=== PATIENT | male | born 1975 | race Caucasian/White ===

== ENCOUNTER 2017-11-18 15:38 | Emergency (ER) | payer MEDICAID ==
[2017-11-18 15:51] VITALS: BP 152/92
[2017-11-18] MEDS ORDERED: Tetan/Diph/Pertus SYR(Tdap)* 0.5 ML SYR(BOOSTRIX) use SYR IM ONE (16:11)
--- NOTE | 2017-11-18 16:39 | UC ---
Laceration HPI - HPI Summary HPI Summary: Pt c/o laceration to left thumb. 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 Pt is not UTD with tetanus. Bleeding controlled. - History Of Current Complaint Chief Complaint: UCTrauma Stated Complaint: LEFT THUMB LAC Time Seen by Provider: 11/18/17 16:07 Hx Obtained From: Patient Laceration Location: Finger Mechanism Of Injury: Sharp Trauma Onset/Duration: Sudden Onset Severity: Mild Pain Intensity: 4 Pain Scale Used: 0-10 Numeric Aggravating Factors: Position, Movement Related History: Dominant Hand Right - Allergies/Home Medications Allergies/Adverse Reactions: Allergies Allergy/AdvReac Type Severity Reaction Status Date / Time Penicillins AdvReac Intermediate THRUSH Verified 11/18/17 15:52 PMH/Surg Hx/FS Hx/Imm Hx Previously Healthy: Yes - Surgical History Surgical History: None - Family History Known Family History: Positive: Cardiac Disease - Social History Occupation: Employed Full-time Lives: With Family Alcohol Use: None Substance Use Type: None Smoking Status (MU): Former Smoker Type: Cigarettes Amount Used/How Often: 1 1/2 ppd Length of Time of Smoking/Using Tobacco: 24 yrs Have You Smoked in the Last Year: Yes When Did the Patient Quit Smoking/Using Tobacco: 03/23 - Immunization History Vaccination Up to Date: No Review of Systems Constitutional: Negative Skin: Other - laceration left thumb Eyes: Negative ENT: Negative Respiratory: Negative Cardiovascular: Negative Gastrointestinal: Negative Genitourinary: Negative Motor: Negative Neurovascular: Negative Musculoskeletal: Negative Neurological: Negative Psychological: Negative Is Patient Immunocompromised?: No All Other Systems Reviewed And Are Negative: Yes Physical Exam Triage Information Reviewed: Yes Appearance: Well-Appearing Vital Signs: Initial Vital Signs Temp 98.2 F 11/18/17 15:47 Pulse 91 11/18/17 15:47 Resp 18 11/18/17 15:47 BP 152/92 11/18/17 15:47 Pulse Ox 100 11/18/17 15:47 Vital Signs Reviewed: Yes Eye Exam: Normal ENT Exam: Normal Neck exam: Normal Respiratory: Positive: No respiratory distress Musculoskeletal: Positive: Strength Intact, ROM Intact Neurological Exam: Normal Psychological Exam: Normal Skin Exam: Other - laceration to left thumb anterior aspect Laceration Repair - Laceration Repair 1 Description: Linear Laceration Size After Repair: Length (cm) - 1, Width (mm) - 1, Depth (mm) - 2 Modified For Repair: No Irrigation With Pressure Irrigation Device: Yes Closure Material: Skin Adhesive Closure Method: Single Layer Suture Of: Skin Laceration Course/Dx - Differential Dx - Laceration/Wound Differental Diagnoses: Laceration Provider Diagnoses: left thumb laceration repair with skin adhesive Discharge - Discharge Plan Condition: Stable Disposition: HOME Patient Education Materials: Skin Adhesive Care (ED) Referrals: Cintia Copeland MD [Primary Care Provider] - If Needed
== END 2017-11-18 16:29 | disposition home or self-care (01) ==
LOC: UCCORT 15:38
DX: S61.012A Laceration without foreign body of left thumb without damage to nail, initial encounter (principal); W29.0XXA Contact with powered kitchen appliance, initial encounter; Y93.9 Activity, unspecified; Y92.9 Unspecified place or not applicable; Z23 Encounter for immunization; Z88.0 Allergy status to penicillin; Z87.891 Personal history of nicotine dependence
CPT/HCPCS: 12001; 90715; 96372; 99211; G0463

== ENCOUNTER 2019-02-04 13:40 | Emergency (ER) | payer MEDICARE, MEDICAID ==
--- OUTSIDE RECORDS SUMMARY | 2019-02-04 13:54 | XMS REPORT | Continuity of Care Document ---
:1975 External Reference #:[id number] Author Name Aleyda Cobb Care Team Providers Name Role Phone Cintia Copeland MD Care Team Information Computer Methods Analyst Unavailable Cintia Copeland MD Primary Care Physician Unavailable Payers Date Identification Numbers Payment Provider Subscriber Policy Number: [id number] Medicare Jonel Law PayID: [id number] [address] [place] [address] Policy Number: [id number] Medicaid Jonel Law PayID: [id number] [address] [place] [address] Social History Type Date Description Comments Sex Unknown Tobacco Use Start: Unknown End: Used To Smoke Cigarettes But Unknown Quit. ETOH Use Rare Use Of Alcohol Recreational Drug Use Treated For Substance Abuse In The Past Allergies, Adverse Reactions, Alerts Active Allergies Reaction Severity Comments Date Penicillin Hives Moderate 07/30/2018 Medications Active Medications SIG Qnty Indications Ordering Date Provider Percocet 1-2 by mouth four 20tabs Rafeal Paraad, 01/02/2019 5-325mg Tablets times a day as M.D. needed for pain Fluticasone Propionate 2 sprays both 32gm Rafael Parada, 07/30/2018 nostrils every M.D. 50mcg/Act Suspension day Gabapentin 1 by mouth bid Unknown 300mg Capsules Loratadine 1 by mouth every Unknown 10mg Capsules day Metoprolol Succinate 1 by mouth every Unknown ER day 50mg Tablets ER 24HR Soma prn Unknown 350mg Tablets Oxcarbazepine 2 po qd Unknown 300mg Tablets History Medications Azithromycin 1 by mouth every 5tabs Rafael Parada, 11/28/2018 - 500mg Tablets day M.D. 01/09/2019 Percocet 1-2 by mouth four 20tabs Tal Rafael, 09/17/2018 - 5-325mg Tablets times a day as M.D. 11/04/2018 needed for pain Azithromycin 1 by mouth every 5tabs Tal Rafael, 09/17/2018 - 500mg Tablets day M.D. 09/24/2018 Dexamethasone 1 by mouth daily 3tabs Rafael Parada, 09/17/2018 - 6mg Tablets in the morning M.D. 09/24/2018 Azithromycin 1 by mouth every 5tabs Rafael Parada, 07/30/2018 - 500mg Tablets day M.D. 09/24/2018 Hydrocodone prn Unknown - Bitartrate/Acetaminophe 09/17/2018 n 10-325mg Tablets Vital Signs Date Vital Result Comment 01/09/2019 10:16am Weight 303.00 lb Height 68 inches 5'8" BMI (Body Mass Index) 46.1 kg/m2 BP Systolic 146 mmHg BP Diastolic 85 mmHg Heart Rate 76 /min O2 % BldC Oximetry 97 % Body Temperature 96.9 F Pain Level 3 11/05/2018 11:16am Weight 312.00 lb Height 68 inches 5'8" BMI (Body Mass Index) 47.4 kg/m2 BP Systolic 123 mmHg BP Diastolic 85 mmHg Heart Rate 75 /min O2 % BldC Oximetry 98 % Body Temperature 97.8 F Pain Level 0 09/24/2018 11:27am Weight 305.00 lb Height 68 inches 5'8" BMI (Body Mass Index) 46.4 kg/m2 BP Systolic 157 mmHg BP Diastolic 102 mmHg Heart Rate 79 /min O2 % BldC Oximetry 97 % Body Temperature 97.4 F Pain Level 6 07/30/2018 10:44am Weight 306.00 lb Height 68 inches 5'8" BMI (Body Mass Index) 46.5 kg/m2 BP Systolic 132 mmHg BP Diastolic 84 mmHg Heart Rate 65 /min O2 % BldC Oximetry 97 % Body Temperature 96.9 F Pain Level 4 Results Test Date Facility Test Result H/L Range Note Laboratory test 09/17/2018 [facility] Surgical SEE RESULT [address] [place] [address] [phone] 1 SEE RESULT BELOW Name: JONEL LAW Urbano Leslie : [address]: Rafael Parada MD Acct: [id number] Unit: [id number] AGE: 43 Location: [facility] Re09/17/18 SEX: M Status: REG REF SPEC: [id number] ESE: 09/17/181320 [facility] DR: Rafael Parada MD REQ: [id number] RECD: 09/17/18 STATUS: SOUT _ ORDERED: LEVEL 4 COMMENTS: [id number] FINAL DIAGNOSIS Right nasal cavity, biopsy: -- Benign sinonasal polyp. CLINICAL HISTORY No history given GROSS DESCRIPTION The specimen is received in formalin labeled, Right Nasal Cavity Biopsy, and consists of a 0.4 x 0.3 x 0 1 cm neely-brown irregular soft tissue fragment admixed with scant probable bone. Entirely submitted, one cassette. Signed by and Reported on: Zaira Springer MD 09/19/18 1052 END OF REPORT DEPARTMENT OF PATHOLOGY, [address] [place] [address] Juan Skinner M.D. Director [facility] # [id number] Procedures Date Code Description Status 09/17/2018 95267 Stereotactic Computer-Assisted, Cranial, Extradural Completed 09/17/2018 87650 Nasal/Sinus Endosc.W.Max.Antrost. Completed 09/17/2018 99661 Nasal/Sinus Endosc,Surg.W.Eth/Par Completed 09/17/2018 26875 Septoplasty Completed 09/17/2018 52006 Submucous Resect.Turb.Par Or Comp Completed 09/17/2018 08136 Anesthesia, Nose & Accessory Sinus Surgery Not Otherwise Completed Spec 08/29/2018 77818 Cat Scan Maxillofacial W/O Contrast,computed tomography Completed 08/29/2018 40136 Cat Scan Maxillofacial W/O Contrast,computed tomography Completed 07/30/2018 28951 Nasal Endoscopy, Diag. Completed Encounters Type Date Location Provider Dx Diagnosis Office Visit 07/30/2018 Main Office Rafael Parada M.D. J32.9 Chronic sinusitis, 10:15a unspecified J33.0 Polyp of nasal cavity J34.2 Deviated nasal septum E66.9 Obesity, unspecified
[2019-02-04 14:31] VITALS: BP 174/99
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
== END 2019-02-04 14:57 | disposition home health service (06) ==
LOC: UCCORT 13:40
DX: R10.13 Epigastric pain (principal); I10 Essential (primary) hypertension; Z79.899 Other long term (current) drug therapy; Z87.891 Personal history of nicotine dependence
CPT/HCPCS: 99212; G0463

== ENCOUNTER 2019-04-17 11:01 | Emergency (ER) | payer MEDICAID, MEDICARE ==
--- OUTSIDE RECORDS SUMMARY | 2019-04-17 11:26 | XMS REPORT | Continuity of Care Document ---
:1975 External Reference #:[id number] Author Name Carlos Knapp MD Address [facility] [place] [address] Care Team Providers Name Role Phone Kai Gibbs MD Care Team Information Cuff Turner Unavailable Kai Gibbs MD Primary Care Physician Unavailable Payers Date Identification Numbers Payment Provider Subscriber Policy Number: [id number] Medicare [employer] PayID: [id number] [facility] [address] [place] [address] Policy Number: [id number] Medicaid/Medicare [employer] Name: 2 1 [facility] Federal [employer]-Civil GP PayID: [id number] [address] [place] [address] Problems Active Problems Provider Date Nausea and vomiting Argentina Castillo PA-C Onset: 02/27/2019 Abdominal pain Argentina Castillo PA-C Onset: 02/27/2019 Gastroesophageal reflux disease Argentina Castillo PA-C Onset: 02/27/2019 Essential hypertension Argentina Castillo PA-C Onset: 03/09/2019 Social History Type Date Description Comments Sex Unknown Tobacco Use Start: Unknown End: Patient is a former smoker Unknown Recreational Drug Use Current Drug User marijuana Smoking Status Reviewed: 02/27/19 Patient is a former smoker Allergies, Adverse Reactions, Alerts Active Allergies Reaction Severity Comments Date Penicillin 02/27/2019 Medications Active Medications SIG Qnty Indications Ordering Date Provider Omeprazole 1 cap by mouth 60caps K21.9 Mychal Carsonrdan, DO 02/27/[address] bid 30 minutes before meals Vimpat Take 1 Tablet By Unknown 50mg Tablets Mouth Twice Daily . DO Not Exceed 2 Per 24 Hours Oxcarbazepine Take 1 & 1 2 Unknown 600mg Tablets (One & One Half) Tablets By Mouth Twice Daily Sucralfate Austin Duncan PA 1gm Tablets Ranitidine HCL Take 2 Tablets Unknown 150mg By Mouth as Tablets Needed For Reflux Ondansetron Austin Duncan PA 4mg Tablets Dispers Metoclopramide HCL Take 1 Tablet By Unknown 10mg Mouth Three Tablets Times Daily as Needed For Nausea Metoprolol Tartrate Take 1/2 Unknown 100mg (One-Half) Tablets Tablet By Mouth Once Daily Allopurinol Unknown 100mg Tablets Loratadine Unknown 10mg Tablets Fluticasone Propionate Rafael Parada MD 50mcg/Act Suspension History Medications Omeprazole 40mg bid Austin Duncan PA - 02/[address] Vital Signs Date Vital Result Comment 02/27/2019 1:43pm Height 73 inches 6'1" Weight 295.00 lb BP Systolic 154 mmHg BP Diastolic 95 mmHg Heart Rate 80 /min BMI (Body Mass Index) 38.9 kg/m2 Results Test Date Facility Test Result H/L Range Note Laboratory test 03/17/2019 [facility] [place] Surgical SEE RESULT 1 finding Pathology BELOW Laboratory test 03/17/2019 [facility] [place] [facility] Clotest SEE RESULT 2 finding BELOW 1 SEE RESULT BELOW Name: JONEL LAW : [address]: Carlos Knapp MD Acct: [id number] Unit: [id number] AGE: 43 Location: [facility] Re03/17/19 SEX: M Status: DEP REF SPEC: [id number] ESE: 03/17/[address] [facility] [address]: Carlos Knapp MD REQ: [id number] RECD: 03/17/19 STATUS: ZEINAB HENRIQUEZ DR: Kai Gibbs MD _ ORDERED: LEVEL 4/2 FINAL DIAGNOSIS 1. Gastric body, biopsy: -- Partially denuded gastric oxyntic gland mucosa with diffuse chronic inflammation. -- No active gastritis nor Helicobacter pylori-like organisms identified. See comment. 2. Small bowel, duodenum, biopsy: -- Small bowel mucosa with focal submucosal nonpolarizable foreign material deposition. See comment. -- Normal villous architecture and no significant pathologic abnormality. Comment: An immunohistochemical stain for Helicobacter pylori-like organisms is pending in part 1 and will be reported in an addendum. The small bowel biopsy demonstrates a single foreign material deposit measuring up to 0.35 mm containing enumerable small irregular shaped fragments of refractile, non-polarizable foreign material. No foreign body giant cell reaction is noted. While not specifically identifiable, subcutaneous mucosal foreign material deposits have been associated with ingestion of non-absorbable materials, frequently as components of medications or supplements. Correlation with clinical and endoscopic findings is suggested. CLINICAL HISTORY Nausea; vomiting CONTINUED ON NEXT PAGE DEPARTMENT OF PATHOLOGY, [address] [place] [address] Juan Skinner M.D. Director [facility] # [id number] RUN DATE: 03/18/19 [facility] LAB LIVE PAGE 2 Patient: JONEL LAW Mariama [id number] (Continued) POST-OPERATIVE DIAGNOSIS (Continued) POST-OPERATIVE DIAGNOSIS EGD: esophagus - normal; gastric - mild gastritis; biopsy; duodenum - biopsy GROSS DESCRIPTION 1. The specimen is received in formalin labeled, Gastric Body Biopsies, and consists of two neely-pink irregular soft tissue fragments measuring 0.2 x 0.2 x 0.1 cm and 0.4 x 0.3 x 0.1 cm which are submitted entirely in one cassette. 2. The specimen is received in formalin labeled, Duodenal Biopsies, and consists of three neely-pink irregular soft tissue fragments aggregating 0.4 x 0.3 by up to 0.2 cm which are submitted entirely in one cassette. Signed by and Reported on: Juan Skinner MD 05/29 1121 END OF REPORT DEPARTMENT OF PATHOLOGY, [address] [place] [address] Juan Skinner M.D. Director [facility] # [id number] SEE RESULT BELOW Name: DREWShabanaJONEL : [address]: Carlos Knapp MD Acct: [id number] Unit: [id number] AGE: 43 Location: ENDO Re03/17/19 SEX: M Status: DEP REF SPEC: [id number] ESE: 03/17/[address]: Carlos Knapp MD REQ: [id number] RECD: 03/17/19 STATUS: ZEINAB HENRIQUEZ DR: Kai Gibbs MD _ ORDERED: LEVEL 4/2 FINAL DIAGNOSIS 1. Gastric body, biopsy: -- Partially denuded gastric oxyntic gland mucosa with diffuse chronic inflammation. -- No active gastritis nor Helicobacter pylori-like organisms identified. See comment. 2. Small bowel, duodenum, biopsy: -- Small bowel mucosa with focal submucosal nonpolarizable foreign material deposition. See comment. -- Normal villous architecture and no significant pathologic abnormality. Comment: An immunohistochemical stain for Helicobacter pylori-like organisms is pending in part 1 and will be reported in an addendum. The small bowel biopsy demonstrates a single foreign material deposit measuring up to 0.35 mm containing enumerable small irregular shaped fragments of refractile, non-polarizable foreign material. No foreign body giant cell reaction is noted. While not specifically identifiable, subcutaneous mucosal foreign material deposits have been associated with ingestion of non-absorbable materials, frequently as components of medications or supplements. Correlation with clinical and endoscopic findings is suggested. CLINICAL HISTORY Nausea; vomiting CONTINUED ON NEXT PAGE DEPARTMENT OF PATHOLOGY, [address] [place] [address] Juan Skinner M.D. Director [facility] # [id number] RUN DATE: 03/18/19 [facility] LAB LIVE PAGE 2 Patient: DREWShabanaJONEL [id number] (Continued) POST-OPERATIVE DIAGNOSIS (Continued) POST-OPERATIVE DIAGNOSIS EGD: esophagus - normal; gastric - mild gastritis; biopsy; duodenum - biopsy GROSS DESCRIPTION 1. The specimen is received in formalin labeled, Gastric Body Biopsies, and consists of two neely-pink irregular soft tissue fragments measuring 0.2 x 0.2 x 0.1 cm and 0.4 x 0.3 x 0.1 cm which are submitted entirely in one cassette. 2. The specimen is received in formalin labeled, Duodenal Biopsies, and consists of three neely-pink irregular soft tissue fragments aggregating 0.4 x 0.3 by up to 0.2 cm which are submitted entirely in one cassette. Signed by and Reported on: Juan Skinner MD 05/29 1121 END OF REPORT DEPARTMENT OF PATHOLOGY, [address] [place] [address] Juan Skinner M.D. Director [facility] # [id number] SEE RESULT BELOW Name: JONEL LAW : [address]: Carlos Knapp MD Acct: [id number] Unit: [id number] AGE: 43 Location: ENDO Re03/17/19 SEX: M Status: DEP REF SPEC: [id number] ESE: 07/ SUBM DR: Carlos Knapp MD REQ: [id number] RECD: 03/17/190629 STATUS: ZEINAB HENRIQUEZ DR: Kai Gibbs MD _ ORDERED: LEVEL 4/2, IMMUNO-FIRST ADDENDUM Addendum: An immunohistochemical stain for Helicobacter pylori-like organisms was performed with appropriate controls demonstrating nonspecific polymorphous bacterial contamination. Helicobacter pylori-like organisms are not identified. Addendum Signed (signature on file) Juan Skinner MD 1010 FINAL DIAGNOSIS 1. Gastric body, biopsy: -- Partially denuded gastric oxyntic gland mucosa with diffuse chronic inflammation. -- No active gastritis nor Helicobacter pylori-like organisms identified. See comment. 2. Small bowel, duodenum, biopsy: -- Small bowel mucosa with focal submucosal nonpolarizable foreign material deposition. See comment. -- Normal villous architecture and no significant pathologic abnormality. Comment: An immunohistochemical stain for Helicobacter pylori-like organisms is pending in part 1 and will be reported in an addendum. The small bowel biopsy demonstrates a single foreign material deposit measuring up to 0.35 mm containing enumerable small irregular shaped fragments of refractile, non-polarizable foreign material. No foreign body giant cell reaction is noted. While not specifically identifiable, subcutaneous mucosal foreign material deposits have been associated with ingestion of non-absorbable materials, frequently as CONTINUED ON NEXT PAGE DEPARTMENT OF PATHOLOGY, [address] [place] [address] Juan Skinner M.D. Director [facility] # [id number] RUN DATE: 03/19/19 [facility] LAB LIVE PAGE 2 Patient: JONEL LAW [id number] (Continued) SPECIMEN COMMENTS (Continued) components of medications or supplements. Correlation with clinical and endoscopic findings is suggested. CLINICAL HISTORY Nausea; vomiting POST-OPERATIVE DIAGNOSIS EGD: esophagus - normal; gastric - mild gastritis; biopsy; duodenum - biopsy GROSS DESCRIPTION 1. The specimen is received in formalin labeled, Gastric Body Biopsies, and consists of two neely-pink irregular soft tissue fragments measuring 0.2 x 0.2 x 0.1 cm and 0.4 x 0.3 x 0.1 cm which are submitted entirely in one cassette. 2. The specimen is received in formalin labeled, Duodenal Biopsies, and consists of three neely-pink irregular soft tissue fragments aggregating 0.4 x 0.3 by up to 0.2 cm which are submitted entirely in one cassette. Signed by and Reported on: Juan Skinner MD 05/29 1121 END OF REPORT DEPARTMENT OF PATHOLOGY, [address] [place] [address] Juan Skinner M.D. Director [facility] # [id number] SEE RESULT BELOW Name: JONEL LAW : [address]: Carlos Knapp MD Acct: [id number] Unit: [id number] AGE: 43 Location: ENDO Re03/17/19 SEX: M Status: DEP REF SPEC: [id number] ESE: 03/17/[address] [facility] [address]: Carlos Knapp MD REQ: [id number] RECD: 03/17/193909 STATUS: ZEINAB HENRIQUEZ DR: Kai Gibbs MD _ ORDERED: LEVEL 4/2, IMMUNO-FIRST ADDENDUM Addendum: An immunohistochemical stain for Helicobacter pylori-like organisms was performed with appropriate controls demonstrating nonspecific polymorphous bacterial contamination. Helicobacter pylori-like organisms are not identified. Addendum Signed (signature on file) Juan Skinner MD 1010 FINAL DIAGNOSIS 1. Gastric body, biopsy: -- Partially denuded gastric oxyntic gland mucosa with diffuse chronic inflammation. -- No active gastritis nor Helicobacter pylori-like organisms identified. See comment. 2. Small bowel, duodenum, biopsy: -- Small bowel mucosa with focal submucosal nonpolarizable foreign material deposition. See comment. -- Normal villous architecture and no significant pathologic abnormality. Comment: An immunohistochemical stain for Helicobacter pylori-like organisms is pending in part 1 and will be reported in an addendum. The small bowel biopsy demonstrates a single foreign material deposit measuring up to 0.35 mm containing enumerable small irregular shaped fragments of refractile, non-polarizable foreign material. No foreign body giant cell reaction is noted. While not specifically identifiable, subcutaneous mucosal foreign material deposits have been associated with ingestion of non-absorbable materials, frequently as CONTINUED ON NEXT PAGE DEPARTMENT OF PATHOLOGY, [address] [place] [address] Juan Skinner M.D. Director [facility] # [id number] RUN DATE: 03/19/19 [facility] LAB LIVE PAGE 2 Patient: JONEL LAW [id number] (Continued) SPECIMEN COMMENTS (Continued) components of medications or supplements. Correlation with clinical and endoscopic findings is suggested. CLINICAL HISTORY Nausea; vomiting POST-OPERATIVE DIAGNOSIS EGD: esophagus - normal; gastric - mild gastritis; biopsy; duodenum - biopsy GROSS DESCRIPTION 1. The specimen is received in formalin labeled, Gastric Body Biopsies, and consists of two neely-pink irregular soft tissue fragments measuring 0.2 x 0.2 x 0.1 cm and 0.4 x 0.3 x 0.1 cm which are submitted entirely in one cassette. 2. The specimen is received in formalin labeled, Duodenal Biopsies, and consists of three neely-pink irregular soft tissue fragments aggregating 0.4 x 0.3 by up to 0.2 cm which are submitted entirely in one cassette. Signed by and Reported on: Juan Skinner MD 05/29 1121 END OF REPORT DEPARTMENT OF PATHOLOGY, [address] [place] [address] Juan Skinner M.D. Director [facility] # [id number] SEE RESULT BELOW Name: DREWShabanaJONEL : [address]: Carlos Knapp MD Acct: [id number] Unit: [id number] AGE: 43 Location: ENDO Re03/17/19 SEX: M Status: REG REF SPEC: [id number] ESE: 03/17/[address]: Carlos Knapp MD REQ: [id number] RECD: 03/17/19 STATUS: JOSÉ MIGUEL HENRIQUEZ DR: Kai Gibbs MD _ SOURCE: GAS ANTRUM SPDESC: ORDERED: Clotest Procedure Result Reported Site Clotest Final 03/18/19726 ML Clotest Negative * ML - Main Lab . END OF REPORT DEPARTMENT OF PATHOLOGY, [address] [place] [address] Juan Skinner M.D. Director [facility] # [id number] SEE RESULT BELOW Name: JONEL LAW : [address]: Carlos Knapp MD Acct: [id number] Unit: [id number] AGE: 43 Location: ENDO Re03/17/19 SEX: M Status: REG REF SPEC: [id number] ESE: 03/17/[address] [facility] [address]: Carlos Knapp MD REQ: [id number] RECD: 03/17/19867 STATUS: COMP OTHR DR: Kai Gibbs MD _ SOURCE: GAS ANTRUM SPDESC: ORDERED: Clotest Procedure Result Reported Site Clotest Final 03/18/19- 726 ML Clotest Negative * ML - Main Lab . END OF REPORT DEPARTMENT OF PATHOLOGY, [address] [place] [address] Juan Skinner M.D. Director [facility] # [id number] Plan of Treatment 02/27/2019 - KANDICE Bryant-CK21.9 Gastro-esophageal reflux disease without esophagitisNew Medication:Omeprazole 40 mg - 1 cap by mouth bid 30 minutes before tfnigO65.10 Upper abdominal pain, kcxguqbbqcrU92.2 Nausea with vomiting, unspecified
--- OUTSIDE RECORDS SUMMARY | 2019-04-17 11:26 | XMS REPORT | Continuity of Care Document ---
:1975 External Reference #:[id number] Author Name Kai Gibbs M.D. Address [address] [facility] [address] [place] [address] Care Team Providers Name Role Phone Kai Gibbs MD Care Team Information Pill Coater Unavailable Payers Date Identification Numbers Payment Provider Subscriber Effective: 2015 Policy Number: [id number] Medicare Jonel Law PayID: [id number] [address] [place] [address] Policy Number: [id number] Medicaid/[employer] Jonel Law PayID: [id number] [address] [place] [address] Effective: 2018 Policy Number: [id number] [facility] Jonel Law Expires: 2018 PayID: [id number] [address] [place] [address] Effective: 2001 Policy Number: [id number] BURTON Wu Susi Law Expires: 2003 Group Number: [id number] [address] [address] Group Name: [place] [address] PayID: [id number] Problems Active Problems Provider Date Abdominal pain Onset: 02/27/2019 Essential hypertension Onset: 03/09/2019 Gastroesophageal reflux disease Onset: 02/27/2019 Nausea and vomiting Onset: 02/27/2019 Family History Date Family Member(s) Observation Comments General Hypertension General Peripheral Vascular Disease (PVD) Father 71 Father Hypertension Father Coronary Artery Disease Mother 69 Mother Arthritis Children 2 First Son 10 First Daughter 14 Siblings 2 Social History Type Date Description Comments Sex Unknown Lives With Children Lives With Spouse Work Status Disabled ETOH Use Denies alcohol use Tobacco Use Start: Unknown End: Patient is a former smoker Unknown Recreational Drug Use Formerly used Marijuana sporadically Smoking Status Reviewed: 09/10/17 Patient is a former smoker Allergies, Adverse Reactions, Alerts Active Allergies Reaction Severity Comments Date Penicillins 02/10/2019 Penicillin 03/10/2019 Medications Active Medications SIG Qnty Indications Ordering Provider Date PT Tiw X 6-8 WKS pain r hip and M25.551 Kai Gibbs, 03/20/2019 lower back M.D. M51.37 M54.17 Ondansetron 1 tab by mouth 30tabs R11.2 Kai Gibbs, 02/10/2019 4mg Tablets every 4 hours as M.D. Dispers needed Carafate 1 tab by mouth 90tabs K21.0 Kai Gibbs, 02/10/2019 1gm Tablets three times a day M.D. before meals K30 Omeprazole 1 by mouth bid 60caps K21.0 Kai Gibbs, 02/10/[address] every day M.D. K30 Zantac 150 Maximum 1 tabs by mouth 60tabs K21.0 Kai Gibbs, 2018 Strength twice a day M.D. 150mg Tablets K30 Tizanidine HCL Take 1 To 3 Tablets By M51.37 Unknown 2mg Tablets Mouth Every Day AT Bedtime as Needed For Spasm Max Daily Dose Of 3 Tablets M54.17 Vimpat Take 1 Tablet By Mouth G40.909 Unknown 50mg Tablets Twice Daily . DO Not Exceed 2 Per 24 Hours Aptiom Take 2 Tablets By G40.909 Unknown 800mg Tablets Mouth Once Daily AT Night AT Bedtime Pantoprazole Sodium 1 tab by mouth twice a 180tabs K21.[address] day K30 Fluticasone Propionate J30.9 Unknown 50mcg/Act Suspension Allopurinol 1 by mouth every day 90tabs M10.9 Unknown 100mg Tablets Loratadine J30.9 Unknown 10mg Tablets Oxcarbazepine 1 by mouth three 60tabs G40.909 Unknown 600mg Tablets times a day Metoclopramide HCL Take 1 Tablet By K21.0 Unknown 10mg Tablets Mouth Three Times Daily as Needed For Nausea K30 R11.2 Metoprolol Tartrate Take 1/2 (One-Half) Tablet By I10 Unknown 100mg Tablets Mouth Once Daily History Medications Azithromycin z debra uad 6tabs Kai Gibbs, 02/17/2019 - 250mg M.D. 03/10/2019 Tablets Ondansetron HCL Take 1 Tablet By Unknown - 4mg Mouth Every 8 03/10/2019 Tablets Hours as Needed For Nausea Sucralfate Take 1 Tablet By Unknown - 1gm Tablets Mouth Three Times 03/10/2019 Daily Zonisamide Take 1 Capsule By Unknown - 100mg Capsules Mouth AT Night For 03/10/2019 2 Weeks Then 2 Capsules AT Night Vital Signs Date Vital Result Comment 03/20/2019 2:12pm BP Systolic 134 mmHg BP Diastolic 82 mmHg Height 73 inches 6'1" Weight 290.00 lb BMI (Body Mass Index) 38.3 kg/m2 Heart Rate 75 /min Respiratory Rate 16 /min 02/17/2019 10:33am BP Systolic 136 mmHg BP Diastolic 74 mmHg Height 73 inches 6'1" Weight 295.00 lb BMI (Body Mass Index) 38.9 kg/m2 Heart Rate 75 /min Respiratory Rate 18 /min 02/10/2019 1:25pm BP Systolic 132 mmHg BP Diastolic 84 mmHg Height 73 inches 6'1" Weight 303.00 lb BMI (Body Mass Index) 40.0 kg/m2 Heart Rate 76 /min Respiratory Rate 16 /min Results Test Date Facility Test Result H/L Range Note Laboratory test 03/17/2019 [facility] Surgical SEE RESULT 1 finding Pathology BELOW Laboratory test 03/17/2019 [facility] Clotest SEE RESULT 2 finding BELOW CBC With Diff 02/10/2019 [facility] [place] WBC 9.8 10*3/uL (4.1-11.0) [address] [facility] (607)- - RBC 5.36 10*6/uL (4.60-6.10) HGB 15.5 g/dL (13.5-18.0) HCT 45.2 % (41.0-53.0) MCV 84.3 fL (80.0-95.0) MCH 29.0 pg (27.0-32.0) MCHC 34.4 g/dL (32.0-36.0) RDW 13.3 % (10.5-14.5) PLT 214 10*3/uL (150-450) MPV 9.5 fL (7.1-10.7) Neut % 78.8 % High (35.0-75.0) Lymph % 14.0 % Low (16.0-52.0) [place] % 5.1 % (0.0-8.0) Eos % 1.6 % (0.0-5.0) Baso % 0.5 % (0.0-4.0) Neut # 7.7 10*3/uL (1.8-7.7) Lymph # 1.4 10*3/uL (1.2-4.8) [place] # 0.5 10*3/uL (0.0-0.8) Eos # 0.2 10*3/uL (0.0-0.5) Baso # 0.0 10*3/uL (0.0-0.2) CMP 02/10/2019 [facility] [place] Sodium 132 mmol/L Low (136-145) [address] (607)- - Potassium 3.8 mmol/L (3.6-5.2) Chloride 101 mmol/L (100-108) Co2 22 mmol/L (22-31) Anion Gap 9 mmol/L (7-16) Urea Nitrogen 8 mg/dL (7-24) Creatinine 0.76 mg/dL Low (0.80-1.30) BUN/Creat Ratio 10.5 RATIO (10.0-20.0) Glucose 99 mg/dL (70-99) Calcium 8.6 mg/dL (8.4-10.2) Total Protein 6.7 g/dL (6.4-8.2) Albumin 4.0 g/dL (3.5-4.6) Globulin 2.7 g/dL (2.7-4.3) Alb/Glob Ratio 1.5 RATIO Alkaline Phosphatase 133 U/L High (45-117) Bilirubin,Total 0.4 mg/dL (0.0-1.0) Ast (Sgot) 16 U/L (11-39) Alt (SGPT) 16 U/L (12-78) GFR >60 ml/min/1.73m2 (>59) GFR ( Amer) >60 ml/min/1.73m2 (>59) GFR Interpretation <SEE NOTE> 3 Laboratory test finding 02/10/2019 [facility] Amylase 50 U/L (25-115) [facility] OLIVARES (607)- - Lipase 162 U/L (65-230) Lipid 02/10/2019 Lab [place] Cholesterol @ 142 mg/dL (0-200) [address] [facility] (607)- - Triglyceride @ 107 mg/dL (30-200) HDL Cholesterol @ 36 mg/dL Low (>40) 4 Chol/HDL Ratio 3.9 RATIO 5 LDL Chol (Calc) 85 mg/dL (<130) 6 Carbamazepine Epox & 02/10/2019 [facility] [place] 10,11 Carbamaze <0.5 ug/mL 7 Total [address] [facility] Epox (607)- - Carbamazepine Total <2.0 ug/mL Low 8 Laboratory test 02/10/2019 [facility] [place] Magnesium 1.9 mg/dL (1.7-2.4) finding [address] [facility] (607)- - 25 Hydroxy Vit D @ 23 ng/mL Low (31-100) 9 Esr 5 mm/h (0-15) C Reactive Protein @ 1.5 mg/dL High (0.0-0.5) Rheumatoid Factor @ <15 IU/mL (0-15) Uric Acid 3.4 mg/dL Low (3.5-7.2) Hemoglobin A1c 02/10/2019 Lab [place] Hemoglobin A1c @ 5.4 % (4.0-6.0) 10 [address] [facility] (602)- - Est Average Glucose 108 mg/dL Laboratory 02/10/2019 [facility] TSH,Ultrasensitive @ 1.920 (0.360- 4.170) test finding Dennise OLIVARES mIU/L (603)- - 1 SEE RESULT BELOW Name: JONEL LAW : [address]: Carlos Knapp MD Acct: [id number] Unit: [id number] AGE: 43 Location: ENDO Re03/17/19 SEX: M Status: DEP REF SPEC: [id number] ESE: 03/17/19 [facility] DR: Carlos Knapp MD REQ: [id number] RECD: 03/17/19 STATUS: ZEINAB HENRIQUEZ DR: Kai [...] CONTINUED ON NEXT PAGE DEPARTMENT OF PATHOLOGY, [address] [place] [address] Juan Skinner M.D. Director [facility] # [id number] RUN DATE: 03/19/19 [facility] LAB LIVE PAGE 2 Patient: JONEL LAW [id number] (Continued) SPECIMEN COMMENTS (Continued) components of medications [...] 1121 END OF REPORT DEPARTMENT OF PATHOLOGY, [address] [place] [address] Juan Skinner M.D. Director [place] # [id number] 2 SEE RESULT BELOW Name: JONEL LAW : [address]: Carlos Knapp MD Acct: [id number] Unit: [id number] AGE: 43 Location: [facility] Re03/17/19 SEX: M Status: REG REF SPEC: [id number] ESE: 03/17/19 [facility] DR: Carlos Knapp MD REQ: [id number] RECD: 03/17/19 STATUS: JOSÉ MIGUEL HENRIQUEZ DR: Kai Gibbs MD _ SOURCE: [facility]: ORDERED: Clotest Procedure Result Reported Site Clotest Final 03/18/19726 ML Clotest Negative * ML - Main Lab . END OF REPORT DEPARTMENT OF PATHOLOGY, [address] [place] [address] Juan Skinner M.D. Director [facility] # [id number] 3 NORMAL KIDNEY FUNCTION OR MILD DISEASE - GFR >OR=60 CHRONIC KIDNEY DISEASE - GFR 15 - 59 RENAL FAILURE - GFR <15 Est. GFR calculation based on the MDRD study equation, which assumes a steady state for creatinine. Est. GFR should not be used for medication dosing. 4 PER NCEP ATP III GUIDELINES: RESULTS LOWER THAN 40 MG/DL ARE SUGGESTIVE OF INCREASED RISK FOR CORONARY ARTERY DISEASE. RESULTS > OR=TO 60 MG/DL ARE CONSIDERED A NEGATIVE RISK FACTOR. 5 INTERPRETATION OF CHOL-HDL RATIO CHD RISK FEMALE MALE VERY HIGH >8.3 >14.3 HIGH 5.6- 8.3 6.7- 14.3 AVERAGE 3.7- 5.6 4.0- 6.7 BELOW AVERAGE 2.5- 3.7 2.7- 4.0 PROTECTED <2.5 <2.7 6 PER NCEP ATP III GUIDELINES: OPTIMAL < 100 NEAR OPTIMAL 100 - 129 BORDERLINE HIGH 130 - 159 HIGH 160 - 189 VERY HIGH > 189 7 INTERPRETIVE INFORMATION: Carbamazepine-10, 11-Epoxide Carbamazepine-10, 11 Epoxide Therapeutic Range: Not well established Toxic: Greater than 15.0 ug/mL Total Carbamazepine Therapeutic Range: 4.0-12.0 ug/mL Toxic: Greater than 15.0 ug/mL The therapeutic range is based on serum pre-dose (trough) draw at steady-state concentration. The carbamazepine metabolite, Carbamazepine-10, 11-Epoxide, has anticonvulsant activity and a proposed therapeutic range of 0.4-4 ug/mL. A rare, adverse drug reaction to carbamazepine therapy includes Carson-Prince syndrome or toxic epidermal necrolysis. Patients of ancestry with the presence of the HLA-B*15:02 have an increased risk for this carbamazepine-induced, life-threatening reaction. Pharmacogenetic testing for HLA-B*15:02 is recommended prior to treatment for patients at risk of carbamazepine hypersensitivity. This information has been included in the FDA-approved label for carbamazepine (https://www.accessdata.fda.gov/scripts/cder/daf/index.cfm?event=ov erview.process&dtiJbaoQm=449738) and in the guideline from the Clinical Pharmacogenetics Implementation Consortium (https://www.pharmgkb.org/guidelines). [HLA-B*15:02 Genotyping, Carbamazepine Hypersensitivity, uControl test code 2519387.] A combination of therapeutic drug monitoring with HLA-B*15:02 pharmacogenetics genotyping may benefit patients at increased risk of developing carbamazepine-induced adverse events due to rare genotypes other than the HLA-B*15:02 variant allele. See Compliance Statement B: www.[email or web address]/CS 8 Reference range: 4.0 to 12.0 Performed by [facility], [address] [place] [id number] [email or web address], Etienne Ram MD, Lab. Director 9 A REVIEW OF THE LITERATURE SUGGESTS THE FOLLOWING RANGES FOR THE CLASSIFICATION OF 25-OH VITAMIN D STATUS: VITAMIN D STATUS 25-OH VITAMIN D DEFICIENCY <20 NG/ML INSUFFICIENCY 20-30 NG/ML SUFFICIENCY 31 - 100 NG/ML TOXICITY > 100 NG/ML A PEDIATRIC REFERENCE RANGE HAS NOT BEEN ESTABLISHED USING THIS METHOD. 10 Performed using Siemens Fleischmanns immunoassay. Care must be taken when interpreting HbA1c results in patients with a hemoglobin variant or decreased erythrocyte lifespan. Values 5.7 - 6.4% suggest prediabetes. Values >=6.5% are diagnostic for diabetes. REFERENCE: DIABETES CARE 2018: 41(S13-S27). Procedures Date Code Description Status 02/10/2019 23943 Visual Screening Test Completed 02/10/2019 86001 EKG Completed 02/10/2019 39349 Audiometry, Bekesy, Screening Completed Encounters Type Date Location Provider Dx Diagnosis Office Visit 03/20/2019 [facility] Kai Gibbs, I10 Essential ( primary) 2:15p M.D. hypertension E78.2 Mixed hyperlipidemia K21.0 Gastro-esophageal reflux disease with esophagitis K30 Functional dyspepsia L20.9 Atopic dermatitis, unspecified J30.9 Allergic rhinitis, unspecified M10.9 Gout, unspecified G40.909 Epilepsy, unsp, not intractable, without status epilepticus F41.9 Anxiety disorder, unspecified F33.9 Major depressive disorder, recurrent, unspecified E66.01 Morbid (severe) obesity due to excess calories M51.37 Other intervertebral disc degeneration, lumbosacral region M54.17 Radiculopathy, lumbosacral region M25.551 Pain in right hip R11.2 Nausea with vomiting, unspecified R10.13 Epigastric pain 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 M54.5 Low back pain R56.9 Unspecified convulsions K21.9 Gastro-esophageal reflux disease without esophagitis Z68.41 Body mass index (BMI) 40.0-44.9, adult L20.9 Atopic dermatitis, unspecified J30.9 Allergic rhinitis, unspecified E55.9 Vitamin D deficiency, unspecified M10.9 Gout, unspecified I45.10 Unspecified right bundle-branch block E66.01 Morbid (severe) obesity due to excess calories Z00.01 Encounter for general adult medical exam w abnormal findings Plan of Treatment 03/20/2019 - Kai Gibbs M.D.I10 Essential (primary) hypertensionComments: CHECK BP TIW ( PRN)DIET AND FLUID COUNSELING LOW SODIUM DIETWT LOSSF/U LABE78.2 Mixed hyperlipidemiaComments:DIET REVIEWED CONTINUE DIETWT LOSSF/U LAB FBWK21.0 Gastro-esophageal reflux disease with esophagitisComments:AVOID CAFFEINE, ETOH AND SPICY FOODSTUMS OR MYLANTA PRN CALL WITH PROBLEMS OR [id number] Functional dyspepsiaComments:AVOID CAFFEINE, ETOH AND SPICY FOODSTUMS OR MYLANTA PRN CALL WITH PROBLEMS OR QLDTDDVGS94.9 Atopic dermatitis, unspecifiedComments:SKIN CARE INSTRUCTIONS LOTION OR BABY OIL 2-3 APPLICATION PER DAYUSE MOISTURIZING SOAPAVOID PROLONGED WATER EXPOSUREAVOID USING HOT WATER IN QDQZZPI62.9 Allergic rhinitis, unspecifiedComments:INCREASE PO FLUID USE ANTIHISTAMINE PRN SECOND HAND SMOKING WKMAQCEVSM72.9 Gout, unspecifiedComments:EXERCISE/HEAT/MESSAGE TAKE MEDICATIONS DIRECTEDF/U DIRECTEDCALL WITH QUESTIONS OR CONCERNSWEIGHT BEARING FJJEDYTWQO22.909 Epilepsy, unspecified, not intractable, without status epilepticusComments:F/U WITH NEUROLOGY PRNOBSERVE SAFETY QHWSNPI15.9 Anxiety disorder, unspecifiedComments:COUNCELLING AND REASSURANCE RELAXATION TECHNIQUESSTRESSORS IN LIFE AVOID ALL ENERGY/HIGH CAFFEINE JNCUWAT62.9 Major depressive disorder, recurrent, unspecifiedComments: COUNCELLING AND REASSURANCE RELAXATION TECHNIQUESSTRESSORS IN LIFE AVOID ALL ENERGY/HIGH CAFFEINE LXXGDDS41.01 Morbid (severe) obesity due to excess caloriesComments:WT LOSS COUNCELLINGEXERCISEDIET AILXTGHNQQRL08.37 Other intervertebral disc degeneration, lumbosacral regionNew Medication:PT Tiw X 6-8 WKS - pain r hip and lower backComments:EXERCISE/HEAT /MESSAGEAVOID HEAVY LIFTING WT LOSSTYLENOL OR MOTRIN PRNM54.17 Radiculopathy, lumbosacral regionNew Medication:PT Tiw X 6-8 WKS - pain r hip and lower backM25.551 Pain in right hipNew Medication:PT Tiw X 6-8 WKS - pain r hip and lower backReferral: [facility], Orthopedic/Phys TherR11.2 Nausea with vomiting , unspecifiedComments:INCREASE PO FLUID NICKY DIETR10.13 Epigastric painK80.34 Calculus of bile duct with chronic cholangitis without obstrComments: ATTBMSKJ92.9 Vitamin D deficiency, unspecifiedComments:INCREASE EXPOSURE TO SUNREVIEW OF DIETI45.10 Unspecified right bundle-branch blockComments:STABLE AND ASYMPTOMATICF/U WITH CARDIOLOGY PRNN20.0 Calculus of kidneyComments:STABLE F /U WITH UROLOGY PRNG47.00 Insomnia, unspecifiedComments:COUNCELLING AND REASSURANCE RELAXATION TECHNIQUESSTRESSORS IN LIFE AVOID ALL ENERGY/HIGH CAFFEINE IHKKOYX03.2 Chronic pharyngitisComments:INCREASE PO FLUIDTYLENOL OR MOTRIN PRNREST WARM FLUIDS/COLD WHICH EVER MAKES THROAT FEEL BETTERSUCRETS DIRECTED CALL IF SYMPTOMS WORSEN F/U DIRECTED
--- OUTSIDE RECORDS SUMMARY | 2019-04-17 11:26 | XMS REPORT | Continuity of Care Document ---
:1975 External Reference #:[id number] Author Name Carlos Knapp MD Address [facility] [place] [address] Care Team Providers Name Role Phone Kai Gibbs MD Care Team Information Auto Service Representative Unavailable Kai Gibbs MD Primary Care Physician Unavailable Payers Date Identification Numbers Payment Provider Subscriber Policy Number: [id number] Medicare Jonel Law PayID: [id number] [facility] [address] [place] [address] Policy Number: [id number] Medicaid/Medicare Jonel Law Group Name: 2 1 [facility] [employer] PayID: [id number] [address] [place] [address] Problems Active Problems Provider Date Nausea and [...] Result H/L Range Note Laboratory test 03/17/2019 [facility] Surgical SEE RESULT 1 finding Pathology BELOW Laboratory test 03/17/2019 [facility] Clotest SEE RESULT 2 finding BELOW 1 SEE RESULT BELOW Name: JONEL LAW : [address]: Carlos Knapp MD Acct: [id number] Unit: [id number] AGE: 43 Location: [facility] Re03/17/19 SEX: M Status: DEP REF SPEC: [id number] ESE: 03/17/1932 [facility] DR: Carlos Knapp MD REQ: [id number] RECD: 03/17/19 STATUS: ZEINAB HENRIQUEZ DR: Kai [...] CONTINUED ON NEXT PAGE DEPARTMENT OF PATHOLOGY, [address] [place] [address] Juan Skinner M.D. Director [facility] # [id number] RUN DATE: 03/18/19 [facility] LAB LIVE PAGE 2 Patient: JONEL LAW Mariama [id number] (Continued) POST-OPERATIVE DIAGNOSIS (Continued) POST-OPERATIVE DIAGNOSIS EGD: [...] 1121 END OF REPORT DEPARTMENT OF PATHOLOGY, [address] [place] [address] Juan Skinner M.D. Director [facility] # [id number] SEE RESULT BELOW Name: DREWShabanaJONEL : [address]: Carlos Knapp MD Acct: [id number] Unit: [id number] AGE: 43 Location: ENDO Re03/17/19 SEX: M Status: DEP REF SPEC: [id number] ESE: 03/17/[address]: Carlos Knapp MD REQ: [id number] RECD: 03/17/19 STATUS: ZEINAB HENRIQUEZ DR: Kai [...] CONTINUED ON NEXT PAGE DEPARTMENT OF PATHOLOGY, [address] [place] [address] Juan Skinner M.D. Director [facility] # [id number] RUN DATE: 03/18/19 [facility] LAB LIVE PAGE 2 Patient: DREWShabanaJONEL [id number] (Continued) POST-OPERATIVE DIAGNOSIS (Continued) POST-OPERATIVE DIAGNOSIS EGD: [...] 1121 END OF REPORT DEPARTMENT OF PATHOLOGY, [address] [place] [address] Juan Skinner M.D. Director [facility] # [id number] SEE RESULT BELOW Name: JONEL LAW : [address]: Carlos Knapp MD Acct: [id number] Unit: [id number] AGE: 43 Location: ENDO Re03/17/19 SEX: M Status: DEP REF SPEC: [id number] ESE: 07/ SUBM DR: Carlos Knapp MD REQ: [id number] RECD: 03/17/197780 STATUS: ZEINAB HENRIQUEZ DR: Kai Gibbs MD [...] CONTINUED ON NEXT PAGE DEPARTMENT OF PATHOLOGY, [address] [place] [address] Juan Skinner M.D. Director [facility] # [id number] RUN DATE: 03/19/19 [facility] LAB LIVE PAGE 2 Patient: JONEL LAW [id number] (Continued) SPECIMEN COMMENTS (Continued) components of medications [...] 1121 END OF REPORT DEPARTMENT OF PATHOLOGY, [address] [place] [address] Juan Skinner M.D. Director [facility] # [id number] SEE RESULT BELOW Name: JONEL LAW : [address]: Carlos Knapp MD Acct: [id number] Unit: [id number] AGE: 43 Location: ENDO Re03/17/19 SEX: M Status: DEP REF SPEC: [id number] ESE: 03/17/19 [facility] [address]: Carlos Knapp MD REQ: [id number] RECD: 03/17/199426 STATUS: ZEINAB HENRIQUEZ DR: Kai Gibbs MD [...] CONTINUED ON NEXT PAGE DEPARTMENT OF PATHOLOGY, [address] [place] [address] Juan Skinner M.D. Director [facility] # [id number] RUN DATE: 03/19/19 [facility] LAB LIVE PAGE 2 Patient: JONEL LAW [id number] (Continued) SPECIMEN COMMENTS (Continued) components of medications [...] 1121 END OF REPORT DEPARTMENT OF PATHOLOGY, [address] [place] [address] Juan Skinner M.D. Director [facility] # [id number] 2 SEE RESULT BELOW Name: DREWShabanaJONEL : [address]: Carlos Knapp MD Acct: [id number] Unit: [id number] AGE: 43 Location: ENDO Re03/17/19 SEX: M Status: REG REF SPEC: [id number] ESE: 03/17/[address]: Carlos Knapp MD REQ: [id number] RECD: 03/17/19 STATUS: JOSÉ MIGUEL HENRIQUEZ DR: Kai Gibbs MD _ SOURCE: GAS ANTRUM SPDESC: ORDERED: Clotest Procedure Result Reported Site Clotest Final 03/18/19726 ML Clotest Negative * ML - Main Lab . END OF REPORT DEPARTMENT OF PATHOLOGY, [address] [place] [address] Juan Skinner M.D. Director [facility] # [id number] SEE RESULT BELOW Name: JONEL LAW : [address]: Carlos Knapp MD Acct: [id number] Unit: [id number] AGE: 43 Location: ENDO Re03/17/19 SEX: M Status: REG REF SPEC: [id number] ESE: 03/17/19 [facility] [address]: Carlos Knapp MD REQ: [id number] RECD: 03/17/19340 STATUS: COMP OTHR DR: Kai Gibbs MD _ SOURCE: GAS ANTRUM SPDESC: ORDERED: Clotest Procedure Result Reported Site Clotest Final 03/18/19- 726 ML Clotest Negative * ML - Main Lab . END OF REPORT DEPARTMENT OF PATHOLOGY, [address] [place] [address] Juan Skinner M.D. Director [facility] # [id number] Plan of Treatment 02/27/2019 - KANDICE Bryant-CK21.9 Gastro-esophageal reflux disease without esophagitisNew Medication:Omeprazole 40 mg - 1 cap by mouth bid 30 minutes before lanrkB88.10 Upper abdominal pain, livpyafueecG10.2 Nausea with vomiting, unspecified
--- OUTSIDE RECORDS SUMMARY | 2019-04-17 11:26 | XMS REPORT | Continuity of Care Document ---
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 Cintia Copeland MD Primary Care Physician Unavailable Payers Date Identification Numbers Payment Provider Subscriber Effective: 2018 Policy Number: [id number] Medicare [employer] PayID: [id number] [address] [place] [address] Effective: 2019 Policy Number: [id number] Medicaid [employer] Name: 1 1 [address] PayID: [id number] [place] [address] Effective: 2013 Policy Number: [employer] Medicaid [employer] [id number] Expires: 2018 PayID: [id number] [address] [address] [place] [address] Problems Active Problems Provider Date Obesity Lauri Kern MD Onset: 02/11/2015 Sprain of ankle Lauri Kern MD Onset: 02/11/2015 Lumbosacral spondylosis without myelopathy González Pérez M.D. Onset: Family History Date Family Member(s) Observation Comments General None Father Coronary Artery Disease (CAD) Mother Arthritis Siblings 2 Social History Type Date Description Comments Sex Unknown Marital Status Lives With Family Occupation Disabled Tobacco Use Start: Unknown Patient is a current cigarette smoker, smokes every day Tobacco Use Start: Unknown currently smokes 1/2 Pack Daily Smoking Status Reviewed: 04/08/19 currently smokes 1/2 Pack Daily ETOH Use Denies alcohol use Recreational Drug Use Denies Drug Use Tobacco Use Start: Unknown End: Patient is a former smoker Unknown Exercise Type/Frequency Does not exercise Allergies, Adverse Reactions, Alerts Active Allergies Reaction Severity Comments Date Penicillins 07/18/2013 Medications Active Medications SIG Qnty Indications Ordering Date Provider Metoprolol Tartrate 1/2 tablet po 60tabs Unknown daily 100mg Tablets Ondansetron HCL one by mouth every Unknown 4mg 4 hours as needed Tablets for nausea Sucralfate 1 tablet po three Unknown 1gm Tablets times daily Loratadine 1 by mouth every Unknown 10mg Tablets day Allopurinol 1 by mouth every Unknown 100mg day Tablets Fluticasone 2 sprays each Unknown Propionate nostril daily as 50mcg/Act needed Suspension Pantoprazole Sodium 1 tablet po twice Unknown daily 20mg Tablets Zantac 150 Maximum 2 tablet po prn Unknown Strength reflux 150mg Tablets Aptiom take 2 tabs po Unknown qd@hs Vitpat take 1 tab po bid Unknown Medical Marijuana as directed via Unknown physician History Medications Medrol (Shalom) take as QS 845.09 Lauri Kern, 04/05/2015 - 4mg Tablets directed. 04/07/2019 Naproxen take 1 tab by 60tabs 845.09 Lauri Kern, 04/05/2015 - 500mg Tablets mouth twice a 04/07/2019 day as needed for pain with food Naproxen take 1 tab by 30tabs 845.09 Lauri Kern 02/25/2015 - 500mg Tablets mouth twice a 04/07/2019 day as needed for pain with food Tramadol HCL 1-2 po qid prn 45tabs 721.3 González French 07/23/2013 - 50mg Tablets Oniel Pérez 02/10/2015 Lisinopril 1 po qd Unknown - 20mg Tablets 02/10/2015 Claritin 1 tablet daily 30caps Unknown - 10mg Capsules prn 02/10/2015 Hydrochlorothiazide 1 po qd 30caps Unknown - 12.5mg 04/07/2019 Capsules Hydrocodone/Acetaminophen 1 po qid prn 28tabs Unknown - 07/21/2013 10-325mg Tablets Soma tid prn 90tabs Unknown - 350mg Tablets 07/21/2013 Wellbutrin SR 2 po daily 60tabs Unknown - 100mg Tablets ER 07/21/2013 12HR Ibuprofen po tid prn 90tabs Unknown - 800mg Tablets 02/10/2015 Prozac 1 by mouth Unknown - 40mg Capsules every day 04/07/2019 Topiramate 1 by mouth qd Unknown - 100mg Tablets 04/07/2019 Zonisamide 1 tab by mouth Unknown - 100mg Capsules at night 04/07/2019 Metoclopramide HCL 1 by mouth Unknown - 10mg Tablets every 8 hours 04/07/2019 as needed migraine Oxcarbazepine Unknown - 600mg Tablets 04/07/2019 Omeprazole 1 by mouth bid Unknown - 40mg Capsules DR every day 04/07/2019 Vital Signs Date Vital Result Comment 04/08/2019 10:39am Weight 292.00 lb with shoes Heart Rate 70 /min BP Systolic Sitting 120 mmHg Lue BP Diastolic Sitting 80 mmHg Lue BP Systolic Standing 122 mmHg Lue BP Diastolic Standing 84 mmHg Lue 04/05/2015 3:01pm Heart Rate 78 /min BP Systolic Sitting 120 mmHg BP Diastolic Sitting 84 mmHg 02/25/2015 2:33pm Heart Rate 68 /min BP Systolic Sitting 116 mmHg BP Diastolic Sitting 84 mmHg 02/11/2015 2:53pm Height 73 inches 6'1" Weight 381.00 lb Heart Rate 76 /min BP Systolic Sitting 120 mmHg BP Diastolic Sitting 82 mmHg BMI (Body Mass Index) 50.3 kg/m2 07/23/2013 3:09pm Height 73 inches 6'1" Weight 413.00 lb BMI (Body Mass Index) 54.5 kg/m2 Procedures Date Code Description Status 04/08/2019 23790 EKG Tracing & Interpretation Completed Encounters Type Date Location Provider Dx Diagnosis Office Visit 04/05/2015 Sports Medicine Lauri Kern MD 845.09 Sprains & Strains 2:40p Of [facility] Other [place] 278.00 Obesity Unspec 721.3 Spondylosis Lumbar W/O Myelopathy 724.4 Neuritis Or Radiculitis Thoracic Or Lumbosacral Unspec Office Visit 02/25/2015 2:20p Sports Medicine Lauri Kern MD 845.09 Sprains & Of [employer] AT Strains Ankle [place] Other 278.00 Obesity Unspec Office Visit 02/11/2015 2:40p Sports Medicine Lauri Kern MD 845.09 Sprains & Of [employer] AT Strains Ankle [place] Other 278.00 Obesity Unspec Office Visit 07/23/2013 1:00p Neurosurgery González French 721.3 Spondylosis [facility] AT Oniel Pérez Lumbar W/O [place] Myelopathy Plan of Treatment Future Appointment(s):04/10/2019 2:30 pm - Traveling ECHO 1 at [place]04/08/2019 - Jamey Pride DO [id number] Abnormal electrocardiogram [ECG] [EKG]New Orders:Echocardiogram, Scheduled: Follow up:PRNI10 Essential (primary) hypertension
[2019-04-17 11:37] LABS: ABS Lymphocytes 0.8 10^3/ul (1.0-4.8); ABS Monocytes 0.6 10^3/ul (0-0.8); ABS Neutrophils 9.9 10^3/ul (1.5-7.7); Eosinophil % 0.1 %; Hematocrit 46 % (42-52); Hemoglobin 16.4 g/dL (14.0-18.0); Lymphocyte % 6.7 %; Mean Corpuscular HGB Conc 35 g/dL (31-36); Mean Corpuscular Hemoglobin 29 pg (27-31); Mean Corpuscular Volume 83 fL (80-94); Mean Platelet Volume 8.1 fL (7.4-10.4); Platelet Count 201 10^3/uL (150-450); Red Blood Count 5.61 10^6 /uL (4.18-5.48); Red Cell Distribution Width 13 % (10-15); White Blood Count 11.3 10^3/uL (3.5-10.8)
[2019-04-17] MEDS ORDERED: Acetaminophen TAB* 325 MG PO ONE (11:44)
[2019-04-17] MEDS ORDERED: Ondansetron ODT TAB* 4 MG SL ONE (11:45)
[2019-04-17] MEDS ORDERED: Sucralfate TAB* 1 GM PO ONE (11:45)
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
[2019-04-17 11:54] LABS: ALT 12 U/L (7-52); AST 19 U/L (13-39); Albumin 4.4 g/dL (3.2-5.2); Albumin/Globulin Ratio 1.6 (1-3); Alkaline Phosphatase 134 U/L (34-104); Anion Gap 7 mmol/L (2-11); BUN/Creatinine Ratio 8.2 (8-20); Blood Urea Nitrogen 6 mg/dL (6-24); CO2 Carbon Dioxide 24 mmol/L (22-32); Calcium 9.2 mg/dL (8.6-10.3); Chloride 97 mmol/L (101-111); EGFR African American 143.3 (>60); EGFR Non-African American 118.4 (>60); Globulin 2.7 g/dL (2-4); Glucose 129 mg/dL (70-100); Potassium 3.9 mmol/L (3.5-5.0); Sodium 128 mmol/L (135-145); Total Protein 7.1 g/dL (6.4-8.9)
[2019-04-17 12:28] LABS: Alcohol < 10 mg/dL (<10)
[2019-04-17] MEDS ORDERED: NS 0.9% 1000 ML** 1,000 ML IV ONE (13:08)
[2019-04-17] MEDS ORDERED: LaCOSAMide TAB* 150 MG TAB PO ONE (13:32)
[2019-04-17 14:44] VITALS: BP 138/88
[2019-04-17] MEDS ORDERED: Lacosamide TAB* 50 MG TAB PO ONE (15:00)
== END 2019-04-17 14:45 | disposition home or self-care (01) ==
LOC: ED 11:01
DX: R56.9 Unspecified convulsions (principal); I10 Essential (primary) hypertension; Z79.899 Other long term (current) drug therapy; Z88.0 Allergy status to penicillin; Z87.891 Personal history of nicotine dependence
CPT/HCPCS: 36415; 70450; 80053; 80320; 83880; 85025; 96360; 96361; 99283; A9270-GY; G0480

== ENCOUNTER 2019-07-01 11:04 | Emergency (ER) | payer MEDICARE, MEDICAID ==
--- OUTSIDE RECORDS SUMMARY | 2019-07-01 11:18 | XMS REPORT | Continuity of Care Document ---
:1975 External Reference #:[id number] Author Name Fawn Meraz NP Address [address] [place] [address] Care Team Providers Name Role Phone Cintia Copeland MD - Tool Analyst Care Team Information Claims Adjudicator [phone] Problems Active Problems Provider Date Chronic sinusitis Fawn Meraz NP Onset: 05/13/2019 Seizure Fawn Meraz NP Onset: 05/13/2019 Social History Type Date Description Comments Sex Unknown Tobacco Use Start: Unknown End: Used To Smoke Cigarettes But Unknown Quit. ETOH Use Rare Use Of Alcohol Recreational Drug Use Treated For Substance Abuse In The Past Allergies, Adverse Reactions, Alerts Active Allergies Reaction Severity Comments Date Penicillin Hives Moderate 07/30/2018 Medications Active Medications SIG Qnty Indications Ordering Provider Date Hydrocodone one to two tab Unknown Bitartrate/Acetaminoph every 6 hours by en mouth as needed 5-325mg Tablets Zonisamide Unknown 100mg Capsules Vimpat Unknown 200mg Tablets History Medications Prednisone 1 by mouth every 3tabs Rafael Parada, 01/09/2019 - 5mg Tablets day M.D. 05/13/2019 Percocet 1-2 by mouth four 20tabs Rafael Parada, 01/02/2019 - 5-325mg Tablets times a day as M.D. 05/13/2019 needed for pain Azithromycin 1 by mouth every 5tabs Rafael Parada, 11/28/2018 - 500mg Tablets day M.D. 01/09/2019 Immunizations Description No Information Available Vital Signs Date Vital Result Comment 05/13/2019 1:05pm Weight 283.00 lb Height 68 inches 5'8" BMI (Body Mass Index) 43.0 kg/m2 BP Systolic 132 mmHg BP Diastolic 85 mmHg Heart Rate 74 /min O2 % BldC Oximetry 100 % Body Temperature 97.0 F Pain Level 0 01/09/2019 10:16am Weight 303.00 lb Height 68 inches 5'8" BMI (Body Mass Index) 46.1 kg/m2 BP Systolic 146 mmHg BP Diastolic 85 mmHg Heart Rate 76 /min O2 % BldC Oximetry 97 % Body Temperature 96.9 F Pain Level 3 Results Description No Information Available Procedures Date Code Description Status 01/02/2019 67913 Stereotactic Computer-Assisted, Cranial, Extradural Completed 01/02/2019 83217 Nasal/Sinus Endosc.W.Explor. Completed 01/02/2019 68835 Nasal/Sinus Endo Inc Sphenoido Completed 01/02/2019 19037 Nasal/Sinus Endosc.W.Max.Antrost. 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 01/02/2019 J34.3 Hypertrophy of nasal turbinates Jorge A Elias MD 01/02/2019 J34.3 Hypertrophy of nasal turbinates Rafael Parada M.D. Plan of Treatment Future Appointment(s):08/12/2019 11:15 am - Fawn Meraz NP at Main Office Functional Status Description No Information Available Mental Status Description No Information Available Referrals Description No Information Available
--- OUTSIDE RECORDS SUMMARY | 2019-07-01 11:18 | XMS REPORT | Continuity of Care Document ---
:1975 External Reference #:[id number] Author Name Kai Gibbs M.D. Address [address] [place] [address] [address] [facility] [place] [address] Problems Active Problems Provider Date Abdominal pain Onset: 02/27/2019 Essential hypertension Onset: 03/09/2019 Gastroesophageal reflux disease Onset: 02/27/2019 Nausea and vomiting Onset: 02/27/2019 Anxiety Onset: 05/06/2019 Partial epilepsy with impairment of consciousness Onset: 05/08/2019 Secondary hypertension Onset: 05/06/2019 Seizure Onset: 05/05/2019 Social History Type Date Description Comments Sex Unknown ETOH Use Denies alcohol use Tobacco Use Start: Unknown End: Patient is a former smoker Unknown Recreational Drug Use Formerly used Marijuana sporadically Smoking Status Reviewed: 09/10/17 Patient is a former smoker Allergies, Adverse Reactions, Alerts Active Allergies Reaction Severity Comments Date Penicillins 02/10/2019 Penicillin 03/10/2019 Medications Active Medications SIG Qnty Indications Ordering Provider Date Dicyclomine HCL by mouth twice 120caps K21.0 Kai Gibbs, 05/13/2019 10mg a day-GI BekahDJacinda Capsules K30 K58.1 Vimpat 1 tab by mouth twice a G40.909 Kai Gibbs 04/22/2019 100mg Tablets day-Neurology Oniel Godfrey Zonisamide 2 by mouth at bedtime G40.909 Kai Gibbs 04/22/2019 100mg Oniel Godfrey Capsules Pantoprazole Sodium 1 by mouth twice a day 180tabs K21.0 Kai Gibbs Oniel Godfrey 40mg Tablets DR K30 Ondansetron 1 tab by mouth 90tabs R11.2 Sai conniebc ., 02/10/2019 4mg Tablets every 4 hours as M.D. Dispers needed Carafate 1 tab by mouth 270tabs K21.0 [facility] 02/10/2019 1gm Tablets three times a day M.D. before meals K30 Zantac 150 Maximum 1 tabs by mouth 180tabs K21.0 [facility], 2018 Strength twice a day M.D. 150mg Tablets K30 Hydrocodone-Acetaminophen 1 tab by mouth four 60tabs Unknown 5-325mg Tablets times a day as needed-[facility] Tizanidine HCL Take 1 To 3 Tablets M51.37 Unknown 2mg Tablets By Mouth Every Day AT Bedtime as Needed For Spasm Max Daily Dose Of 3 Tablets M54.17 Aptiom Take 2 Tablets By G40.909 Unknown 800mg Tablets Mouth Once Daily AT Night AT Bedtime Fluticasone Propionate 1 sprays in each 48gm J30.9 Sai, Karenhardeep Godfrey, nostril intranasal M.D. 50mcg/Act Suspension puff twice a day Allopurinol 1 by mouth every day 90tabs M10.9 Sai, Karenhardeep Clement., 100mg Tablets M.D. Loratadine 1 tab by mouth every 90tabs J30.9 [facility], 10mg Tablets day as needed M.D. Metoprolol Tartrate 1 by mouth every day 30tabs I10 [facility] Clement., 100mg M.D. Tablets History Medications PT Tiw X 6-8 WKS pain r hip and M25.551 SaiKai nelson, 03/20/2019 - lower back M.D. 05/11/2019 M51.37 M54.17 Azithromycin z debra uad 6tabs SaiKai nelson, 02/17/2019 - 250mg M.D. 03/10/2019 Tablets Omeprazole 1 by mouth bid 60caps K21.0 Kai GibbsJacinda, 02/10/2019 - 40mg Capsules every day M.D. 04/07/2019 [facility] Immunizations Description No Information Available Vital Signs Date Vital Result Comment 05/13/2019 11:07am BP Systolic 138 mmHg BP Diastolic 84 mmHg Height 73 inches 6'1" Weight 283.00 lb BMI (Body Mass Index) 37.3 kg/m2 Heart Rate 82 /min Respiratory Rate 18 /min 04/22/2019 10:53am BP Systolic 128 mmHg BP Diastolic 86 mmHg Height 73 inches 6'1" Weight 290.00 lb BMI (Body Mass Index) 38.3 kg/m2 Heart Rate 68 /min Respiratory Rate 16 /min Results Test Date Facility Test Result H/L Range Note CBC Auto Diff 04/17/2019 [facility] White Blood 11.3 10^3/uL High 3.5 -10.8 Count Red Blood Count 5.61 10^6/uL High 4.18-5.48 Hemoglobin 16.4 g/dL Normal 14.0-18.0 Hematocrit 46 % Normal 42-52 Mean Corpuscular Volume 83 fL Normal 80-94 Mean Corpuscular Hemoglobin 29 pg Normal 27-31 Mean Corpuscular HGB Conc 35 g/dL Normal 31-36 Red Cell Distribution Width 13 % Normal 10-15 Platelet Count 201 10^3/uL Normal 150-450 Mean Platelet Volume 8.1 fL Normal 7.4-10.4 Abs Neutrophils 9.9 10^3/uL High 1.5-7.7 Abs Lymphocytes 0.8 10^3/uL Low 1.0-4.8 Abs Monocytes 0.6 10^3/uL Normal 0-0.8 Abs Eosinophils 0.0 10^3/uL Normal 0-0.6 Abs Basophils 0.0 10^3/uL Normal 0-0.2 Abs Nucleated RBC 0.0 10^3/uL Granulocyte % 87.8 % Lymphocyte % 6.7 % Monocyte % 5.2 % Eosinophil % 0.1 % Basophil % 0.2 % Nucleated Red Blood Cells % 0.0 Laboratory test 04/17/2019 [facility] B-Type Natriuretic 90 pg/mL <= 100 finding Peptide BNP Comp Metabolic 04/17/2019 [facility] Sodium 128 mmol/L Low 135-145 Panel Potassium 3.9 mmol/L Normal 3.5-5.0 Chloride 97 mmol/L Low 101-111 Co2 Carbon Dioxide 24 mmol/L Normal 22-32 Anion Gap 7 mmol/L Normal 2-11 Glucose 129 mg/dL High 70-100 Blood Urea Nitrogen 6 mg/dL Normal 6-24 Creatinine 0.73 mg/dL Normal 0.67-1.17 BUN/Creatinine Ratio 8.2 Normal 8-20 Calcium 9.2 mg/dL Normal 8.6-10.3 Total Protein 7.1 g/dL Normal 6.4-8.9 Albumin 4.4 g/dL Normal 3.2-5.2 Globulin 2.7 g/dL Normal 2-4 Albumin/Globulin Ratio 1.6 Normal 1-3 Total Bilirubin 0.70 mg/dL Normal 0.2-1.0 Alkaline Phosphatase 134 U/L High 34-104 Alt 12 U/L Normal 7-52 Ast 19 U/L Normal 13-39 Egfr Non- 118.4 >60 Egfr 143.3 >60 1 Laboratory test 04/17/2019 [facility] Alcohol < 10 mg/dL Normal <10 finding Laboratory test 03/17/2019 [facility] Surgical SEE RESULT 2 finding Pathology BELOW Laboratory test 03/17/2019 [facility] Clotest SEE RESULT 3 finding BELOW CBC With Diff 02/10/2019 [facility] [place] WBC 9.8 10*3/uL (4.1-11. 113 [facility] [place] 0) (607)- - RBC 5.36 10*6/uL (4.60-6.10) HGB 15.5 g/dL (13.5-18.0) HCT 45.2 % (41.0-53.0) MCV 84.3 fL (80.0-95.0) MCH 29.0 pg (27.0-32.0) MCHC 34.4 g/dL (32.0-36.0) RDW 13.3 % (10.5-14.5) PLT 214 10*3/uL (150-450) MPV 9.5 fL (7.1-10.7) Neut % 78.8 % High (35.0-75.0) Lymph % 14.0 % Low (16.0-52.0) [place] % 5.1 % (0.0-8.0) Eos % 1.6 % (0.0-5.0) Baso % 0.5 % (0.0-4.0) Neut # 7.7 10*3/uL (1.8-7.7) Lymph # 1.4 10*3/uL (1.2-4.8) [place] # 0.5 10*3/uL (0.0-0.8) Eos # 0.2 10*3/uL (0.0-0.5) Baso # 0.0 10*3/uL (0.0-0.2) CMP 02/10/2019 [facility] [place] Sodium 132 mmol/L Low (136-145) 113 [facility] [...] >60 ml/min/1.73m2 (>59) GFR Interpretation <SEE NOTE> 4 Laboratory test finding 02/10/2019 [facility] [place] Amylase 50 U/L (25-115) 113 [place] [place] (607)- - Lipase 162 U/L (65-230) Lipid 02/10/2019 [facility] [place] Cholesterol @ 142 mg/dL (0-200) 113 [place] (607)- - Triglyceride @ 107 mg/dL (30-200) HDL Cholesterol @ 36 mg/dL Low (>40) 5 Chol/HDL Ratio 3.9 RATIO 6 LDL Chol (Calc) 85 mg/dL (<130) 7 Carbamazepine Epox & 02/10/2019 [facility] [place] 10,11 Carbamaze <0.5 ug/mL 8 Total 113 RICKEY OLIVARES Epox (607)- - Carbamazepine Total <2.0 ug/mL Low 9 Laboratory test 02/10/2019 [facility] [place] Magnesium 1.9 mg/dL (1.7-2.4) finding 113 RICKEY OLIVARES (607)- - 25 Hydroxy Vit D @ 23 ng/mL Low (31-100) 10 Esr 5 mm/h (0-15) C Reactive Protein @ 1.5 mg/dL High (0.0-0.5) Rheumatoid Factor @ <15 IU/mL (0-15) Uric Acid 3.4 mg/dL Low (3.5-7.2) Hemoglobin A1c 02/10/2019 [facility] [place] Hemoglobin A1c @ 5.4 % (4.0-6.0) 11 113 RICKEY OLIVARES (607)- - Est Average Glucose 108 mg/dL Laboratory 02/10/2019 [facility] [place] TSH,Ultrasensitive @ 1.920 (0.360- 4.170) test finding 113 RICKEY OLIVARES mIU/L (607)- - 1 Because ethnic data is not always readily available, this report includes an eGFR for both -Americans and non- Americans. The National Kidney Disease Education Program (NKDEP) does not endorse the use of the MDRD equation for patients that are not between the ages of 18 and 70, are , have extremes of body size, muscle mass, or nutritional status, or are non- or non-. According to the National Kidney Foundation, irrespective of diagnosis, the stage of the disease is based on the level of kidney function: Stage Description GFR(mL/min/1.73 m(2)) 1 Kidney damage with normal or decreased GFR 90 2 Kidney damage with mild decrease in GFR 60-89 3 Moderate decrease in GFR 30-59 4 Severe decrease in GFR 15-29 5 Kidney failure <15 (or dialysis) 2 SEE RESULT BELOW Name: JONEL LAW : [address]: Carlos Knapp MD Acct: [id number] Unit: [id number] AGE: 43 Location: ENDO Re03/17/19 SEX: M Status: DEP REF SPEC: [id number] ESE: 03/17/19 [facility] DR: Carlos Knapp MD REQ: [id number] RECD: 03/17/19 STATUS: ZEINAB HENRIQUEZ DR: Kai [...] CONTINUED ON NEXT PAGE DEPARTMENT OF PATHOLOGY, [address] [place] [address] Juan Skinner M.D. Director [facility] # [id number] RUN DATE: 03/19/19 [facility] LAB LIVE PAGE 2 Patient: JONEL LAW [id number] (Continued) SPECIMEN COMMENTS (Continued) components of medications [...] 1121 END OF REPORT DEPARTMENT OF PATHOLOGY, [address] [place] [address] Juan Skinner M.D. Director [facility] # [id number] 3 SEE RESULT BELOW Name: JONEL LAW : [address]: Carlos Knapp MD Acct: [id number] Unit: [id number] AGE: 43 Location: ENDO Re03/17/19 SEX: M Status: REG REF SPEC: [id number] ESE: 03/17/19 [facility] [address]: Carlos Knapp MD REQ: [id number] RECD: 03/17/19 STATUS: JOSÉ MIGUEL HENRIQUEZ DR: Kai Gibbs MD _ S[facility]: Clotest Procedure Result Reported Site Clotest Final 03/18/19726 ML Clotest Negative * ML - Main Lab . END OF REPORT DEPARTMENT OF PATHOLOGY, [address] [place] [id number] Juan Skinner M.D. Director [facility] # [id number] 4 NORMAL KIDNEY FUNCTION OR MILD DISEASE - GFR >OR= 60 CHRONIC KIDNEY DISEASE - GFR 15 - 59 RENAL FAILURE - GFR <15 Est. GFR calculation based on the MDRD study equation, which assumes a steady state for creatinine. Est. GFR should not be used for medication dosing. 5 PER NCEP ATP III GUIDELINES: RESULTS LOWER THAN 40 MG/DL ARE SUGGESTIVE OF INCREASED RISK FOR CORONARY ARTERY DISEASE. RESULTS > OR = TO 60 MG/DL ARE CONSIDERED A NEGATIVE RISK FACTOR. 6 INTERPRETATION OF CHOL-HDL RATIO CHD RISK FEMALE MALE VERY HIGH >8.3 >14.3 HIGH 5.6- 8.3 6.7- 14.3 AVERAGE 3.7- 5.6 4.0- 6.7 BELOW AVERAGE 2.5- 3.7 2.7- 4.0 PROTECTED <2.5 <2.7 7 PER NCEP ATP III GUIDELINES: OPTIMAL < 100 NEAR OPTIMAL 100 - 129 BORDERLINE HIGH 130 - 159 HIGH 160 - 189 VERY HIGH > 189 8 INTERPRETIVE INFORMATION: Carbamazepine-10, 11-Epoxide Carbamazepine-10, 11 Epoxide [...] in the FDA-approved label for carbamazepine (https://www.accessdata.fda.gov/scripts/cder/daf/index.cfm?event=ov erview.process&shcQrsmDi=668807) and in the guideline from the Clinical Pharmacogenetics Implementation Consortium (https://www.pharmgkb.org/guidelines). [HLA-B*15:02 Genotyping, Carbamazepine Hypersensitivity, [employer] test code 0930807.] A combination of therapeutic drug monitoring with HLA-B*15:02 pharmacogenetics genotyping may benefit patients at increased risk of developing carbamazepine-induced adverse events due to rare genotypes other than the HLA-B*15:02 variant allele. See Compliance Statement B: www.[email or web address]/CS 9 Reference range: 4.0 to 12.0 Performed by [facility], [address] [place] [id number] www.[employer], Etienne Ram MD, Lab. Director 10 A REVIEW OF THE LITERATURE SUGGESTS THE FOLLOWING RANGES FOR THE CLASSIFICATION OF 25-OH VITAMIN D STATUS: VITAMIN D STATUS 25-OH VITAMIN D DEFICIENCY <20 NG/ML INSUFFICIENCY 20-30 NG/ML SUFFICIENCY 31 - 100 NG/ML TOXICITY > 100 NG/ML A PEDIATRIC REFERENCE RANGE HAS NOT BEEN ESTABLISHED USING THIS METHOD. 11 Performed using Siemens Houma immunoassay. Care must be taken when interpreting HbA1c results in patients with a hemoglobin variant or decreased erythrocyte lifespan. Values 5.7 - 6.4% suggest prediabetes. Values >=6.5% are diagnostic for diabetes. REFERENCE: DIABETES CARE 2018: 41(S13-S27). Procedures Date Code Description Status 02/10/2019 96814 Visual Screening Test Completed 02/10/2019 24843 EKG Completed 02/10/2019 31540 Audiometry, Bekesy, Screening Completed Medical Devices Description No Information Available Encounters Type Date Location Provider Dx Diagnosis Office Visit 05/13/2019 [facility] Kai Gibbs, I10 Essential ( primary) 11:00a M.D. hypertension E78.2 Mixed hyperlipidemia K21.0 Gastro-esophageal [...] kidney G47.00 Insomnia, unspecified J31.2 Chronic pharyngitis K58.1 Irritable bowel syndrome with constipation Office Visit 04/22/2019 10:45a [facility] [facility] Kai Gibbs I10 Essential ( primary) Oniel Godfrey hypertension E78.2 Mixed hyperlipidemia K21.0 Gastro-esophageal reflux [...] Insomnia, unspecified J31.2 Chronic pharyngitis Office Visit 03/20/2019 2:15p [facility] Kai Gibbs I10 Essential ( primary) Oniel Godfrey hypertension E78.2 Mixed hyperlipidemia K21.0 Gastro-esophageal reflux [...] J31.2 Chronic pharyngitis Office Visit 02/17/2019 10:30a [facility] Arash Duncan, R11.2 Nausea with N.P. [...] (BMI) 40.0-44.9, adult Office Visit 02/10/2019 1:00p [facility] Arash Duncan, R11.2 Nausea with N.P. [...] general adult medical exam w abnormal findings Assessments Date Code Description Provider 05/13/2019 I10 Essential (primary) hypertension Kai Gibbs M.D. 05/13/2019 E78.2 Mixed hyperlipidemia Kai Gibbs M.D. 05/13/2019 K21.0 Gastro-esophageal reflux disease with Kai Gibbs M.D. esophagitis 05/13/2019 K30 Functional dyspepsia Kai Gibbs M.D. 05/13/2019 L20.9 Atopic dermatitis, unspecified Kai Gibbs M.D. 05/13/2019 J30.9 Allergic rhinitis, unspecified Kai Gibbs M.D. 05/13/2019 M10.9 Gout, unspecified Kai Gibbs M.D. 05/13/2019 G40.909 Epilepsy, unspecified, not intractable, Kai Gibbs M.D. without status epile 05/13/2019 F41.9 Anxiety disorder, unspecified Kai Gibbs M.D. 05/13/2019 F33.9 Major depressive disorder, recurrent, Kai Gibbs M.D. unspecified 05/13/2019 E66.01 Morbid (severe) obesity due to excess Kai Gibbs M.D. calories 05/13/2019 M51.37 Other intervertebral disc degeneration, Kai Gibbs M.D. lumbosacral region 05/13/2019 M54.17 Radiculopathy, lumbosacral region Kai Gibbs M.D. 05/13/2019 M25.551 Pain in right hip Kai Gibbs M.D. 05/13/2019 R11.2 Nausea with vomiting, unspecified Kai Gibbs M.D. 05/13/2019 R10.13 Epigastric pain Kai Gibbs M.D. 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 05/13/2019 I45.10 Unspecified right bundle-branch block Kai Gibbs M.D. 05/13/2019 N20.0 Calculus of kidney Kai Gibbs M.D. 05/13/2019 G47.00 Insomnia, unspecified Kai Gibbs M.D. 05/13/2019 J31.2 Chronic pharyngitis Kai Gibbs M.D. 05/13/2019 K58.1 Irritable bowel syndrome with constipation Kai Gibbs M.D. 04/22/2019 I10 Essential (primary) hypertension Kai Gibbs M.D. 04/22/2019 E78.2 Mixed hyperlipidemia Kai Gibbs M.D. 04/22/2019 K21.0 Gastro-esophageal reflux disease with Kai Gibbs M.D. esophagitis 04/22/2019 K30 Functional dyspepsia Kai Gibbs M.D. 04/22/2019 L20.9 Atopic dermatitis, unspecified Kai Gibbs M.D. 04/22/2019 J30.9 Allergic rhinitis, unspecified Kai Gibbs M.D. 04/22/2019 M10.9 Gout, unspecified Kai Gibbs M.D. 04/22/2019 G40.909 Epilepsy, unspecified, not intractable, Kai Gibbs M.D. without status epile 04/22/2019 F41.9 Anxiety disorder, unspecified Kai Gibbs M.D. 04/22/2019 F33.9 Major depressive disorder, recurrent, Kai Gibbs M.D. unspecified 04/22/2019 E66.01 Morbid (severe) obesity due to excess Kai Gibbs M.D. calories 04/22/2019 M51.37 Other intervertebral disc degeneration, Kai Gibbs M.D. lumbosacral region 04/22/2019 M54.17 Radiculopathy, lumbosacral region Kai Gibbs M.D. 04/22/2019 M25.551 Pain in right hip Kai Gibbs M.D. 04/22/2019 R11.2 Nausea with vomiting, unspecified Kai Gibbs M.D. 04/22/2019 R10.13 Epigastric pain Kai Gibbs M.D. 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 04/22/2019 I45.10 Unspecified right bundle-branch block Kai Gibbs M.D. 04/22/2019 N20.0 Calculus of kidney Kai Gibbs M.D. 04/22/2019 G47.00 Insomnia, unspecified Kai Gibbs M.D. 04/22/2019 J31.2 Chronic pharyngitis Kai Gibbs M.D. 03/20/2019 I10 Essential (primary) hypertension Kai Gibbs M.D. 03/20/2019 E78.2 Mixed hyperlipidemia Kai Gibbs M.D. 03/20/2019 K21.0 Gastro-esophageal reflux disease with Kai Gibbs M.D. esophagitis 03/20/2019 K30 Functional dyspepsia Kai Gibbs M.D. 03/20/2019 L20.9 Atopic dermatitis, unspecified Kai Gibbs M.D. 03/20/2019 J30.9 Allergic rhinitis, unspecified Kai Gibbs M.D. 03/20/2019 M10.9 Gout, unspecified Kai Gibbs M.D. 03/20/2019 G40.909 Epilepsy, unspecified, not intractable, Kai Gibbs M.D. without status epile 03/20/2019 F41.9 Anxiety disorder, unspecified Kai Gibbs M.D. 03/20/2019 F33.9 Major depressive disorder, recurrent, Kai Gibbs M.D. unspecified 03/20/2019 E66.01 Morbid (severe) obesity due to excess Kai Gibbs M.D. calories 03/20/2019 M51.37 Other intervertebral disc degeneration, Kai Gibbs M.D. lumbosacral region 03/20/2019 M54.17 Radiculopathy, lumbosacral region Kai Gibbs M.D. 03/20/2019 M25.551 Pain in right hip Kai Gibbs M.D. 03/20/2019 R11.2 Nausea with vomiting, unspecified Kai Gibbs M.D. 03/20/2019 R10.13 Epigastric pain Kai Gibbs M.D. 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 03/20/2019 I45.10 Unspecified right bundle-branch block Kai Gibbs M.D. 03/20/2019 N20.0 Calculus of kidney Kai Gibbs M.D. 03/20/2019 G47.00 Insomnia, unspecified Kai Gibbs M.D. 03/20/2019 J31.2 Chronic pharyngitis Kai Gibbs M.D. 03/17/2019 R11.2 Nausea with vomiting, unspecified Arash Duncan, N.P. 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 cholangitis without obstr 03/17/2019 M54.5 Low back pain Arash Duncan, N.P. 03/17/2019 R56.9 Unspecified convulsions Arash Duncan, N.P. 03/17/2019 K21.9 Gastro-esophageal reflux disease without Arash Duncan, N.P. esophagitis 03/17/2019 L20.9 Atopic dermatitis, unspecified Arash Duncan, N.P. 03/17/2019 J30.9 Allergic rhinitis, unspecified Arash Duncan, N.P. 03/17/2019 E55.9 Vitamin D deficiency, unspecified Arash Duncan, N.P. 03/17/2019 M10.9 Gout, unspecified Arash Duncan, N.P. 03/17/2019 I45.10 Unspecified right bundle-branch block Arash Duncan, N.P. 03/17/2019 E66.01 Morbid (severe) obesity due to excess Arash Duncan, N.P. calories 03/17/2019 J02.9 Acute pharyngitis, unspecified Arash Duncan, N.P. 03/17/2019 Z68.41 Body mass index (BMI) 40.0-44.9, adult Arash Duncan, N.P. 02/17/2019 R11.2 Nausea with vomiting, unspecified Arash Duncan, N.P. 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 02/17/2019 R56.9 Unspecified convulsions Arash Duncan, N.P. 02/17/2019 K21.9 Gastro-esophageal reflux disease without Arash Duncan, N.P. esophagitis 02/17/2019 L20.9 Atopic dermatitis, unspecified Arash Duncan, N.P. 02/17/2019 J30.9 Allergic rhinitis, unspecified Arash Duncan, N.P. 02/17/2019 E55.9 Vitamin D deficiency, unspecified Arash Duncan, N.P. 02/17/2019 M10.9 Gout, unspecified Arash Duncan, N.P. 02/17/2019 I45.10 Unspecified right bundle-branch block Arash Duncan, N.P. 02/17/2019 E66.01 Morbid (severe) obesity due to excess Arash Duncan, N.P. calories 02/17/2019 J02.9 Acute pharyngitis, unspecified Arash Duncan, N.P. 02/17/2019 Z68.41 Body mass index (BMI) 40.0-44.9, adult Arash Duncan, N.P. 02/10/2019 Z00.01 Encounter for general adult medical Kai Gibbs M.D. examination with abnormal findings 02/10/2019 R11.2 Nausea with vomiting, unspecified Arash Duncan, N.P. 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 02/10/2019 R56.9 Unspecified convulsions Arash Duncan, N.P. 02/10/2019 K21.9 Gastro-esophageal reflux disease without Arash Duncan, N.P. esophagitis 02/10/2019 Z68.41 Body mass index (BMI) 40.0-44.9, adult Arash Duncan, N.P. 02/10/2019 L20.9 Atopic dermatitis, unspecified Arash Duncan, N.P. 02/10/2019 J30.9 Allergic rhinitis, unspecified Arash Duncan, N.P. 02/10/2019 E55.9 Vitamin D deficiency, unspecified Arash Duncan, N.P. 02/10/2019 M10.9 Gout, unspecified Arash Duncan, N.P. 02/10/2019 I45.10 Unspecified right bundle-branch block Arash Duncan, N.P. 02/10/2019 E66.01 Morbid (severe) obesity due to excess Arash Duncan, N.P. calories 02/10/2019 Z00.01 Encounter for general adult medical Arash Duncan N.PJacinda examination with abnorma Plan of Treatment Future Appointment(s):05/29/2019 10:45 am - Kai Gibbs M.D. at [facility]05/13/2019 - Kai Gibbs M.D.I10 Essential (primary) hypertensionComments:CHECK BP TIW ( PRN)DIET AND FLUID COUNSELING LOW SODIUM DIETWT LOSSF/U LABFollow up:1 zozljyV71.2 Mixed hyperlipidemiaComments:DIET REVIEWED CONTINUE DIETWT LOSSF/U LAB FBWK21.0 Gastro-esophageal reflux disease with esophagitisNew Medication:Dicyclomine HCL 10 mg - by mouth twice a day- GIComments:AVOID CAFFEINE, ETOH AND SPICY FOODSTUMS OR MYLANTA PRN CALL WITH PROBLEMS OR [id number] Functional dyspepsiaNew Medication:Dicyclomine HCL 10 mg - by mouth twice a day-GIComments:AVOID CAFFEINE, ETOH AND SPICY FOODSTUMS OR MYLANTA PRN CALL WITH PROBLEMS OR JNZVSEKJL80.9 Atopic dermatitis, unspecifiedComments:SKIN CARE INSTRUCTIONS LOTION OR BABY OIL 2-3 APPLICATION PER DAYUSE MOISTURIZING SOAPAVOID PROLONGED WATER EXPOSUREAVOID USING HOT WATER IN APBRJLR68.9 Allergic rhinitis, unspecifiedComments:INCREASE PO FLUID USE ANTIHISTAMINE PRN SECOND HAND SMOKING TDXUTTKNEF20.9 Gout, unspecifiedComments: EXERCISE/HEAT/MESSAGE TAKE MEDICATIONS DIRECTEDF/U DIRECTEDCALL WITH QUESTIONS OR CONCERNSWEIGHT BEARING VCGIWTIMRC98.909 Epilepsy, unspecified, not intractable, without status epileComments:F/U WITH NEUROLOGY PRNOBSERVE SAFETY STABLEReferral:No Doctor WscmqdseB40.9 Anxiety disorder, unspecifiedComments:COUNCELLING AND REASSURANCE RELAXATION TECHNIQUESSTRESSORS IN LIFE AVOID ALL ENERGY/HIGH CAFFEINE UUKLKVV88.9 Major depressive disorder, recurrent, unspecifiedComments:COUNCELLING AND REASSURANCE RELAXATION TECHNIQUESSTRESSORS IN LIFE AVOID ALL ENERGY/HIGH CAFFEINE QEYPJXS93.01 Morbid ( severe) obesity due to excess caloriesComments:WT LOSS COUNCELLINGEXERCISEDIET WCRJDDPFLRRT83.37 Other intervertebral disc degeneration, lumbosacral regionComments:EXERCISE/HEAT /MESSAGEAVOID HEAVY LIFTING WT LOSSTYLENOL OR MOTRIN PRNM54.17 Radiculopathy, lumbosacral regionComments:EXERCISE/HEAT / MESSAGE AVOID HEAVY LIFTING WT LOSS TYLENOL OR MOTRIN PRN DUR MQORWYFZ65.551 Pain in right hipComments:EXERCISE/HEAT/MESSAGETYLENOL OR MOTRIN PRNAVOID HEAVY LIFTINGWT LOSS DUR OBBWSQMQ53.2 Nausea with vomiting, unspecifiedComments: INCREASE PO FLUID NICKY DIETR10.13 Epigastric painComments:TYLENOL OR MOTRIN PRNINCREASE PO FLUIDLAXATIVE PRN F/U DIRECTEDF/U PWWEMCTVK26.34 Calculus of bile duct with chronic cholangitis without obstrComments:DHHZVCWH10.9 Vitamin D deficiency, unspecifiedComments:INCREASE EXPOSURE TO SUNREVIEW OF DIETI45.10 Unspecified right bundle-branch blockComments:STABLE AND ASYMPTOMATICF/U WITH CARDIOLOGY PRNN20.0 Calculus of kidneyComments:STABLE F/U WITH UROLOGY PRNG47.00 Insomnia, unspecifiedComments:COUNCELLING AND REASSURANCE RELAXATION TECHNIQUESSTRESSORS IN LIFE AVOID ALL ENERGY/HIGH CAFFEINE GOCHUZT05.2 Chronic pharyngitisComments:INCREASE PO FLUIDTYLENOL OR MOTRIN PRNREST WARM FLUIDS/COLD WHICH EVER MAKES THROAT FEEL BETTERSUCRETS DIRECTED CALL IF SYMPTOMS WORSEN F/U IBVLVOSNY76.1 Irritable bowel syndrome with constipationNew Medication:Dicyclomine HCL 10 mg - by mouth twice a day- GIComments:MOM OR MIRALAX PRNHIGH FIBER DIETINCREASE PO FLUID TYLENOL OR MOTRIN PRN Functional Status Description No Information Available Mental Status Description No Information Available Referrals Refer to Reason for Referral Status Appt Date Created [facility] Neurology PT REQUESTING [facility]. WHEAT [facility] [address] [facility] 4TH Floor [facility] [address] [phone] [facility] Closed [address] [place] [address] [phone] Carlos Knapp MD SUSPICION FOR 'PUD' & CHOLECYSTITIS PT ASKING Closed FOR SOONEST APPT POSSIBLE PLEASE AND THANK YOU. [address] [facility] [address] [phone] Yaniv Prajapati MD POSSIBLE RBBB, PT IS REQUESTING TO SEE EITHER DR Closed 03/12/[address] BRANDT. PLEASE CONSIDER WHEN SCHEDULING APPT. THANK YOU. [address] [place] [address] [phone]
--- OUTSIDE RECORDS SUMMARY | 2019-07-01 11:18 | XMS REPORT | Continuity of Care Document ---
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 ETOH Use Rare Use Of Alcohol Recreational Drug Use Treated For Substance Abuse In The Past Allergies, Adverse Reactions, Alerts Active Allergies Reaction Severity Comments Date Penicillin Hives Moderate 07/30/2018 Medications Active Medications SIG Qnty Indications Ordering Date Provider Prednisone 1 by mouth every 3tabs Rafael Parada, 01/09/2019 5mg Tablets day M.D. Percocet 1-2 by mouth four 20tabs Rafael Parada, 01/02/2019 5-325mg Tablets times a day as [...] Available Procedures Date Code Description Status 01/02/2019 88251 Stereotactic Computer-Assisted, Cranial, Extradural Completed 01/02/2019 93745 Nasal/Sinus Endosc.W.Explor. Completed 01/02/2019 91805 Nasal/Sinus Endo Inc Sphenoido Completed 01/02/2019 79725 Nasal/Sinus Endosc.W.Max.Antrost. Completed 01/02/2019 68510 Nasal/Sinus Endosc,Surg.W.Eth/Par Completed 01/02/2019 75735 Submucous Resect.Turb.Par Or Comp Completed 01/02/2019 55597 Anesthesia, Nose & Accessory Sinus Surgery Not Otherwise Completed Spec Medical Devices Description No Information Available Encounters Description No Information Available Assessments Date Code Description Provider 01/09/2019 J32.9 Chronic sinusitis, unspecified Fawn Meraz NP 01/02/2019 J32.9 Chronic sinusitis, unspecified Jorge A Elias MD 01/02/2019 J32.9 Chronic sinusitis, unspecified Rafael Parada M.D. 01/02/2019 J34.3 Hypertrophy of nasal turbinates Jorge A Elias MD 01/02/2019 J34.3 Hypertrophy of nasal turbinates Rafael Parada M.D. Plan of Treatment No Information Available Functional Status Description No Information Available Mental Status Description No Information Available Referrals Description No Information Available
--- OUTSIDE RECORDS SUMMARY | 2019-07-01 11:18 | XMS REPORT | Continuity of Care Document ---
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 [phone] Problems Active Problems Provider Date Gastroesophageal reflux disease Argentina Castillo PA-C Onset: 02/27/2019 Abdominal pain Argentina Castillo PA-C Onset: 02/27/2019 Nausea and vomiting Argentina Castillo PA-C Onset: 02/27/2019 Essential hypertension Argentina Castillo PA-C Onset: 03/09/2019 Social History Type Date Description Comments Sex Male Tobacco Use Start: Unknown End: Former Unknown Tobacco Use Start: Unknown End: Former Unknown Tobacco Use Start: Unknown End: No Unknown Tobacco Use Start: Unknown End: No Unknown ETOH Use None Tobacco Use Start: Unknown End: Patient is a former smoker Unknown Recreational Drug Use Current Drug User marijuana Recreational Drug Use Medical marijuana only substance i use Smoking Status Reviewed: 04/30/19 Patient is a former smoker Allergies, Adverse Reactions, Alerts Active Allergies Reaction Severity Comments Date Penicillin 02/27/2019 Medications Active Medications SIG Qnty Indications Ordering Date Provider Dicyclomine HCL 1 by mouth twice 60caps Carlos Celis 05/06/2019 10mg a day MD Aria Capsules Hyoscyamine Sulfate ER 1 by mouth every 30tabs Carlos Celis 04/30/2019 day MD Aria 0.375mg Tablets ER 12HR Miralax 1 scoop daily 1units Carlos Celis 04/03/2019 3350NF Powder MD Aria Pantoprazole Sodium 1 by mouth bid 60tabs Carlos Celis 04/03/2019 40mg MD Aria Tablets Vimpat Take 1 Tablet By Unknown 50mg Tablets Mouth Twice Daily . DO Not Exceed 2 Per 24 Hours Sucralfate Austin Duncan PA 1gm Tablets Ranitidine [...] Fluticasone Propionate Rafael Parada MD 50mcg/Act Suspension Zonisamide Unknown 100mg Capsules Hydrocodone-Acetaminoph Take 1 Tablet By Unknown en Mouth Twice 5-325mg Tablets Daily as Needed For Pain . DO Not Exceed 2 Per 24 Hours History Medications Omeprazole 1 cap by mouth 60caps K21.9 Mychal Chang DO 02/27/2019 - 40mg bid 30 minutes 04/30/2019 Capsules before meals Immunizations Description No Information Available Vital Signs Date Vital Result Comment 04/30/2019 2:09pm Height 73 inches 6'1" Weight 288.00 lb BP Systolic 137 mmHg BP Diastolic 92 mmHg Heart Rate 76 /min BMI (Body Mass Index) 38.0 kg/m2 02/27/2019 1:43pm Height 73 inches 6'1" Weight 295.00 lb BP Systolic 154 mmHg BP Diastolic 95 mmHg Heart Rate 80 /min BMI (Body Mass Index) 38.9 kg/m2 Results Test Date Facility Test Result H/L Range Note Laboratory test 05/26/2019 [facility] Surgical SEE RESULT 1 finding Pathology BELOW Laboratory test 03/17/2019 [facility] Surgical SEE RESULT 2 finding Pathology BELOW Laboratory test 03/17/2019 [facility] Clotest SEE RESULT 3 finding BELOW 1 SEE RESULT BELOW Name: JONEL LAW : [address]: Carlos Knapp MD Acct: [id number] Unit: [id number] AGE: 43 Location: ENDO Re05/26/19 SEX: M Status: DEP REF SPEC: [id number] ESE: 05/26/19-[address] [facility] [address]: Carlos Knapp MD REQ: [id number] RECD: 05/26/19 STATUS: ZEINAB HENRIQUEZ DR: Kai Gibbs MD _ ORDERED: LEVEL 4 FINAL DIAGNOSIS Small bowel, duodenum, biopsy: -- Small bowel mucosa with normal villous architecture and no significant pathologic abnormality. CLINICAL HISTORY Abnormal duodenum biopsy POST-OPERATIVE DIAGNOSIS EGD: esophagus ??? normal; gastric ??? normal; duodenum ??? normal biopsy (4) GROSS DESCRIPTION The specimen is received in formalin labeled, Duodenal Biopsies, and consists of a 0.8 x 0.5 by up to 0.2 cm aggregate of neely-pink irregular soft tissue fragments which is submitted entirely in one cassette. Signed by and Reported on: Juan Skinner MD 1223 END OF REPORT DEPARTMENT OF PATHOLOGY, [address] [place] [address] Juan Skinner M.D. Director GARY # [id number] SEE RESULT BELOW Name: JONEL LAW : [address]: Carlos Knapp MD Acct: [id number] Unit: [id number] AGE: 43 Location: ENDO Re05/26/19 SEX: M Status: DEP REF SPEC: [id number] ESE: 05/26/19-[address] [facility] [address]: Carlos Knapp MD REQ: [id number] RECD: 05/26/19 STATUS: ZEINAB HENRIQUEZ DR: Kai Gibbs MD _ ORDERED: LEVEL 4 FINAL DIAGNOSIS Small bowel, duodenum, biopsy: -- Small bowel mucosa with normal villous architecture and no significant pathologic abnormality. CLINICAL HISTORY Abnormal duodenum biopsy POST-OPERATIVE DIAGNOSIS EGD: esophagus ??? normal; gastric ??? normal; duodenum ??? normal biopsy (4) GROSS DESCRIPTION The specimen is received in formalin labeled, Duodenal Biopsies, and consists of a 0.8 x 0.5 by up to 0.2 cm aggregate of neely-pink irregular soft tissue fragments which is submitted entirely in one cassette. Signed by and Reported on: Juan Skinner MD 1223 END OF REPORT DEPARTMENT OF PATHOLOGY, [address] [place] [address] Juan Skinner M.D. Director [facility] # [id number] 2 SEE RESULT BELOW Name: JONEL LAW : [address]: Carlos Knapp MD Acct: [id number] Unit: [id number] AGE: 43 Location: ENDO Re03/17/19 SEX: M Status: DEP REF SPEC: [id number] ESE: 03/17/[address] [facility] [address]: Carlos Knapp MD REQ: [id number] RECD: 03/17/19244 STATUS: ZEINAB HENRIQUEZ DR: Kai Gibbs MD [...] CONTINUED ON NEXT PAGE DEPARTMENT OF PATHOLOGY, [address] [place] [address] Juan Skinner M.D. Director [facility] # [id number] RUN DATE: 03/18/19 [facility] LAB LIVE PAGE 2 Patient: JONEL LAW [id number] (Continued) POST-OPERATIVE DIAGNOSIS (Continued) POST-OPERATIVE DIAGNOSIS EGD: [...] 1121 END OF REPORT DEPARTMENT OF PATHOLOGY, [address] [place] [address] Juan Skinner M.D. Director [facility] # [id number] SEE RESULT BELOW Name: JONEL LAW : [address]: Carlos Knapp MD Acct: [id number] Unit: [id number] AGE: 43 Location: ENDO Re03/17/19 SEX: M Status: DEP REF SPEC: [id number] ESE: 03/17/[address] [facility] [address]: Carlos Knapp MD REQ: [id number] RECD: 03/17/19 STATUS: ZEINAB HENRIQUEZ DR: Kai [...] CONTINUED ON NEXT PAGE DEPARTMENT OF PATHOLOGY, [address] [place] [address] Juan Skinner M.D. Director GARY # [id number] RUN DATE: 03/18/19 [facility] LAB LIVE PAGE 2 Patient: JONEL LAW [id number] (Continued) POST-OPERATIVE DIAGNOSIS (Continued) POST-OPERATIVE DIAGNOSIS EGD: [...] 1121 END OF REPORT DEPARTMENT OF PATHOLOGY, [address] [place] [address] Juan Skinner M.D. Director GARY # [id number] SEE RESULT BELOW Name: JONEL LAW : [address]: Carlos Knapp MD Acct: [id number] Unit: [id number] AGE: 43 Location: ENDO Re03/17/19 SEX: M Status: DEP REF SPEC: [id number] ESE: 03/17/[address] [facility] [address]: Carlos Knapp MD REQ: [id number] RECD: 03/17/198614 STATUS: ZEINAB HENRIQUEZ DR: Kai Gibbs MD [...] CONTINUED ON NEXT PAGE DEPARTMENT OF PATHOLOGY, [address] [place] [address] Juan Skinner M.D. Director [facility] # [id number] RUN DATE: 03/19/19 [facility] LAB LIVE PAGE 2 Patient: JONEL LAW [id number] (Continued) SPECIMEN COMMENTS (Continued) components of medications [...] 1121 END OF REPORT DEPARTMENT OF PATHOLOGY, [address] [place] [address] Juan Skinner M.D. Director [facility] # [id number] SEE RESULT BELOW Name: JONEL LAW : [address]: Carlos Knapp MD Acct: [id number] Unit: [id number] AGE: 43 Location: ENDO Re03/17/19 SEX: M Status: DEP REF SPEC: [id number] ESE: 03/17/[address] [facility] [address]: Carlos Knapp MD REQ: [id number] RECD: 03/17/19 STATUS: ZEINAB HENRIQUEZ DR: Kai [...] CONTINUED ON NEXT PAGE DEPARTMENT OF PATHOLOGY, [address] [place] [address] Juan Skinner M.D. Director [facility] # [id number] RUN DATE: 03/19/19 [facility] LAB LIVE PAGE 2 Patient: JONEL LAW [id number] (Continued) SPECIMEN COMMENTS (Continued) components of medications [...] 1121 END OF REPORT DEPARTMENT OF PATHOLOGY, [address] [place] [address] Juan Skinner M.D. Director [facility] # [id number] SEE RESULT BELOW Name: JONEL LAW : [address]: Carlos Knapp MD Acct: [id number] Unit: [id number] AGE: 43 Location: ENDO Re03/17/19 SEX: M Status: REG REF SPEC: [id number] ESE: 03/17/[address] [facility] [address]: Carlos Knapp MD REQ: [id number] RECD: 03/17/19 STATUS: JOSÉ MIGUEL HENRIQUEZ DR: Kai Gibbs MD _ SOURCE: GAS ANTRUM SPDESC: ORDERED: Clotest Procedure Result Reported Site Clotest Final 03/18/19726 ML Clotest Negative * ML - Main Lab . END OF REPORT DEPARTMENT OF PATHOLOGY, [address] [place] [address] Juan Skinner M.D. Director GARY # [id number] SEE RESULT BELOW Name: JONEL LAW : [address]: Carlos Knapp MD Acct: [id number] Unit: [id number] AGE: 43 Location: ENDO Re03/17/19 SEX: M Status: REG REF SPEC: [id number] ESE: 03/17/[address] [facility] [address]: Carlos Knapp MD REQ: [id number] RECD: 03/17/19-143 STATUS: JOSÉ MIGUEL HENRIQUEZ DR: Kai Gibbs MD _ SOURCE: GAS ANTRUM SPDESC: ORDERED: Clotest Procedure Result Reported Site Clotest Final 03/18/19- 726 ML Clotest Negative * ML - Main Lab . END OF REPORT DEPARTMENT OF PATHOLOGY, [address] [place] [address] Juan Skinner M.D. Director [facility] # [id number] Procedures Date Code Description Status 03/17/2019 95839 EGD+Biopsy Single Or Multiple Completed Medical Devices Description No Information Available Encounters Type Date Location Provider Dx Diagnosis Office Visit 04/30/2019 Gastroenterology Carlos Celis R10.10 Upper abdominal 2:00p [facility] Knapp MD pain, unspecified Office Visit 02/27/2019 Gastroenterology Argentina Burr K21.9 Gastro- esophageal 1:45p [facility] reflux disease JOURDAN without esophagitis R10.10 Upper abdominal pain, unspecified R11.2 Nausea with vomiting, unspecified Assessments Date Code Description Provider 04/30/2019 R10.10 Upper abdominal pain, unspecified Carlos Knapp MD 03/17/2019 R11.2 Nausea with vomiting, unspecified Carlos Knapp MD 03/17/2019 K29.70 Gastritis, unspecified, without bleeding Carlos Knapp MD 02/27/2019 K21.9 Gastro-esophageal reflux disease without Argentina Castillo PA-C esophagitis 02/27/2019 R10.10 Upper abdominal pain, unspecified KANDICE Bryant 02/27/2019 R11.2 Nausea with vomiting, unspecified JULIANNE Bryant Plan of Treatment 04/30/2019 - Carlos Knapp, MDR10.10 Upper abdominal pain, unspecifiedComments:we had a long discussion regarding all of his symptoms, he is deathly doing better but not 100%. Wedid discuss irritable bowel syndrome. I would like to try him on Levbid as the Bentyl does not seemto be controlling symptoms adequately. He will continue with the pantoprazole as it seems to be working really well. He will try the Levbid for a few weeks and then report back to me Functional Status Description No Information Available Mental Status Description No Information Available Referrals Description No Information Available
--- OUTSIDE RECORDS SUMMARY | 2019-07-01 11:19 | XMS REPORT | Continuity of Care Document ---
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 04/03/2019 40mg MD Aria Tablets DR Mendoza Take 1 Tablet By Unknown 50mg Tablets [...] Result H/L Range Note Laboratory test 03/17/2019 [facility] [place] Surgical SEE RESULT 1 finding Pathology BELOW Laboratory test 03/17/2019 [facility] Clotest SEE RESULT 2 finding BELOW 1 SEE RESULT BELOW Name: JONEL LAW : [address]: Carlos Knapp MD Acct: [id number] Unit: [id number] AGE: 43 Location: ENDO Re03/17/19 SEX: M Status: DEP REF SPEC: [id number] ESE: 03/17/19 [facility] DR: Carlos Knapp MD REQ: [id number] RECD: 03/17/19 STATUS: ZEINAB HENRIQUEZ DR: Kai [...] CONTINUED ON NEXT PAGE DEPARTMENT OF PATHOLOGY, [address] [place] [address] Juan Skinner M.D. Director [facility] # [id number] RUN DATE: 03/18/19 [facility] LAB LIVE PAGE 2 Patient: JONEL LAW [id number] (Continued) POST-OPERATIVE DIAGNOSIS (Continued) POST-OPERATIVE DIAGNOSIS EGD: [...] 1121 END OF REPORT DEPARTMENT OF PATHOLOGY, [address] [place] [address] Juan Skinner M.D. Director [facility] # [id number] SEE RESULT BELOW Name: JONEL LAW : [address]: Carlos Knapp MD Acct: [id number] Unit: [id number] AGE: 43 Location: ENDO Re03/17/19 SEX: M Status: DEP REF SPEC: [id number] ESE: 03/17/[address]: Carlos Knapp MD REQ: [id number] RECD: 03/17/19 STATUS: ZEINAB HENRIQUEZ DR: Kai [...] CONTINUED ON NEXT PAGE DEPARTMENT OF PATHOLOGY, [address] [place] [address] Juan Skinner M.D. Director [facility] # [id number] RUN DATE: 03/18/19 [facility] LAB LIVE PAGE 2 Patient: JONEL LAW [id number] (Continued) POST-OPERATIVE DIAGNOSIS (Continued) POST-OPERATIVE DIAGNOSIS EGD: [...] 1121 END OF REPORT DEPARTMENT OF PATHOLOGY, [address] [place] [address] Juan Skinner M.D. Director [facility] # [id number] SEE RESULT BELOW Name: JONEL LAW : [address]: Carlos Knapp MD Acct: [id number] Unit: [id number] AGE: 43 Location: ENDO Re03/17/19 SEX: M Status: DEP REF SPEC: [id number] ESE: 03/17/19 [facility] DR: Carlos Knapp MD REQ: [id number] RECD: 03/17/19692 STATUS: ZEINAB HENRIQUEZ DR: Kai Gibbs MD [...] CONTINUED ON NEXT PAGE DEPARTMENT OF PATHOLOGY, [address] [place] [address] Juan Skinner M.D. Director [facility] # [id number] RUN DATE: 03/19/19 [facility] LAB LIVE PAGE 2 Patient: JONEL LAW [id number] (Continued) SPECIMEN COMMENTS (Continued) components of medications [...] 1121 END OF REPORT DEPARTMENT OF PATHOLOGY, [address] [place] [address] Juan Skinner M.D. Director [facility] # [id number] SEE RESULT BELOW Name: JONEL LAW : [address]: Carlos Knapp MD Acct: [id number] Unit: [id number] AGE: 43 Location: ENDO Re03/17/19 SEX: M Status: DEP REF SPEC: [id number] ESE: 03/17/19-[address]: Carlos Knapp MD REQ: [id number] RECD: 03/17/199876 STATUS: ZEINAB HENRIQUEZ DR: Kai Gibbs MD [...] CONTINUED ON NEXT PAGE DEPARTMENT OF PATHOLOGY, [address] [place] [address] Juan Skinner M.D. Director [facility]ARY # [id number] RUN DATE: 03/19/19 [facility] LAB LIVE PAGE 2 Patient: JONEL LAW [id number] (Continued) SPECIMEN COMMENTS (Continued) components of medications [...] 1121 END OF REPORT DEPARTMENT OF PATHOLOGY, [address] [place] [address] Juan Skinner M.D. Director [facility] # [id number] 2 SEE RESULT BELOW Name: JONEL LAW : [address]: Carlos Knapp MD Acct: [id number] Unit: [id number] AGE: 43 Location: ENDO Re03/17/19 SEX: M Status: REG REF SPEC: [id number] ESE: 03/17/19 [facility] DR: Carlos Knapp MD REQ: [id number] RECD: 03/17/196591 STATUS: JOSÉ MIGUEL HENRIQUEZ DR: Kai Gibbs MD _ SOURCE: GAS ANTRUM SPDESC: ORDERED: Clotest Procedure Result Reported Site Clotest Final 03/18/19- 726 ML Clotest Negative * ML - Main Lab . END OF REPORT DEPARTMENT OF PATHOLOGY, [address] [place] [address] Juan Skinner M.D. Director [facility] # [id number] SEE RESULT BELOW Name: JONEL LAW : [address]: Carlos Knapp MD Acct: [id number] Unit: [id number] AGE: 43 Location: ENDO Re03/17/19 SEX: M Status: REG REF SPEC: [id number] ESE: 03/17/19 [facility] DR: Carlos Knapp MD REQ: [id number] RECD: 03/17/19 STATUS: JOSÉ MIGUEL HENRIQUEZ DR: Kai Gibbs MD _ SOURCE: GAS ANTRUM SPDESC: ORDERED: Clotest Procedure Result Reported Site Clotest Final 03/18/19726 ML Clotest Negative * ML - Main Lab . END OF REPORT DEPARTMENT OF PATHOLOGY, [address] [place] [address] Juan Skinner M.D. Director [facility] # [id number] Procedures Date Code Description Status 03/17/2019 24281 EGD+Biopsy Single Or Multiple Completed Medical Devices Description No Information Available Encounters Type Date Location Provider Dx Diagnosis Office Visit 02/27/2019 Gastroenterology Argentina Burr K21.9 Gastro- esophageal 1:45p [facility] Castillo PA-C reflux disease without esophagitis R10.10 Upper abdominal pain, unspecified [...] vomiting, unspecified JULIANNE Bryant Plan of Treatment Future Appointment(s):05/26/2019 9:30 am - Carlos Knapp MD at [facility]04/30/2019 - Carlos Knapp, MDR10.10 Upper abdominal pain, [...]
[2019-07-01 11:49] VITALS: BP 132/85
[2019-07-01] MEDS ORDERED: Lidocaine 2% PF * 5 ML VIAL INJ ONE (11:56)
--- NOTE | 2019-07-01 13:29 | UC ---
Skin Complaint HPI - HPI Summary HPI Summary: painful lump at the plantar left foot x 1 week getting worse each day , pain is 6 out of 10 , worse with walking, better with elevation no redness, no discharge , no known injury , no fb - History of Current Complaint Chief Complaint: UCLowerExtremity Time Seen by Provider: 07/01/19 11:45 Stated Complaint: LEFT FOOT COMPLAINT Hx Obtained From: Patient Onset/Duration: Gradual Onset, Lasting Days - 7, Still Present Timing: Constant Onset Severity: Moderate Current Severity: Moderate Pain Intensity: 2 Pain Scale Used: 0-10 Numeric Location: Discrete - left plantar foot Character: Swelling, Pain, Raised, Painful Aggravating Factor(s): Touch Alleviating Factor(s): Nothing Associated Signs & Symptoms: Positive: Tenderness. Negative: Red Streaks - Allergy/Home Medications Allergies/Adverse Reactions: Allergies Allergy/AdvReac Type Severity Reaction Status Date / Time Penicillins AdvReac Intermediate See Comment Verified 07/01/19 11:40 PMH/Surg Hx/FS Hx/Imm Hx Previously Healthy: Yes - Surgical History Surgical History: Yes Surgery Procedure, Year, and Place: Ear tubes age 7, sinus surgery-01/01/19 - Family History Known Family History: Positive: Cardiac Disease - Social History Alcohol Use: None Substance Use Type: Marijuana Substance Use Comment - Amount & Last Used: medical marijuana Smoking Status (MU): Former Smoker Type: Cigarettes Amount Used/How Often: 1 1/2 ppd Length of Time of Smoking/Using Tobacco: 24 yrs Have You Smoked in the Last Year: Yes When Did the Patient Quit Smoking/Using Tobacco: 03/23 - Immunization History Most Recent Tetanus Shot: unknown Vaccination Up to Date: No Review of Systems All Other Systems Reviewed And Are Negative: Yes Constitutional: Positive: Negative Eyes: Positive: Negative ENT: Positive: Negative Is Patient Immunocompromised?: No Physical Exam Triage Information Reviewed: Yes Appearance: Well-Appearing, No Pain Distress, Well-Nourished Vital Signs: Initial Vital Signs Temp 97.4 F 07/01/19 11:44 Pulse 60 07/01/19 11:44 Resp 16 07/01/19 11:44 BP 132/85 07/01/19 11:44 Pulse Ox 100 07/01/19 11:44 Vital Signs Reviewed: Yes Eye Exam: Normal Eyes: Positive: Conjunctiva Clear ENT: Positive: Normal ENT inspection Neck: Positive: Supple, Nontender, No Lymphadenopathy Respiratory: Positive: Chest non-tender, Lungs clear, Normal breath sounds Cardiovascular: Positive: RRR, No Murmur, Pulses Normal Skin: Positive: Other - nodular lesion left plantar foot, + swelling, tender to touch , no fluctuent . Procedures - Incision and Drainage Foot Site: left plantar foot Anesthesia: Topical, Lidocaine - 2 % x 3 cc Instrument(s): Scalpel - # 11 , Needle Course/Dx - Course Course Of Treatment: no fb / abscess was noted after opening the skin lesion was more c/w plantar wart - Diagnoses Provider Diagnosis: Plantar wart of left foot Discharge ED - Sign-Out/Discharge Documenting (check all that apply): Patient Departure All imaging exams completed and their final reports reviewed: No Studies - Discharge Plan Condition: Stable Disposition: HOME Patient Education Materials: Common Wart (ED) Referrals: Kai Gibbs MD [Primary Care Provider] - Vivek JOSEPH,Stu Rm [Doctor of Podiatric Medicine] - 1 Week Additional Instructions: no foreign body , no abscess, ? plantar warts - Billing Disposition and Condition Condition: STABLE Disposition: Home
== END 2019-07-01 12:30 | disposition home or self-care (01) ==
LOC: UCCORT 11:04
DX: B07.0 Plantar wart (principal); M25.572 Pain in left ankle and joints of left foot; Z88.0 Allergy status to penicillin; Z87.891 Personal history of nicotine dependence
CPT/HCPCS: 99212; G0463

== ENCOUNTER 2019-10-05 13:07 | Emergency (ER) | payer OTHER ==
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
--- OUTSIDE RECORDS SUMMARY | 2019-10-05 13:17 | XMS REPORT | Continuity of Care Document ---
:1975 External Reference #:[id number] Author Name Arash Duncan N.P. Address [address] [place] [address] [address] [place] [address] Care Team Providers Name Role Phone [facility] - Care Team Information [employer] Mental Health Problems Active Problems Provider Date Abdominal pain [...] Medications SIG Qnty Indications Ordering Provider Date Ibuprofen 1 by mouth three 90tabs M10.9 Kai Gibbs, 09/26/2019 800mg Tablets times a day as M.D. needed Metoprolol Succinate 1 by mouth every 30tabs I10 Kai Gibbs, 2018 ER day M.D. 100mg Tablets ER 24HR Vimpat 1 tab by mouth G40.909 Kai Gibbs, 08/29/2019 200mg Tablets twice a M.D. day-Neurology Lorazepam 1 tab by mouth 30tabs G40.909 Kai Gibbs, 07/08/2019 2mg Tablets twice a day as M.D. needed after siezure -psych F41.9 Dicyclomine HCL by mouth twice a 120caps K21.0 SaiKai nelson, 05/13/2019 10mg Capsules day-GI M.D. K30 K58.1 Pantoprazole Sodium 1 by mouth twice 180tabs K21.0 SaiKai nelson, 2018 40mg a day M.D. Tablets K3Huy Ondansetron 1 tab by mouth 90tabs R11.2 SaiKai nelson, 02/10/2019 4mg Tablets every 4 hours as M.D. Dispers needed Carafate 1 tab by mouth 270tabs K21.0 SaiKai nelson, 02/10/2019 1gm Tablets three times a day M.D. before meals K30 Oxycodone-Acetaminophen As needed Unknown 10-325mg Tablets Zoloft 1 Unknown 100mg Tablets Famotidine 1 Unknown 40mg Tablets Aptiom Take 2 Tablets G40.909 Unknown 800mg Tablets By Mouth Once Daily AT Night AT Bedtime Allopurinol 1 by mouth 90tabs M10.9 [facility] every day M., M.D. Loratadine 1 tab by mouth 90tabs J30.9 [facility] 10mg Tablets every day as M. M.D. needed History Medications Vimpat 1 tab by mouth twice G40.909 [facility], [facility] 08/12/2019 - 150mg Tablets a day-neurology Oniel Godfrey 08/29/2019 Citalopram 1 by mouth every day 30tabs F41.9 [facility], [facility] 07/21/2019 - Hydrobromide Oniel Godfrey 07/28/2019 20mg Tablets Vimpat 1 tab by mouth twice G40.909 Sai, [facility] 04/22/2019 - 100mg Tablets a day-Neurology Oniel Godfrey 08/12/2019 Zonisamide 3 by mouth at G40.909 Kai Gibbs 04/22/2019 - 100mg bedtime-Rosendo Godfrey M.D. 08/29/2019 Capsules Immunizations CPT Code Status Date Vaccine Lot # [id number] Given 07/08/2019 Flu Virus Vaccine, Quadrivalent, Slit Virus, Im [id number] Use Vital Signs Date Vital Result Comment 09/26/2019 1:33pm BP Systolic 138 mmHg BP Diastolic 70 mmHg Height 73 inches 6'1" Weight 288.00 lb BMI (Body Mass Index) 38.0 kg/m2 Heart Rate 70 /min Respiratory Rate 16 /min 09/22/2019 8:49am BP Systolic 138 mmHg BP Diastolic 65 mmHg Height 73 inches 6'1" Weight 287.00 lb BMI (Body Mass Index) 37.9 kg/m2 Heart Rate 77 /min Respiratory Rate 17 /min Results Test Acquired Date Facility Test Result H/L Range Note Hemoglobin A1c 09/22/2019 [facility] Hemoglobin A1c 5.2 % (4.0-6.0) 1 (Glyco HGB) [address] [facility] @ (607)- - Est Average Glucose 103 mg/dL Lipid Profile 09/22/2019 [facility] Cholesterol @ 143 mg/dL (0-200) (Trig/Chol/HDL) [address] [facility] (609)- - Triglyceride @ 68 mg/dL (30-200) HDL Cholesterol @ 38 mg/dL Low (>40) 2 Chol/HDL Ratio 3.8 RATIO 3 LDL Chol (Calc) 91 mg/dL (<130) 4 CBC Auto Diff 09/22/2019 [facility] WBC 6.6 10*3/uL (4.1-11.0) [address] [facility] (601)- - RBC 5.10 10*6/uL (4.60-6.10) HGB 14.7 g/dL (13.5-18.0) HCT 43.3 % (41.0-53.0) MCV 84.9 fL (80.0-95.0) MCH 28.9 pg (27.0-32.0) MCHC 34.0 g/dL (32.0-36.0) RDW 13.2 % (10.5-14.5) PLT 180 10*3/uL (150-450) MPV 9.4 fL (7.1-10.7) Neut % 71.4 % (35.0-75.0) Lymph % 16.9 % (16.0-52.0) Z[place]ala % 6.1 % (0.0-8.0) Eos % 4.9 % (0.0-5.0) Baso % 0.7 % (0.0-4.0) Neut # 4.7 10*3/uL (1.8-7.7) Lymph # 1.1 10*3/uL Low (1.2-4.8) Zavala # 0.4 10*3/uL (0.0-0.8) Eos # 0.3 10*3/uL (0.0-0.5) Baso # 0.0 10*3/uL (0.0-0.2) Laboratory test 09/22/2019 [facility] Free Thyroxine 0.98 ng/dL (0.76- 1.46) finding [address] [facility] @ (607)- - TSH,Ultrasensitive @ 2.250 mIU/L (0.360-4.170) Magnesium 1.9 mg/dL (1.7-2.4) Comp Metabolic Panel 09/22/2019 [facility] Sodium 134 mmol/L Low (136- 145) [address] [facility] (607)- - Potassium 4.0 mmol/L (3.6-5.2) Chloride 100 mmol/L (100-108) Co2 28 mmol/L (22-31) Anion Gap 6 mmol/L Low (7-16) Urea Nitrogen 9 mg/dL (7-24) Creatinine 0.73 mg/dL Low (0.80-1.30) BUN/Creat Ratio 12.3 RATIO (10.0-20.0) Glucose 84 mg/dL (70-99) Calcium 8.7 mg/dL (8.4-10.2) Total Protein 6.4 g/dL (6.4-8.2) Albumin 3.7 g/dL (3.5-4.6) Globulin 2.7 g/dL (2.7-4.3) Alb/Glob Ratio 1.4 RATIO Alkaline Phosphatase 131 U/L High (45-117) Bilirubin,Total 0.9 mg/dL (0.0-1.0) Ast (Sgot) 12 U/L (11-39) Alt (SGPT) 15 U/L (12-78) GFR >60 ml/min/1.73m2 (>59) GFR ( Amer) >60 ml/min/1.73m2 (>59) GFR Interpretation <SEE NOTE> 5 Laboratory test 08/12/2019 [facility] Ethyl Negative Normal 10 6, 7 finding Glucuronide ng/mL Gabapentin Negative ng/mL Normal 0.5 8 Tramadol Negative ng/mL Normal 0.5 9 THC-Delta-9 44.49 Positive I <SEE NOTE> ng/mL Abnormal 1 10 Oral Fluid Drug 08/12/2019 [facility] Amphetamine NEGATIVE Normal 50 Screen Barbiturate NEGATIVE Normal 20 Benzodiazepine NEGATIVE Normal 1.5 Cannabinoid POSITIVE Abnormal 1 Cocaine NEGATIVE Normal 5 Methadone NEGATIVE Normal 5 Methamphetamine NEGATIVE Normal 40 Opiate NEGATIVE Normal 10 Phencyclidine NEGATIVE Normal 1 11 Antidepressant PNL 08/12/2019 [facility] Amitriptyline Negative Normal 0.5 (Oral-LC/MS/MS ng/mL Clomipramine Negative ng/mL Normal 0.5 Desipramine Negative ng/mL Normal 0.5 Doxepin Negative ng/mL Normal 0.5 Fluoxetine Negative ng/mL Normal 0.5 Imipramine Negative ng/mL Normal 0.5 Nortriptyline Negative ng/mL Normal 0.5 Sertraline 1.10 Positive In <SEE NOTE> ng/mL Abnormal 0.5 12 Trimipramine Negative ng/mL Normal 0.5 13 Methadone Panel 08/12/2019 [facility] Methadone Negative ng/mL Normal 1 (Oral-LC/MS/MS) Eddp Negative ng/mL Normal 0.2 14 Opiate Panel 08/12/2019 [facility] 6-Olamide (Heroin Negative Normal 0.5 (Oral-LC/MS/MS) Metabolite) ng/mL Codeine Negative ng/mL Normal 0.5 Hydrocodone 1.12 Positive In <SEE NOTE> ng/mL Abnormal 0.5 15 Hydromorphone Negative ng/mL Normal 0.5 Morphine Negative ng/mL Normal 1 Oxycodone Negative ng/mL Normal 0.5 Oxymorphone Negative ng/mL Normal 0.5 16 Cocaine Panel 08/12/2019 [facility] Cocaine Negative ng/mL Normal 0.5 (Oral-LC/MS/MS Benzoylecgonine Negative ng/mL Normal 1 17 Buprenorphine PNL 08/12/2019 [facility] Buprenorphine Negative Normal 0.05 (Oral -LC/MS/MS) ng/mL Norbuprenorphine Negative ng/mL Normal 0.5 Naloxone Negative ng/mL Normal 0.1 18 Barbiturate PNL 08/12/2019 [facility] Butalbital Negative ng/mL Normal 10 (Oral-L C/MS/MS) Pentobarbital Negative ng/mL Normal 10 Phenobarbital Negative ng/mL Normal 10 Secobarbital Negative ng/mL Normal 10 19 Benzodiazepine PNL 08/12/2019 [facility] 7-Aminoclonazepam Negative Normal 0.2 (Oral-LC/MS/MS) ng/mL Alprazolam Negative ng/mL Normal 0.2 Clonazepam Negative ng/mL Normal 0.2 Diazepam Negative ng/mL Normal 0.2 Lorazepam Negative Inconsi <SEE NOTE> ng/mL Abnormal 0.2 20 Nordiazepam Negative ng/mL Normal 0.2 Oxazepam Negative ng/mL Normal 0.2 Temazepam Negative ng/mL Normal 0.2 Chlordiazepoxide Negative ng/mL Normal 0.2 Midazolam Negative ng/mL Normal 0.2 Prazepam Negative ng/mL Normal 0.2 Estazolam Negative ng/mL Normal 0.2 21 Amphetamine Panel 08/12/2019 [facility] Amphetamine Negative ng/ mL Normal 0.5 (Oral -LC/MS/MS) Methamphetamine Negative ng/mL Normal 0.5 Mda Negative ng/mL Normal 1 Mdea Negative ng/mL Normal 0.5 Mdma Negative ng/mL Normal 0.5 22 Oral Dawn FML 08/12/2019 [facility] Comment: See Components Normal 23 Practice Laboratory test 05/26/2019 [facility] Surgical SEE RESULT 24 finding Pathology BELOW CBC Auto Diff 04/17/2019 [facility] White Blood 11.3 10^3/uL High 3.5 -1 Count 0.8 Red Blood Count 5.61 10^6/uL High 4.18-5.48 [...] Blood Cells % 0.0 Laboratory test 04/17/2019 [facility] B-Type Natriuretic 90 pg/mL <= 100 finding Peptide BNP Comp Metabolic 04/17/2019 [facility] Sodium 128 mmol/L Low 135-145 Panel Potassium [...] Egfr Non- 118.4 >60 Egfr 143.3 >60 25 Laboratory test finding 04/17/2019 [facility] Alcohol < 10 mg/dL Normal <10 1 Performed using [employer] immunoassay. Care must be taken when interpreting HbA1c results in patients with a hemoglobin variant or decreased erythrocyte lifespan. Values 5.7 - 6.4% suggest prediabetes. Values >=6.5% are diagnostic for diabetes. REFERENCE: DIABETES CARE 2018: 41(S13-S27). 2 PER NCEP ATP III GUIDELINES: RESULTS LOWER THAN 40 MG/DL ARE SUGGESTIVE OF INCREASED RISK FOR CORONARY ARTERY DISEASE. RESULTS > OR = TO 60 MG/DL ARE CONSIDERED A NEGATIVE RISK FACTOR. 3 INTERPRETATION OF CHOL-HDL RATIO CHD RISK FEMALE MALE VERY HIGH >8.3 >14.3 HIGH 5.6- 8.3 6.7- 14.3 AVERAGE 3.7- 5.6 4.0- 6.7 BELOW AVERAGE 2.5- 3.7 2.7- 4.0 PROTECTED <2.5 <2.7 4 PER NCEP ATP III GUIDELINES: OPTIMAL < 100 NEAR OPTIMAL 100 - 129 BORDERLINE HIGH 130 - 159 HIGH 160 - 189 VERY HIGH > 189 5 NORMAL KIDNEY FUNCTION OR MILD DISEASE - GFR >OR= 60 CHRONIC KIDNEY DISEASE - GFR 15 - 59 RENAL FAILURE - GFR <15 Est. GFR calculation based on the MDRD study equation, which assumes a steady state for creatinine. Est. GFR should not be used for medication dosing. 6 Prescribed Medications: Lorazepam (Lorazepam), Zonisamide (Zonisamide), ONDANSETRON, METOPROLOL, PANTOPRAZOLE 7 Prescribed Medications: Lorazepam (Lorazepam), Zonisamide (Zonisamide), ONDANSETRON, METOPROLOL, PANTOPRAZOLE 8 Prescribed Medications: Lorazepam (Lorazepam), Zonisamide (Zonisamide), ONDANSETRON, METOPROLOL, PANTOPRAZOLE 9 Prescribed Medications: Lorazepam (Lorazepam), Zonisamide (Zonisamide), ONDANSETRON, METOPROLOL, PANTOPRAZOLE 10 44.49 Positive Inconsistent Prescribed Medications: Lorazepam (Lorazepam), Zonisamide (Zonisamide), ONDANSETRON, METOPROLOL, PANTOPRAZOLE 11 Prescribed Medications: Lorazepam (Lorazepam), Zonisamide (Zonisamide), ONDANSETRON, METOPROLOL, PANTOPRAZOLE 12 1.10 Positive Inconsistent 13 Prescribed Medications: Lorazepam (Lorazepam), Zonisamide (Zonisamide), ONDANSETRON, METOPROLOL, PANTOPRAZOLE 14 Prescribed Medications: Lorazepam (Lorazepam), Zonisamide (Zonisamide), ONDANSETRON, METOPROLOL, PANTOPRAZOLE 15 1.12 Positive Inconsistent 16 Prescribed Medications: Lorazepam (Lorazepam), Zonisamide (Zonisamide), ONDANSETRON, METOPROLOL, PANTOPRAZOLE 17 Prescribed Medications: Lorazepam (Lorazepam), Zonisamide (Zonisamide), ONDANSETRON, METOPROLOL, PANTOPRAZOLE 18 Prescribed Medications: Lorazepam (Lorazepam), Zonisamide (Zonisamide), ONDANSETRON, METOPROLOL, PANTOPRAZOLE 19 Prescribed Medications: Lorazepam (Lorazepam), Zonisamide (Zonisamide), ONDANSETRON, METOPROLOL, PANTOPRAZOLE 20 Negative Inconsistent 21 Prescribed Medications: Lorazepam (Lorazepam), Zonisamide (Zonisamide), ONDANSETRON, METOPROLOL, PANTOPRAZOLE 22 Prescribed Medications: Lorazepam (Lorazepam), Zonisamide (Zonisamide), ONDANSETRON, METOPROLOL, PANTOPRAZOLE 23 Prescribed Medications: Lorazepam (Lorazepam), Zonisamide (Zonisamide), ONDANSETRON, METOPROLOL, PANTOPRAZOLE 24 SEE RESULT BELOW Name: JONEL LAW Mariama : [address]: Carlos Knapp MD Acct: [id number] Unit: [id number] AGE: 43 Location: [facility] Re05/26/19 SEX: M Status: DEP REF SPEC: [id number] ESE: 05/26/19-[address] [facility] [address]: Carlos Knapp MD REQ: [id number] RECD: 05/26/194122 STATUS: ZEINAB HENRIQUEZ DR: Kai Gibbs MD [...] 1223 END OF REPORT DEPARTMENT OF PATHOLOGY, [address] [place] [address] Juan Skinner M.D. Director [facility] # [id number] 25 Because ethnic data is not always readily [...] 15-29 5 Kidney failure <15 (or dialysis) Procedures Description No Information Available Medical Devices Description No Information Available Encounters Type Date Location Provider Dx Diagnosis Office Visit 09/26/2019 [facility] Arash Duncan, I10 Essential ( primary) 2:00p N.P. hypertension E78.2 Mixed hyperlipidemia K21.0 Gastro-esophageal reflux [...] pharyngitis K58.1 Irritable bowel syndrome with constipation Z79.899 Other long chain beamer (current) drug therapy K57.00 Dvtrcli of sm int w perforation and abscess w/o bleeding K81.1 Chronic cholecystitis M25.511 Pain in right shoulder M79.641 Pain in right hand S62.664A Nondisp fx of distal phalanx of right ring finger, init Office Visit 09/22/2019 9:15a [facility] Arash Duncan, I10 Essential (primary) N.P. hypertension E78.2 Mixed hyperlipidemia K21.0 Gastro-esophageal reflux [...] pharyngitis K58.1 Irritable bowel syndrome with constipation Z79.899 Other long-term (current) drug therapy K57.00 Dvtrcli of sm int w perforation and abscess w/o bleeding K81.1 Chronic cholecystitis M25.511 Pain in right shoulder M79.641 Pain in right hand S62.664A Nondisp fx of distal phalanx of right ring finger, init Office Visit 09/08/2019 10:45a [facility] Kai Gibbs I10 Darwin ( primary) Oniel Godfrey hypertension E78.2 Mixed [...] pharyngitis K58.1 Irritable bowel syndrome with constipation Z79.899 Other long-term (current) drug therapy K57.00 Dvtrcli of sm int w perforation and abscess w/o bleeding K81.1 Chronic cholecystitis Office Visit 08/12/2019 8:45a [facility] Kai Gibbs I10 Essential ( primary) [...] pharyngitis K58.1 Irritable bowel syndrome with constipation Z79.899 Other long chain beamer (current) drug therapy Office Visit 07/21/2019 10:15a [facility] Arash Duncan, I10 Essential (primary) N.P. hypertension E78.2 Mixed hyperlipidemia K21.0 Gastro-esophageal reflux [...] pharyngitis K58.1 Irritable bowel syndrome with constipation M79.672 Pain in left foot Office Visit 07/08/2019 11:00a [facility] Kai Gibbs I10 Darwin ( primary) Oniel Godfrey hypertension E78.2 Mixed [...] pharyngitis K58.1 Irritable bowel syndrome with constipation M79.672 Pain in left foot Z23 Encounter for immunization Office Visit 05/13/2019 11:00a [facility] Kai Gibbs I10 Darwin ( primary) Oniel Godfrey hypertension E78.2 Mixed [...] syndrome with constipation Office Visit 04/22/2019 10:45a [facility] Kai Gibbs I10 Essential ( primary) [...] kidney G47.00 Insomnia, unspecified J31.2 Chronic pharyngitis Assessments Date Code Description Provider 09/26/2019 I10 Essential (primary) hypertension Arash Duncan N.P. 09/26/2019 E78.2 Mixed hyperlipidemia Arash Duncan N.P. 09/26/2019 K21.0 Gastro-esophageal reflux disease with Arash Duncan NBharti esophagitis 09/26/2019 K30 Functional dyspepsia Arash Duncan, N.P. 09/26/2019 L20.9 Atopic dermatitis, unspecified Arash Duncan, N.P. 09/26/2019 J30.9 Allergic rhinitis, unspecified Arash Duncan, N.P. 09/26/2019 M10.9 Gout, unspecified Arash Duncan, N.P. 09/26/2019 G40.909 Epilepsy, unspecified, not intractable, Arash Duncan, N.P. without status epilepticus 09/26/2019 F41.9 Anxiety disorder, unspecified Arash Duncan, N.P. 09/26/2019 F33.9 Major depressive disorder, recurrent, Arash Duncan, N.P. unspecified 09/26/2019 E66.01 Morbid (severe) obesity due to excess Arash Duncan, N.P. calories 09/26/2019 M51.37 Other intervertebral disc degeneration, Arash Duncan, N.P. lumbosacral region 09/26/2019 M54.17 Radiculopathy, lumbosacral region Arash Duncan, N.P. 09/26/2019 M25.551 Pain in right hip Arash Duncan, N.P. 09/26/2019 R11.2 Nausea with vomiting, unspecified Arash Duncan, N.P. 09/26/2019 R10.13 Epigastric pain Arash Duncan, N.P. 09/26/2019 K80.34 Calculus of bile duct with chronic Arash Duncan, N.P. cholangitis without obstruction 09/26/2019 E55.9 Vitamin D deficiency, unspecified Arash Duncan, N.P. 09/26/2019 I45.10 Unspecified right bundle-branch block Arash Duncan, N.P. 09/26/2019 N20.0 Calculus of kidney Arash Duncan, N.P. 09/26/2019 G47.00 Insomnia, unspecified Arash Duncan, N.P. 09/26/2019 J31.2 Chronic pharyngitis Arash Duncan, N.P. 09/26/2019 K58.1 Irritable bowel syndrome with constipation Arash Duncan, N.P. 09/26/2019 Z79.899 Other long-term (current) drug therapy Arash Duncan, N.P. 09/26/2019 K57.00 Diverticulitis of small intestine with Arash Duncan, N.P. perforation and abscess without bleeding 09/26/2019 K81.1 Chronic cholecystitis Arash Duncan, N.P. 09/26/2019 M25.511 Pain in right shoulder Arash Duncan, N.P. 09/26/2019 M79.641 Pain in right hand Arash Duncan, N.P. 09/26/2019 S62.664A Nondisplaced fracture of distal phalanx of Arash Duncan , N.P. right ring finger, initial encounter for closed fracture 09/22/2019 I10 Essential (primary) hypertension Arash Duncan, N.P. 09/22/2019 E78.2 Mixed hyperlipidemia Arash Duncan, N.P. 09/22/2019 K21.0 Gastro-esophageal reflux disease with Arash Duncan, N.P. esophagitis 09/22/2019 K30 Functional dyspepsia Arash Duncan, N.P. 09/22/2019 L20.9 Atopic dermatitis, unspecified Arash Duncan, N.P. 09/22/2019 J30.9 Allergic rhinitis, unspecified Arash Duncan, N.P. 09/22/2019 M10.9 Gout, unspecified Arash Duncan, N.P. 09/22/2019 G40.909 Epilepsy, unspecified, not intractable, Arash Duncan, N.P. without status epilepticus 09/22/2019 F41.9 Anxiety disorder, unspecified Arash Duncan, N.P. 09/22/2019 F33.9 Major depressive disorder, recurrent, Arash Duncan, N.P. unspecified 09/22/2019 E66.01 Morbid (severe) obesity due to excess Arash Duncan, N.P. calories 09/22/2019 M51.37 Other intervertebral disc degeneration, Arash Duncan, N.P. lumbosacral region 09/22/2019 M54.17 Radiculopathy, lumbosacral region Arash Duncan, N.P. 09/22/2019 M25.551 Pain in right hip Arash Duncan, N.P. 09/22/2019 R11.2 Nausea with vomiting, unspecified Arash Duncan, N.P. 09/22/2019 R10.13 Epigastric pain Arash Duncan, N.P. 09/22/2019 K80.34 Calculus of bile duct with chronic Arash Duncan, N.P. cholangitis without obstruction 09/22/2019 E55.9 Vitamin D deficiency, unspecified Arash Duncan, N.P. 09/22/2019 I45.10 Unspecified right bundle-branch block Arash Duncan, N.P. 09/22/2019 N20.0 Calculus of kidney Arash Duncan, N.P. 09/22/2019 G47.00 Insomnia, unspecified Arash Duncan N.P. 09/22/2019 J31.2 Chronic pharyngitis Arash Duncan N.P. 09/22/2019 K58.1 Irritable bowel syndrome with constipation Arash Duncan N.P. 09/22/2019 Z79.899 Other long chain beamer (current) drug therapy Arash Duncan, N.P. 09/22/2019 K57.00 Diverticulitis of small intestine with Arash Duncan N.PJacinda perforation and abscess without bleeding 09/22/2019 K81.1 Chronic cholecystitis Arash Duncan N.P. 09/22/2019 M25.511 Pain in right shoulder Arash Duncan N.P. 09/22/2019 M79.641 Pain in right hand Arsah Duncan N.P. 09/22/2019 S62.664A Nondisplaced fracture of distal phalanx of Arash Duncan N.P. right ring finger, initial encounter for closed fracture 09/08/2019 I10 Essential (primary) hypertension Kai Gibbs M.D. 09/08/2019 E78.2 Mixed hyperlipidemia Kai Gibbs M.D. 09/08/2019 K21.0 Gastro-esophageal reflux disease with Kai Gibbs M.D. esophagitis 09/08/2019 K30 Functional dyspepsia Kai Gibbs M.D. 09/08/2019 L20.9 Atopic dermatitis, unspecified Kai Gibbs M.D. 09/08/2019 J30.9 Allergic rhinitis, unspecified Kai Gibsb M.D. 09/08/2019 M10.9 Gout, unspecified Kai Gibbs M.D. 09/08/2019 G40.909 Epilepsy, unspecified, not intractable, Kai Gibbs M.D. without status epilepticus 09/08/2019 F41.9 Anxiety disorder, unspecified SaiKai cardona M.D. 09/08/2019 F33.9 Major depressive disorder, recurrent, Kai Gibbs M.D. unspecified 09/08/2019 E66.01 Morbid (severe) obesity due to excess Kai Gibbs M.D. calories 09/08/2019 M51.37 Other intervertebral disc degeneration, Kai Gibbs M.D. lumbosacral region 09/08/2019 M54.17 Radiculopathy, lumbosacral region Kai Gibbs M.D. 09/08/2019 M25.551 Pain in right hip Kai Gibbs M.D. 09/08/2019 R11.2 Nausea with vomiting, unspecified Kai Gibbs M.D. 09/08/2019 R10.13 Epigastric pain Kai Gibbs M.D. 09/08/2019 K80.34 Calculus of bile duct with chronic Kai Gibbs M.D. cholangitis without obstruction 09/08/2019 E55.9 Vitamin D deficiency, unspecified Kai Gibbs M.D. 09/08/2019 I45.10 Unspecified right bundle-branch block Kai Gibbs M.D. 09/08/2019 N20.0 Calculus of kidney Kai Gibbs M.D. 09/08/2019 G47.00 Insomnia, unspecified Kai Gibbs M.D. 09/08/2019 J31.2 Chronic pharyngitis Kai Gibbs M.D. 09/08/2019 K58.1 Irritable bowel syndrome with constipation Kai Gibbs M.D. 09/08/2019 Z79.899 Other long chain beamer (current) drug therapy Kai Gibbs M.D. 09/08/2019 K57.00 Diverticulitis of small intestine with Kai Gibbs M.D. perforation and abscess without bleeding 09/08/2019 K81.1 Chronic cholecystitis Kai Gibbs M.D. 08/12/2019 I10 Essential (primary) hypertension Kai Gibbs M.D. 08/12/2019 E78.2 Mixed hyperlipidemia Kai Gibbs M.D. 08/12/2019 K21.0 Gastro-esophageal reflux disease with Kai Gibbs M.D. esophagitis 08/12/2019 K30 Functional dyspepsia Kai Gibbs M.D. 08/12/2019 L20.9 Atopic dermatitis, unspecified Kai Gibbs M.D. 08/12/2019 J30.9 Allergic rhinitis, unspecified Kai Gibbs M.D. 08/12/2019 M10.9 Gout, unspecified Kai Gibbs M.D. 08/12/2019 G40.909 Epilepsy, unspecified, not intractable, Kai Gibbs M.D. without status epilepticus 08/12/2019 F41.9 Anxiety disorder, unspecified Kai Gibbs M.D. 08/12/2019 F33.9 Major depressive disorder, recurrent, Kai Gibbs M.D. unspecified 08/12/2019 E66.01 Morbid (severe) obesity due to excess Kai Gibbs M.D. calories 08/12/2019 M51.37 Other intervertebral disc degeneration, Kai Gibbs M.D. lumbosacral region 08/12/2019 M54.17 Radiculopathy, lumbosacral region Kai Gibbs M.D. 08/12/2019 M25.551 Pain in right hip Kai Gibbs M.D. 08/12/2019 R11.2 Nausea with vomiting, unspecified Kai Gibbs M.D. 08/12/2019 R10.13 Epigastric pain Kai Gibbs M.D. 08/12/2019 K80.34 Calculus of bile duct with chronic Kai Gibbs M.D. cholangitis without obstruction 08/12/2019 E55.9 Vitamin D deficiency, unspecified Kai Gibbs M.D. 08/12/2019 I45.10 Unspecified right bundle-branch block Kai Gibbs M.D. 08/12/2019 N20.0 Calculus of kidney Kai Gibbs M.D. 08/12/2019 G47.00 Insomnia, unspecified Kai Gibbs M.D. 08/12/2019 J31.2 Chronic pharyngitis Kai Gibbs M.D. 08/12/2019 K58.1 Irritable bowel syndrome with constipation Kai Gibbs M.D. 08/12/2019 Z79.899 Other long-term (current) drug therapy Kai Gibbs M.D. 07/29/2019 I10 Essential (primary) hypertension Kai Gibbs M.D. 07/29/2019 E78.2 Mixed hyperlipidemia Kai Gibbs M.D. 07/29/2019 K21.0 Gastro-esophageal reflux disease with Kai Gibbs M.D. esophagitis 07/29/2019 K30 Functional dyspepsia Kai Gibbs M.D. 07/29/2019 L20.9 Atopic dermatitis, unspecified Kai Gibbs M.D. 07/29/2019 J30.9 Allergic rhinitis, unspecified Kai Gibbs M.D. 07/29/2019 M10.9 Gout, unspecified Kai Gibbs M.D. 07/29/2019 G40.909 Epilepsy, unspecified, not intractable, Kai Gibbs M.D. without status epilepticus 07/29/2019 F41.9 Anxiety disorder, unspecified Kai Gibbs M.D. 07/29/2019 F33.9 Major depressive disorder, recurrent, Kai Gibbs M.D. unspecified 07/29/2019 E66.01 Morbid (severe) obesity due to excess Kai Gibbs M.D. calories 07/29/2019 M51.37 Other intervertebral disc degeneration, Kai Gibbs M.D. lumbosacral region 07/29/2019 M54.17 Radiculopathy, lumbosacral region Kai Gibbs M.D. 07/29/2019 M25.551 Pain in right hip Kai Gibbs M.D. 07/29/2019 R11.2 Nausea with vomiting, unspecified Kai Gibbs M.D. 07/29/2019 R10.13 Epigastric pain Kai Gibbs M.D. 07/29/2019 K80.34 Calculus of bile duct with chronic Kai Gibbs M.D. cholangitis without obstruction 07/29/2019 E55.9 Vitamin D deficiency, unspecified Kai Gibbs M.D. 07/29/2019 I45.10 Unspecified right bundle-branch block Kai Gibbs M.D. 07/29/2019 N20.0 Calculus of kidney Kai Gibbs M.D. 07/29/2019 G47.00 Insomnia, unspecified Kai Gibbs M.D. 07/29/2019 J31.2 Chronic pharyngitis Kai Gibbs M.D. 07/29/2019 K58.1 Irritable bowel syndrome with constipation Kai Gibbs M.D. 07/21/2019 I10 Essential (primary) hypertension Arash Duncan N.P. 07/21/2019 E78.2 Mixed hyperlipidemia Matthew Manriquez.PJacinda 07/21/2019 K21.0 Gastro-esophageal reflux disease with Arash Duncan N.P. esophagitis 07/21/2019 K30 Functional dyspepsia Matthew Manriquez.Iva 07/21/2019 L20.9 Atopic dermatitis, unspecified Matthew Manriquez.Iva 07/21/2019 J30.9 Allergic rhinitis, unspecified Arash Duncan, N.P. 07/21/2019 M10.9 Gout, unspecified Arash Duncan, N.P. 07/21/2019 G40.909 Epilepsy, unspecified, not intractable, Arash Duncan, N.P. without status epilepticus 07/21/2019 F41.9 Anxiety disorder, unspecified Arash Duncan, N.P. 07/21/2019 F33.9 Major depressive disorder, recurrent, Arash Duncan N.P. unspecified 07/21/2019 E66.01 Morbid (severe) obesity due to excess Arash Duncan, N.P. calories 07/21/2019 M51.37 Other intervertebral disc degeneration, Arash Duncan, N.P. lumbosacral region 07/21/2019 M54.17 Radiculopathy, lumbosacral region Arash Duncan, N.P. 07/21/2019 M25.551 Pain in right hip Arash Duncan N.P. 07/21/2019 R11.2 Nausea with vomiting, unspecified Arash Duncan, N.P. 07/21/2019 R10.13 Epigastric pain Arash Duncan, N.P. 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 07/21/2019 I45.10 Unspecified right bundle-branch block Arash Duncan, N.P. 07/21/2019 N20.0 Calculus of kidney Arash Duncan N.P. 07/21/2019 G47.00 Insomnia, unspecified Arash Duncan, N.P. 07/21/2019 J31.2 Chronic pharyngitis Arash Duncan, N.P. 07/21/2019 K58.1 Irritable bowel syndrome with constipation Arash Duncan N.P. 07/21/2019 M79.672 Pain in left foot Arash Duncan N.P. 07/08/2019 I10 Essential (primary) hypertension Kai Gibbs M.D. 07/08/2019 E78.2 Mixed hyperlipidemia Kai Gibbs M.D. 07/08/2019 K21.0 Gastro-esophageal reflux disease with Kai Gibbs M.D. esophagitis 07/08/2019 K30 Functional dyspepsia Kai Gibbs M.D. 07/08/2019 L20.9 Atopic dermatitis, unspecified Kai Gibbs M.D. 07/08/2019 J30.9 Allergic rhinitis, unspecified Kai Gibbs M.D. 07/08/2019 M10.9 Gout, unspecified Kai Gibbs M.D. 07/08/2019 G40.909 Epilepsy, unspecified, not intractable, Kai Gibbs M.D. without status epilepticus 07/08/2019 F41.9 Anxiety disorder, unspecified Kai Gibbs M.D. 07/08/2019 F33.9 Major depressive disorder, recurrent, Kai Gibbs M.D. unspecified 07/08/2019 E66.01 Morbid (severe) obesity due to excess Kai Gibbs M.D. calories 07/08/2019 M51.37 Other intervertebral disc degeneration, Kai Gibbs M.D. lumbosacral region 07/08/2019 M54.17 Radiculopathy, lumbosacral region Kai Gibbs M.D. 07/08/2019 M25.551 Pain in right hip Kai Gibbs M.D. 07/08/2019 R11.2 Nausea with vomiting, unspecified Kai Gibbs M.D. 07/08/2019 R10.13 Epigastric pain Kai Gibbs M.D. 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 07/08/2019 I45.10 Unspecified right bundle-branch block Kai Gibbs M.D. 07/08/2019 N20.0 Calculus of kidney Kai Gibbs M.D. 07/08/2019 G47.00 Insomnia, unspecified Kai Gibbs M.D. 07/08/2019 J31.2 Chronic pharyngitis Kai Gibbs M.D. 07/08/2019 K58.1 Irritable bowel syndrome with constipation Kai Gibbs M.D. 07/08/2019 M79.672 Pain in left foot Kai Gibbs M.D. 07/08/2019 Z23 Encounter for immunization Kai Gibbs M.D. 05/29/2019 I10 Essential (primary) hypertension Kai Gibbs M.D. 05/29/2019 E78.2 Mixed hyperlipidemia Kai Gibbs M.D. 05/29/2019 K21.0 Gastro-esophageal reflux disease with Kai Gibbs M.D. esophagitis 05/29/2019 K30 Functional dyspepsia Kai Gibbs M.D. 05/29/2019 L20.9 Atopic dermatitis, unspecified Kai Gibbs M.D. 05/29/2019 J30.9 Allergic rhinitis, unspecified Kai Gibbs M.D. 05/29/2019 M10.9 Gout, unspecified Kai Gibbs M.D. 05/29/2019 G40.909 Epilepsy, unspecified, not intractable, Kai Gibbs M.D. without status epilepticus 05/29/2019 F41.9 Anxiety disorder, unspecified Kai Gibbs M.D. 05/29/2019 F33.9 Major depressive disorder, recurrent, Kai Gibbs M.D. unspecified 05/29/2019 E66.01 Morbid (severe) obesity due to excess Kai Gibbs M.D. calories 05/29/2019 M51.37 Other intervertebral disc degeneration, Kai Gibbs M.D. lumbosacral region 05/29/2019 M54.17 Radiculopathy, lumbosacral region Kai Gibbs M.D. 05/29/2019 M25.551 Pain in right hip Kai Gibbs M.D. 05/29/2019 R11.2 Nausea with vomiting, unspecified Kai Gibbs M.D. 05/29/2019 R10.13 Epigastric pain Kai Gibbs M.D. 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 05/29/2019 I45.10 Unspecified right bundle-branch block Kai Gibbs M.D. 05/29/2019 N20.0 Calculus of kidney Kai Gibbs M.D. 05/29/2019 G47.00 Insomnia, unspecified Kai Gibbs M.D. 05/29/2019 J31.2 Chronic pharyngitis Kai Gibbs M.D. 05/29/2019 K58.1 Irritable bowel syndrome with constipation Kai Gibbs M.D. 05/13/2019 I10 Essential (primary) hypertension Kai Gibbs M.D. 05/13/2019 E78.2 Mixed hyperlipidemia Kai Gibbs M.D. 05/13/2019 K21.0 Gastro-esophageal reflux disease with aKi Gibbs M.D. esophagitis 05/13/2019 K30 Functional dyspepsia [...] 04/22/2019 J31.2 Chronic pharyngitis Kai Gibbs M.D. Plan of Treatment Future Appointment(s):10/20/2019 10:30 am - Arash Duncan N.P. at [facility] Functional Status Description No Information Available Mental Status Description No Information Available Referrals Refer to Dr Reason for Referral Status Appt Date Taisha Ojeda Closed [address] [facility] [address] [phone] Closed [facility] Neurology PT REQUESTING DR. WHEAT Closed [facility] [address] Floor [facility] [address] [phone]
--- OUTSIDE RECORDS SUMMARY | 2019-10-05 13:17 | XMS REPORT | Continuity of Care Document ---
:1975 External Reference #:[id number] Author Name Arash Duncan N.P. Address [address] [place] [address] [address] [place] [address] Care Team Providers Name Role Phone [facility] - Care Team Information Length Control Tester Mental Health Problems Active Problems Provider Date [...] Medications SIG Qnty Indications Ordering Provider Date Metoprolol Succinate 1 by mouth every 30tabs I10 Kai Gibbs, 2018 ER day M.D. 100mg Tablets ER 24HR Vimpat 1 tab by mouth G40.909 Kai Gibbs, 08/29/2019 200mg Tablets twice a M.D. day-Neurology Lorazepam 1 tab by mouth 30tabs G40.909 Kai Gibbs, 07/08/2019 2mg Tablets twice a day as M.D. needed after siezure -psych F41.9 Dicyclomine HCL by mouth twice a 120caps K21.0 [facility]rb[facility], 05/13/2019 10mg Capsules day-GI M.DJacinda K30 K58.1 Pantoprazole Sodium 1 by mouth twice 180tabs K21.0 [facility] God[facility], 2018 40mg a day M.D. Tablets K3Huy Ondansetron 1 tab by mouth 90tabs R11.2 [facility] God[facility], 02/10/2019 4mg Tablets every 4 hours as M.D. Dispers needed Carafate 1 tab by mouth 270tabs K21.0 [facility], 02/10/2019 1gm Tablets three times a day M.D. before meals K30 Oxycodone-Acetaminophen As needed Unknown 10-325mg Tablets Zoloft 1 Unknown 100mg Tablets Famotidine 1 Unknown 40mg Tablets Aptiom Take 2 Tablets G40.909 Unknown 800mg Tablets By Mouth Once Daily AT Night AT Bedtime Allopurinol 1 by mouth 90tabs M10.9 [facility] 100mg Tablets every day M., M.D. Loratadine 1 tab by mouth 90tabs J30.9 [facility] 10mg Tablets every day as M. M.D. needed History Medications Vimpat 1 tab by mouth twice G40.909 [facility] 08/12/2019 - 150mg Tablets a day-neurology Oniel Godfrey 08/29/2019 Citalopram 1 by mouth every day 30tabs F41.9 [facility] 07/21/2019 - Hydrobromide Bekah GodfreyDJacinda 07/28/2019 20mg Tablets Vimpat 1 tab by mouth twice G40.909 [facility] 04/22/2019 - 100mg Tablets a day-Neurology Oniel Godfrey 08/12/2019 Zonisamide 3 by mouth at G40.909 [facility] 04/22/2019 - 100mg bedtime-Psych Oniel Godfrey 08/29/2019 Capsules Immunizations CPT Code Status Date Vaccine Lot # [id number] Given 07/08/2019 Flu Virus Vaccine, Quadrivalent, Slit Virus, Im [id number] Use Vital Signs Date Vital Result Comment 09/22/2019 8:49am BP Systolic 138 mmHg BP Diastolic 65 mmHg Height 73 inches 6'1" Weight 287.00 lb BMI (Body Mass Index) 37.9 kg/m2 Heart Rate 77 /min Respiratory Rate 17 /min 09/08/2019 10:48am BP Systolic 125 mmHg BP Diastolic 70 mmHg Height 73 inches 6'1" Weight 282.00 lb BMI (Body Mass Index) 37.2 kg/m2 Heart Rate 83 /min Respiratory Rate 16 /min Results Test Acquired Date Facility Test Result H/L Range Note Laboratory test 08/12/2019 [facility] Ethyl Negative Normal 10 1, 2 finding Glucuronide ng/mL Gabapentin Negative ng/mL Normal 0.5 3 Tramadol Negative ng/mL Normal 0.5 4 THC-Delta-9 44.49 Positive I <SEE NOTE> ng/mL Abnormal 1 5 Oral Fluid Drug 08/12/2019 [facility] Amphetamine NEGATIVE Normal 50 Screen Barbiturate NEGATIVE Normal 20 Benzodiazepine NEGATIVE Normal 1.5 Cannabinoid POSITIVE Abnormal 1 Cocaine NEGATIVE Normal 5 Methadone NEGATIVE Normal 5 Methamphetamine NEGATIVE Normal 40 Opiate NEGATIVE Normal 10 Phencyclidine NEGATIVE Normal 1 6 Antidepressant PNL 08/12/2019 [facility] Amitriptyline Negative Normal 0.5 (Oral-LC/MS/MS ng/mL Clomipramine Negative ng/mL Normal 0.5 Desipramine Negative ng/mL Normal 0.5 Doxepin Negative ng/mL Normal 0.5 Fluoxetine Negative ng/mL Normal 0.5 Imipramine Negative ng/mL Normal 0.5 Nortriptyline Negative ng/mL Normal 0.5 Sertraline 1.10 Positive In <SEE NOTE> ng/mL Abnormal 0.5 7 Trimipramine Negative ng/mL Normal 0.5 8 Methadone Panel 08/12/2019 [facility] Methadone Negative ng/mL Normal 1 (Oral-LC/MS/MS) Eddp Negative ng/mL Normal 0.2 9 Opiate Panel 08/12/2019 [facility] 6-Olamide (Heroin Negative Normal 0.5 (Oral-LC/MS/MS) Metabolite) ng/mL Codeine Negative ng/mL Normal 0.5 Hydrocodone 1.12 Positive In <SEE NOTE> ng/mL Abnormal 0.5 10 Hydromorphone Negative ng/mL Normal 0.5 Morphine Negative ng/mL Normal 1 Oxycodone Negative ng/mL Normal 0.5 Oxymorphone Negative ng/mL Normal 0.5 11 Cocaine Panel 08/12/2019 [facility] Cocaine Negative ng/mL Normal 0.5 (Oral-LC/MS/MS Benzoylecgonine Negative ng/mL Normal 1 12 Buprenorphine PNL 08/12/2019 [facility] Buprenorphine Negative Normal 0.05 (Oral -LC/MS/MS) ng/mL Norbuprenorphine Negative ng/mL Normal 0.5 Naloxone Negative ng/mL Normal 0.1 13 Barbiturate PNL 08/12/2019 [facility] Butalbital Negative ng/mL Normal 10 (Oral-L C/MS/MS) Pentobarbital Negative ng/mL Normal 10 Phenobarbital Negative ng/mL Normal 10 Secobarbital Negative ng/mL Normal 10 14 Benzodiazepine PNL 08/12/2019 [facility] 7-Aminoclonazepam Negative Normal 0.2 (Oral-LC/MS/MS) ng/mL Alprazolam Negative ng/mL Normal 0.2 Clonazepam Negative ng/mL Normal 0.2 Diazepam Negative ng/mL Normal 0.2 Lorazepam Negative Inconsi <SEE NOTE> ng/mL Abnormal 0.2 15 Nordiazepam Negative ng/mL Normal 0.2 Oxazepam Negative ng/mL Normal 0.2 Temazepam Negative ng/mL Normal 0.2 Chlordiazepoxide Negative ng/mL Normal 0.2 Midazolam Negative ng/mL Normal 0.2 Prazepam Negative ng/mL Normal 0.2 Estazolam Negative ng/mL Normal 0.2 16 Amphetamine Panel 08/12/2019 [facility] Amphetamine Negative ng/ mL Normal 0.5 (Oral -LC/MS/MS) Methamphetamine Negative ng/mL Normal 0.5 Mda Negative ng/mL Normal 1 Mdea Negative ng/mL Normal 0.5 Mdma Negative ng/mL Normal 0.5 17 Oral [place] [facility] 08/12/2019 [facility] Comment: See Components Normal 18 Practice Laboratory test 05/26/2019 [facility] Surgical SEE RESULT 19 finding Pathology BELOW CBC Auto Diff 04/17/2019 [facility] White Blood 11.3 10^3/uL High 3.5 -1 [...] Blood Cells % 0.0 Laboratory test 04/17/2019 [facility] B-Type Natriuretic 90 pg/mL <= 100 finding Peptide BNP Comp Metabolic 04/17/2019 [facility] Sodium 128 mmol/L Low 135-145 Panel Potassium [...] Egfr Non- 118.4 >60 Egfr 143.3 >60 20 Laboratory test finding 04/17/2019 [facility] Alcohol < 10 mg/dL Normal <10 1 Prescribed Medications: Lorazepam (Lorazepam), Zonisamide (Zonisamide), ONDANSETRON, METOPROLOL, PANTOPRAZOLE 2 Prescribed Medications: Lorazepam (Lorazepam), Zonisamide (Zonisamide), ONDANSETRON, METOPROLOL, PANTOPRAZOLE 3 Prescribed Medications: Lorazepam (Lorazepam), Zonisamide (Zonisamide), ONDANSETRON, METOPROLOL, PANTOPRAZOLE 4 Prescribed Medications: Lorazepam (Lorazepam), Zonisamide (Zonisamide), ONDANSETRON, METOPROLOL, PANTOPRAZOLE 5 44.49 Positive Inconsistent Prescribed Medications: Lorazepam (Lorazepam), Zonisamide (Zonisamide), ONDANSETRON, METOPROLOL, PANTOPRAZOLE 6 Prescribed Medications: Lorazepam (Lorazepam), Zonisamide (Zonisamide), ONDANSETRON, METOPROLOL, PANTOPRAZOLE 7 1.10 Positive Inconsistent 8 Prescribed Medications: Lorazepam (Lorazepam), Zonisamide (Zonisamide), ONDANSETRON, METOPROLOL, PANTOPRAZOLE 9 Prescribed Medications: Lorazepam (Lorazepam), Zonisamide (Zonisamide), ONDANSETRON, METOPROLOL, PANTOPRAZOLE 10 1.12 Positive Inconsistent 11 Prescribed Medications: Lorazepam (Lorazepam), Zonisamide (Zonisamide), ONDANSETRON, METOPROLOL, PANTOPRAZOLE 12 Prescribed Medications: Lorazepam (Lorazepam), Zonisamide (Zonisamide), ONDANSETRON, METOPROLOL, PANTOPRAZOLE 13 Prescribed Medications: Lorazepam (Lorazepam), Zonisamide (Zonisamide), ONDANSETRON, METOPROLOL, PANTOPRAZOLE 14 Prescribed Medications: Lorazepam (Lorazepam), Zonisamide (Zonisamide), ONDANSETRON, METOPROLOL, PANTOPRAZOLE 15 Negative Inconsistent 16 Prescribed Medications: Lorazepam (Lorazepam), Zonisamide (Zonisamide), ONDANSETRON, METOPROLOL, PANTOPRAZOLE 17 Prescribed Medications: Lorazepam (Lorazepam), Zonisamide (Zonisamide), ONDANSETRON, METOPROLOL, PANTOPRAZOLE 18 Prescribed Medications: Lorazepam (Lorazepam), Zonisamide (Zonisamide), ONDANSETRON, METOPROLOL, PANTOPRAZOLE 19 SEE RESULT BELOW Name: JONEL LAW : [address]: Carlos Knapp MD Acct: [id number] Unit: [id number] AGE: 43 Location: ENDO Re05/26/19 SEX: M Status: DEP REF SPEC: [id number] ESE: 05/26/19-[address] [facility] [address]: Carlos Knapp MD REQ: [id number] RECD: 05/26/19 STATUS: ZEINAB HENRIQUEZ DR: Kai [...] 1223 END OF REPORT DEPARTMENT OF PATHOLOGY, [address] [place] [address] Juan Skinner M.D. Director [facility] # [id number] 20 Because ethnic data is not always readily [...] Date Location Provider Dx Diagnosis Office Visit 09/22/2019 [facility] Arash Duncan, I10 Essential ( primary) 9:15a N.P. hypertension E78.2 Mixed hyperlipidemia K21.0 Gastro-esophageal [...] Irritable bowel syndrome with constipation Z79.899 Other jail (current) drug therapy K57.00 Dvtrcli of sm int w perforation and abscess w/o bleeding K81.1 Chronic cholecystitis M25.511 Pain in right shoulder M79.641 Pain in right hand Office Visit 09/08/2019 10:45a [place] [facility] Kai Gibbs I10 [place] ( primary) [...] bowel syndrome with constipation Z79.899 Other long term care phlebotomist (current) drug therapy K57.00 Dvtrcli of sm int w perforation and abscess w/o bleeding K81.1 Chronic cholecystitis Office Visit 08/12/2019 8:45a [place] [facility] Kai Gibbs I10 Essential ( primary) [...] bowel syndrome with constipation Z79.899 Other long term care phlebotomist (current) drug therapy Office Visit 07/21/2019 10:15a [place] [facility] Arash Duncan, I10 Essential (primary) N.P. [...] in left foot Office Visit 07/08/2019 11:00a [place] [facility] Kai Gibbs I10 Essential ( primary) [...] Encounter for immunization Office Visit 05/13/2019 11:00a [place] [facility] Kai Gibbs I10 [place] ( primary) [...] syndrome with constipation Office Visit 04/22/2019 10:45a [place] [facility] Kai Gibbs I10 Essential ( primary) [...] Chronic pharyngitis Assessments Date Code Description Provider 09/22/2019 I10 Essential (primary) hypertension Arash Duncan, [...] Duncan, N.P. 09/22/2019 G47.00 Insomnia, unspecified Arash Duncan, N.P. 09/22/2019 J31.2 Chronic pharyngitis Arash Duncan, N.P. 09/22/2019 K58.1 Irritable bowel syndrome with constipation Arash Duncan, N.P. 09/22/2019 Z79.899 Other long term care phlebotomist (current) drug therapy Arash Duncan, N.P. 09/22/2019 K57.00 Diverticulitis of small intestine with Arash Duncan, N.P. perforation and abscess without bleeding 09/22/2019 K81.1 Chronic cholecystitis Arash Duncan, N.P. 09/22/2019 M25.511 Pain in right shoulder Arash Duncan, N.P. 09/22/2019 M79.641 Pain in right hand Arash Duncan, N.P. 09/08/2019 I10 Essential (primary) hypertension Kai Gibbs M.D. 09/08/2019 E78.2 Mixed hyperlipidemia Kai Gibbs M.D. 09/08/2019 K21.0 Gastro-esophageal reflux disease with Kai Gibbs M.D. esophagitis 09/08/2019 K30 Functional dyspepsia Kai Gibbs M.D. 09/08/2019 L20.9 Atopic dermatitis, unspecified Kai Gibbs M.D. 09/08/2019 J30.9 Allergic rhinitis, unspecified Kai Gibbs M.D. 09/08/2019 M10.9 Gout, unspecified Kai Gibbs M.D. 09/08/2019 G40.909 Epilepsy, unspecified, not intractable, Kai Gibbs M.D. without status epilepticus 09/08/2019 F41.9 Anxiety disorder, unspecified Kai Gibbs M.D. 09/08/2019 F33.9 Major depressive disorder, recurrent, [...] Kai Gibbs M.D. 09/08/2019 Z79.899 Other long term care phlebotomist (current) drug therapy Kai Gibbs M.D. 09/08/2019 [...] constipation Kai Gibbs M.D. 08/12/2019 Z79.899 Other jail (current) drug therapy Kai Gibbs M.D. 07/29/2019 [...] M.D. 07/21/2019 I10 Essential (primary) hypertension Arash Duncan, N.P. 07/21/2019 E78.2 Mixed hyperlipidemia Arash Duncan, N.P. 07/21/2019 K21.0 Gastro-esophageal reflux disease with Arash Duncan, N.P. esophagitis 07/21/2019 K30 Functional dyspepsia Arash Duncan, N.P. 07/21/2019 L20.9 Atopic dermatitis, unspecified Arash Duncan, N.P. 07/21/2019 J30.9 Allergic rhinitis, unspecified Arash Duncan, N.P. 07/21/2019 M10.9 Gout, unspecified Arash Duncan, N.P. 07/21/2019 G40.909 Epilepsy, unspecified, not intractable, Arash Duncan, N.P. without status epilepticus 07/21/2019 F41.9 Anxiety disorder, unspecified Arash Duncan, N.P. 07/21/2019 F33.9 Major depressive disorder, recurrent, Arash Duncan, N.P. unspecified 07/21/2019 E66.01 Morbid (severe) obesity due to excess Arash Duncan, N.P. calories 07/21/2019 M51.37 Other intervertebral disc degeneration, Arash Duncan, N.P. lumbosacral region 07/21/2019 M54.17 Radiculopathy, lumbosacral region Arash Duncan, N.P. 07/21/2019 M25.551 Pain in right hip Arash Duncan, N.P. 07/21/2019 R11.2 Nausea with vomiting, unspecified Arash Duncan, N.P. 07/21/2019 R10.13 Epigastric pain Arash Duncan, N.P. 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 07/21/2019 I45.10 Unspecified right bundle-branch block Matthew Manriquez.PJacinda 07/21/2019 N20.0 Calculus of kidney Matthew Manriquez.PJacinda 07/21/2019 G47.00 Insomnia, unspecified Matthew Manriquez.PJacinda 07/21/2019 J31.2 Chronic pharyngitis Matthew Manriquez.PJacinda 07/21/2019 K58.1 Irritable bowel syndrome with constipation Arash Duncan N.P. 07/21/2019 M79.672 Pain in left foot Arash Duncan N.PJacinda 07/08/2019 I10 Essential (primary) hypertension Kai Gibbs [...] Gibbs M.D. 05/29/2019 R11.2 Nausea with vomiting, unspecKai Webster M.D. 05/29/2019 R10.13 Epigastric pain Kai Gibbs M.D. 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 05/29/2019 I45.10 Unspecified right bundle-branch block Kai Gibsb M.D. 05/29/2019 N20.0 Calculus of kidney Kai [...] Kai Gibbs M.D. Plan of Treatment Future Appointment(s):09/26/2019 10:00 am - Arash Duncan N.P. at [facility] Functional Status Description No Information Available Mental Status Description No Information Available Referrals Refer to Dr Reason for Referral Status Appt Date Closed [facility] Neurology PT REQUESTING DR. WHEAT Closed [place] [address] [facility] [place] [address] Floor [facility] [address] [phone]
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
--- OUTSIDE RECORDS SUMMARY | 2019-10-05 13:17 | XMS REPORT | Continuity of Care Document ---
:1975 External Reference #:[id number] Author Name Rafael Parada M.D. 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 [phone] Problems Active Problems Provider Date Chronic sinusitis [...] Unknown 100mg Capsules Vimpat Unknown 200mg Tablets Famotidine 1 by mouth every Unknown 20mg Tablets day Lorazepam one tab by mouth Unknown 1mg Tablets at bedtime as needed sleep Immunizations Description No Information Available Vital Signs Date Vital Result Comment 09/16/2019 9:33am Weight 289.00 lb Height 68 inches 5'8" BMI (Body Mass Index) 43.9 kg/m2 Heart Rate 75 /min O2 % BldC Oximetry 99 % Body Temperature 96.9 F Pain Level 0 08/21/2019 3:14pm Weight 289.00 lb Height 68 inches 5'8" BMI (Body Mass Index) 43.9 kg/m2 BP Systolic 141 mmHg BP Diastolic 88 mmHg Heart Rate 73 /min O2 % BldC Oximetry 98 % Body Temperature 98.1 F Pain Level 0 Results Description No Information Available Procedures Date Code Description Status 08/28/2019 83147 Sleep Staging 4Or More Para Completed 08/21/2019 48564 Nasal Endoscopy, Diag. Completed Medical Devices Description No Information Available Encounters Type Date Location Provider Dx Diagnosis Office Visit 08/21/2019 3:15p Main Office Rafael Parada M.D. R06.83 Snoring G47.9 Sleep disorder, unspecified J31.0 Chronic rhinitis Office Visit 05/13/2019 1:00p Main Office Fawn Shelton32.9 Chronic sinusitis, CHEL Meraz unspecified Assessments Date Code Description Provider 08/28/2019 G47.10 Hypersomnia, unspecified Sleep Lab - Naun Burkett MD 08/21/2019 R06.83 Snoring Rafael Parada M.D. 08/21/2019 G47.9 Sleep disorder, unspecified Rafael Parada M.D. 08/21/2019 J31.0 Chronic rhinitis Rafael Parada M.D. 05/13/2019 J32.9 Chronic sinusitis, unspecified Fawn Meraz NP Plan of Treatment No Information Available Functional Status Description No Information Available Mental Status Description No Information Available Referrals Description No Information Available
--- OUTSIDE RECORDS SUMMARY | 2019-10-05 13:17 | XMS REPORT | Summary of Care ---
:1975 Author Organization [facility] Address [address] [place] [address] Care Team Providers Name Role Phone Kai Gibbs MD Primary Care Provider Reason for Referral Consultation (Routine) Status Reason Specialty Diagnoses / Referred By Referred To Procedures Contact Contact Open Specialty Neurology Diagnoses Diverticulitis of large intestine with perforation without bleeding Ramona Dailey, Lukas, Services Required V, [employer] [address] [facility] [address] [place] [phone] Phone: Fax: Email: [phone] [email or web address] Email: [email or web address] Scheduling Instructions Before October colonoscopy and surgery Reason for Visit Reason Comments Follow-up perforated diverticulitis Encounter Details Date Type Department Care Team Description 09/11/2019 Office Visit SURGICAL SPECIALTIES Mark Montgomery Diverticulitis of large [address] Manuel Stout MD intestine with Lower Level [address] perforation without [place], [place] [address] bleeding (Primary Dx) [address] [place], [place] [phone] [address] [phone] Allergies Active Allergy Reactions Severity Noted Date Comments Penicillins Rash Medium 05/05/2019 documented as of this encounter (statuses as of 09/11/2019) Medications Medication Sig Dispensed Refills Start Date [...] tablet mouth Two times daily before meals ranitidine (ZANTAC) 150 Take 150 mg by 0 Active MG tablet mouth Two Times Daily sucralfate (CARAFATE) 1 Take 1 g by 0 Active g tablet mouth Three times daily before meals 30 to 60 minutes before meals zonisamide (ZONEGRAN) Take 300 mg by 0 Active 100 MG capsule mouth nightly tizanidine (ZANAFLEX) 2 Take 2 mg by 0 Active MG tablet mouth every 8 (eight) hours as needed HYDROcodone-acetaminoph Take 1 tablet 0 Active en [...] LORazepam 2 MG Oral Take 1 tablet by 12 tablet 0 07/24/2019 Active Tablet (ATIVAN) mouth as needed for Anxiety, Max Daily Dose: 2 mg Famotidine 20 MG Oral Take 40 mg by mouth 0 Active Tablet (PEPCID) daily Acetaminophen 325 MG Oral Take 2 tablets by 30 tablet 0 09/03/20192019 Active Tablet mouth every 6 (six) hours for 10 days Docusate Sodium 100 MG Take 1 capsule by 20 capsule 0 09/03/20192019 Active Oral Capsule (COLACE) mouth Two Times Daily for 10 days Ibuprofen 600 MG Oral Take 1 tablet by 30 tablet 0 09/03/2019 09/13/2019 Active Tablet (ADVIL,MOTRIN) mouth every 6 (six) hours as needed for up to 10 days Lacosamide 200 MG Oral Take 1 tablet by 60 tablet 5 09/04/2019 Active Tablet (VIMPAT) mouth Two Times Daily , Max Daily Dose: 400 mg Ondansetron 4 MG Oral 0 08/28/2019 Active Tablet Disintegrating (ZOFRAN-ODT) oxyCODONE-Acetaminophen 0 08/12/2019 Active 10-325 MG Oral Tablet (PERCOCET) PEG Take 4,000 mLs by 4000 mL 0 09/11/2019 09/11/2019 Active 9597-NVd-VmIar-NaCl-NaSul mouth once for 1 f 236 GM Oral Solution doseTake as ordered Reconstituted (NewsCredYTELY) before surgery Neomycin Sulfate 500 MG Take 2 tabs at 1 6 tablet 0 09/11/2019 Active Oral Tablet (MYCIFRADIN) pm, 2 pm, and 11 pm the day before surgery metroNIDAZOLE 500 MG Oral Take 1 tab at 1 pm, 3 tablet 0 09/11/2019 Active Tablet (FLAGYL) 2 pm, and 11 pm the day before surgery documented as of this encounter (statuses as of 09/11/2019) Active Problems Problem Noted Date Diverticulitis large intestine 08/31/2019 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 documented as of this encounter (statuses as of 09/11/2019) Social History Tobacco Use Types Packs/Day Years [...] Sign Reading Time Taken Comments Blood Pressure 150/96 09/11/2019 10:21 AM EST Pulse 72 09/11/2019 10:21 AM EST Temperature 8.3 09/11/2019 10:21 AM EST C (46.9 F) Respiratory Rate 18 09/11/2019 10:21 AM EST Oxygen Saturation 99% 09/11/2019 10:21 AM EST Inhaled Oxygen Concentration - - Weight 132 kg (291 lb) 09/11/2019 10:21 AM EST Height - - Body Mass Index 38.39 08/31/2019 12:00 AM EST documented in this encounter Patient Instructions Patient InstructionsJazz Mansfield RN - 09/11/2019 10:00 AM ESTPatients having a bowel prep may have: Full liquid diet the afternoon/evening before surgery Begin full liquid diet at time of prep and transition to clear liquids only around 10 p.m. the night before surgery Clear liquids until time of arrival at the hospital Ensure Clear Pre-Surgery Drink: You will be provided with a bottle of Ensure Clear Pre-Surgery Drink. Drink one hour prior to the time that you are scheduled to arrive at the hospital. Finish this drink within 15 minutes. Please use Hibiclens (soap) for three consecutive showers, including the morning of your procedure, the evening before your procedure and the evening before that. Please bring the surgical booklet with you to all future appointments. A colon prep will be sent into your pharmacy prior to your procedure. Please call [phone] with any questions or concerns. documented in this encounter Progress Notes Mark Montgomery MD - 09/11/2019 10:00 AM ESTStaff Attestation/Addendum: Mr. Law has resolved this episode of sigmoid diverticulitis, and has symptomatic cholelithiasis. As he is quite young, has had several episodes (7 total, 3 requiring admission), and has some concern that he is progressing toward stenosis in his colon, I feel he is a reasonable candidate for lap sigmoid colectomy and lap cholecystectomy. The patient was advised about the surgical risks, including bleeding, infection, injury to other organs, need for additional surgery, irregular heartbeat, heart attack, pneumonia, DVT/PE, and . The patient consents to surgery. As noted, he will be ERAS, reduced fasting, carb drink, mechanical and PO ATB bowel prep. We will also plan to perform colonoscopy, hopefully the day prior to surgery. Based on the timing of his last event, starting on 09/01, we likely will be looking at a date in late October for colonoscopy and surgery. He has eqvftvklz-cu-whglmim seizures, and is managed at [facility]. I recommend that he get clearance from his neurologist. He will also need PAT. We will need to clarify with anesthesia to determine if he needs his colonoscopy under MAC due to seizure disorder. I directly interviewed the patient, performed martinez portions of the examination, personally reviewed pertinent ancillary data/imaging, and supervised the martinez medical decision-making/plan of care. I agreewith the assessment, meds, and plan proposed by resident, unless mentioned above in this attending note. Mark Montgomery MD 09/11/19 9:36 PM Wood Pimentel MD - 09/11/2019 10:00 AM EST Subjective: Patient ID: Jonel Law is a 44 y.o. male. The patient is a 44 year old M with recent hospitalization for acute perforated diverticulitis (31-08-25) which was managed nonoperatively with ceftriaxone and flagyl. This was his 4th major episodeover the past 7 years, all of which have been managed nonoperatively. He was discharged with an additional 3 day course of PO antibiotics which he completed without difficulty. Overall he has done wellsince returning home. He complains of mild lower abdominal pain which generally is improved since his admission. He continues to have 2-3 soft formed stools daily that he describes as being "pencil-thin," which has been his baseline for the past year. He is tolerating PO intake without nausea or emesis. Of note, US performed during that admission demonstrated cholelithiasis without cholecystitis. He complains of persistent episodes of RUQ abdominal pain after meals. This has been ongoing for approximately 1 year. Upper endoscopies have been performed and were unable to identify an etiology of his pain. 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 Jonel has Anxiety with depression; Cryptogenic localization-related epilepsy; and Diverticulitis large intestine on their problem list. Jonel has a past surgical history that includes Nasal polyp excision (Bilateral ) and Tympanostomy tube placement. His family history includes Arthritis in his father, maternal grandfather, maternal grandmother, mother, paternal grandfather, paternal grandmother, and sister; Depression in his sister; Drug abuse in his brother; Glaucoma in his mother; Hyperlipidemia in his father; Hypertension in his father. Jonel reports that he quit smoking about 4 years ago. His smoking use included cigarettes. He has a1.75 pack-year smoking history. He has never used smokeless tobacco. He reports current drug use. Frequency: 7.00 times per week. Drug: Marijuana. He reports that he does not drink alcohol. Jonel has a current medication list which includes the following prescription(s) : acetaminophen (tylenol) tablet, allopurinol, dicyclomine, docusate sodium, eslicarbazepine, famotidine, ibuprofen, lacosamide, loratadine, lorazepam, magnesium, metoprolol, pantoprazole, sertraline, sucralfate, hydrocodone- acetaminophen, ranitidine, tizanidine, and zonisamide. Current Outpatient Medications on File Prior to Visit Medication Sig Dispense Refill Acetaminophen 325 MG Oral Tablet Take 2 tablets by mouth every 6 (six) hours for 10 days 30 tablet 0 allopurinol (ZYLOPRIM) 100 MG tablet Take 100 mg by mouth daily Dicyclomine HCl 10 MG Oral Capsule (BENTYL) Take 10 mg by mouth Two Times Daily Docusate Sodium 100 MG Oral Capsule (COLACE) Take 1 capsule by mouth Two Times Daily for 10 days 20 capsule 0 eslicarbazepine (APTIOM) 800 MG tablet Take 1,600 mg by mouth nightly Famotidine 20 MG Oral Tablet (PEPCID) Take 40 mg by mouth daily Ibuprofen 600 MG Oral Tablet (ADVIL,MOTRIN) Take 1 tablet by mouth every 6 (six) hours as needed for up to 10 days 30 tablet 0 Lacosamide 200 MG Oral Tablet (VIMPAT) Take 1 tablet by mouth Two Times Daily , Max Daily Dose: 400 mg 60 tablet 5 loratadine (CLARITIN) 10 MG tablet Take 10 mg by mouth daily LORazepam 2 MG Oral Tablet (ATIVAN) Take 1 tablet by mouth as needed for Anxiety, Max Daily Dose: 2 mg 12 tablet 0 Magnesium 400 MG Oral Tablet Take 400 mg by mouth daily 30 tablet 5 metoprolol (LOPRESSOR) 100 MG tablet Take 1 tablet by mouth daily pantoprazole (PROTONIX) 40 MG tablet Take 40 mg by mouth Two times daily before meals Sertraline HCl 50 MG Oral Tablet (ZOLOFT) Take 1 tablet by mouth daily ( Patient taking differently: Take 100 mg by mouth daily ) 30 tablet 5 sucralfate (CARAFATE) 1 g tablet Take 1 g by mouth Three times daily before meals 30 to 60 minutes before meals HYDROcodone-acetaminophen (LORTAB) 5-325 MG per tablet Take 1 tablet by mouth every 8 (eight)hours as needed for Pain ranitidine (ZANTAC) 150 MG tablet Take 150 mg by mouth Two Times Daily tizanidine (ZANAFLEX) 2 MG tablet Take 2 mg by mouth every 8 (eight) hours as needed zonisamide (ZONEGRAN) 100 MG capsule Take 300 mg by mouth nightly No current facility-administered medications on file prior to visit. Jonel is allergic to penicillins. Review of Systems Constitutional: Positive for fatigue. Negative for activity change, chills and fever. HENT: Negative. Eyes: Negative. Respiratory: Negative. Negative for chest tightness and shortness of breath. Cardiovascular: Negative. Negative for chest pain. Gastrointestinal: Positive for abdominal pain. Negative for abdominal distention , blood in stool, diarrhea, nausea and vomiting. Endocrine: Negative. Genitourinary: Negative for difficulty urinating. Musculoskeletal: Negative. Skin: Negative. Neurological: Positive for seizures. Negative for dizziness, syncope, weakness, light-headedness, numbness and headaches. Psychiatric/Behavioral: Negative. All other systems reviewed and are negative. Objective: Vitals: 09/11/19 1021 BP: (!) 150/96 Pulse: 72 Resp: 18 Temp: (!) 8.3 C SpO2: 99% Physical Exam Constitutional: Appearance: Normal appearance. He is obese. HENT: Head: Normocephalic. Nose: Nose normal. Mouth/Throat: Mouth: Mucous membranes are moist. Eyes: Extraocular Movements: Extraocular movements intact. Conjunctiva/sclera: Conjunctivae normal. Neck: Musculoskeletal: Normal range of motion. Cardiovascular: Rate and Rhythm: Normal rate and regular rhythm. Pulses: Normal pulses. Pulmonary: Effort: Pulmonary effort is normal. Abdominal: General: Abdomen is flat. There is no distension. Palpations: Abdomen is soft. There is no mass. Tenderness: There is abdominal tenderness. There is no rebound. Hernia: No hernia is present. Comments: Minimally TTP to deep palpation in the LLQ, RLQ, and RUQ. No rebound or guarding noted.No masses appreciated. Musculoskeletal: Normal range of motion. Skin: General: Skin is warm and dry. Neurological: General: No focal deficit present. Mental Status: He is alert and oriented to person, place, and time. Mental status is at baseline. Psychiatric: Mood and Affect: Mood normal. Assessment: 44 year old male with recent history of perforated diverticulitis managed nonoperatively. This is Mr. Law's 4th major episode of diverticulitis over the previous 7 years or so, and he has experienced several more minor episodes of diverticulitis in between these episodes. He reports that over the past year his stools have been persistently soft and have been "pencil-thin." Given the frequency of his episodes and the likelihood of ongoing attacks, we discussed at length surgical options, including elective sigmoid colectomy. He is interested in proceeding with this. At the same time we will planto perform a cholecystectomy for symptomatic cholelithiasis. Risks of these procedures were discussed at length with Mr. Law who agrees to proceed. Preoperatively we will plan to perform a colonoscopy the day prior to our planned colectomy which will be performed with ERAS. Plan: - Will plan for preoperative colonoscopy and sigmoid colectomy to be performed 6 weeks after more recent attack (approximately week of October 13) - Patient eligible for ERAS protocol, reduced fast, carb drink - At the time of colectomy we will perform cholecystectomy for biliary colic - Patient will require PAT - Will discuss appropriateness of general anesthesia for colonoscopy given seizure disorder - Will request preoperative evaluation by neurology given seizure disorder - Will cancel tomorrow's ACS clinic appointment Wood Prasad MD, PGY-3 Department of Surgery [phone] (pager) documented in this encounter Plan of Treatment Date Type Specialty Care Team Description 10/17/2019 Office Visit Neurology Lukas Pereira MD [address] [place] [address] [phone] Name Type Priority Associated Diagnoses Order Schedule Basic Metabolic Lab Routine Diverticulitis of large 1 Occurrences Panel intestine with starting 09/11/2019 perforation without until 03/11/2020 bleeding CBC Lab Routine Diverticulitis of large 1 Occurrences intestine with starting 09/11/2019 perforation without until 03/11/2020 bleeding Type and Screen Blood Bank Routine Diverticulitis of large 1 Occurrences intestine with starting 09/11/2019 perforation without until 03/11/2020 bleeding Name Type Priority Associated Diagnoses Order Schedule Referral for Surgical Outpatient Routine Diverticulitis of Ordered: Risk Stratification Referral large intestine with 09/11/2019 perforation without bleeding Health Maintenance Due Date Last Done Comments [...] Years) topic documented as of this encounter Results Not on filedocumented in this encounter Visit Diagnoses Diagnosis Diverticulitis of large intestine with perforation without bleeding - Primary documented in this encounter
--- OUTSIDE RECORDS SUMMARY | 2019-10-05 13:17 | XMS REPORT ---
:1975 Author Organization [facility] Care Team Providers Name Role Phone Virgilio Youssef Primary Care Physician Unavailable Allergies, Adverse Reactions, Alerts Allergy Code CodeSystem Reaction Severity Criticality Status Start Substance Date Moderate Medications Medication Medication Medication Start Stop Route Dose Status Fill Code CodeSystem Date Date Instructions RxNorm Problems Problem Name Code CodeSystem Alternate Alternate Start End Status Narrative Code CodeSystem Date Date Depressive 24364243 SNOMED-CT 2018-09 Active episode, 2-11 unspecified Obesity, 15880658 SNOMED-CT 2018-09 Active unspecified 1-20 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, 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 Unspecified [id number] SNOMED-CT 2018-09 Active anxiety -07 disorder Relevant diagnostic tests/laboratory data Narrative No Information Procedures Procedure Code CodeSystem Target Date of Status Service Device Device Device Name Site Procedure Delivery Code Name UID Location Psychotherap 274142 SNOMED-CT () 2019-07-23 complete Mental y, 45 04 d Health- minutes with [address], [id number] [id number] Psychotherap [id number] SNOMED-CT () 2019-07-31 complete Mental y, 45 04 d Health- minutes with [address], [phone] [id number] Psychotherap [id number] SNOMED-CT () 2019-08-06 complete Mental y, 45 04 d Health- minutes with [address], [id number] SNOMED-CT () 2019-07-17 complete Mental d Health- [address], [phone] Psychotherap 176731 SNOMED-CT () 2019-08-13 complete Mental y, 45 04 d Health- minutes with [facility] patient [address], [id number] [phone] Psychotherap 375309 SNOMED-CT () 2019-08-20 complete Mental y, 45 04 d Health- minutes with [facility] patient [address], [id number] Psychiatric [id number] SNOMED-CT () 2019-08-18 complete Mental diagnostic 85 d Health- evaluation [facility] with [facility] services [address] [place] [address], [phone] Psychotherap [id number] SNOMED-CT () 2019-08-27 complete Mental y, 45 04 d Health- minutes with [address], [phone] Encounters/Encounter Diagnoses Encounter Name Encounter Diagnosis Diagnosis Diagnosis Date of Service Code Code Name CodeSystem Diagnosis Delivery Location Psychotherapy - 64731 [id number] Depressive SNOMED-CT 2019-08-27 Behavioral Individual 30 episode, Health min unspecified Clinic [address] [place] [address], [phone] Vital Signs No Information Social History Element Description Description Start End Code CodeSystem AdditionalInfo Date Date SexAssignedAtBirth Male 1975-0 M AdministrativeGender 9-20 Hospital Discharge Instructions Reason For Referral Medical Equipment FDA Assessments
--- OUTSIDE RECORDS SUMMARY | 2019-10-05 13:17 | XMS REPORT | Continuity of Care Document ---
:1975 External Reference #:[id number] Author Name Patricia Christine, [facility] Address [address] [place] [id number] Care Team Providers Name Role Phone Kai Gibbs M.D. 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 DO Not Exceed 2 Per 24Hours Oxycodone-Acetaminophe Take 1 To 2 Unknown n Tablets By Mouth 10-325mg Tablets Every 4 To 6 Hours as Needed For Severe Pain . DO Not Exceed 2 Per 24 Hours Gavilyte-G Drink 4000MLS By Unknown 236gm Solution Mouth Once as Rec Ordered Before Surgery Neomycin Sulfate Take 2 Tablets By Unknown 500mg Mouth AT 1PM 2PM Tablets And 11PM The Day Before Surgery Ibuprofen Take 1 Tablet By Unknown 600mg Tablets Mouth Every 6 Hours as Needed For Up To 10 Days Sertraline HCL Unknown 100mg Tablets Famotidine Take 1 Tablet By Unknown 40mg Tablets Mouth Once Daily Vimpat Take 1 Tablet By Unknown 200mg Tablets Mouth Twice Daily . DO Not Exceed 2 Per 24 Hours AptJimmie Baca, 800mg Tablets Immunizations Description No Information Available Vital Signs Date Vital Result Comment 09/23/2019 2:16pm BP Systolic 140 mmHg BP Diastolic 91 mmHg Body Temperature 96.9 F Heart Rate 66 /min Height 71.5 inches 5'11.50" Weight 294.00 lb BMI (Body Mass Index) 40.4 kg/m2 BSA (Body Surface Area) 2.50 m2 [place] body weight in kilograms 79 kg O2 % BldC Oximetry 98 % 02/11/2019 11:23am BP Systolic 139 mmHg BP Diastolic 95 mmHg Heart Rate 64 /min Respiratory Rate 14 /min Height 72 inches 6'0" Weight 298.00 lb BMI (Body Mass Index) 40.4 kg/m2 BSA (Body Surface Area) 2.52 m2 [place] body weight in kilograms 81 kg Results Test Acquired Date Facility Test Result H/L Range Note Xray 09/23/2019 [facility] - Orthopedic RMP, Knee, RT, < pending> [address] [place] [address] Obliques, 4 View [phone] (Supine) Procedures Date Code Description Status 09/23/2019 28662 X-Ray Knee Complete W/Obliques & Tunnel And/Or Standing Completed Views 09/23/2019 34973 Fracture-closed finger or thumb Completed Medical Devices Description No Information Available Encounters Type Date Location Provider Dx Diagnosis Office Visit 09/23/2019 [facility] Patricia Christine M25.561 Pain in right 2:15p S., RPAC knee S62.664A Nondisp fx of distal phalanx of right ring finger, init Assessments Date Code Description Provider 09/23/2019 M25.561 Pain in right knee Patricia Christine RPAC 09/23/2019 S62.664A Nondisplaced fracture of distal phalanx Patricia Christine RPAC of right ring finger, initial encounter for closed fracture Plan of Treatment Future Appointment(s):10/01/2019 2:15 pm - Patricia Christine RPAC at Orthopa[facility] Jcvlmi4509/23/2019 - [facility] in right kneeS62.664A Nondisplaced fracture of distal phalanx of right ring finger, initial encounter for closed fracture Functional Status Description No Information Available Mental Status Description No Information Available Referrals Description No Information Available
--- OUTSIDE RECORDS SUMMARY | 2019-10-05 13:18 | XMS REPORT | Continuity of Care Document ---
:1975 External Reference #:[id number] Author Name Kai Gibbs M.D. Address [address] [place] [address] [address] [place] [address] Care Team Providers Name Role Phone [facility] - Care Team Information Cat Tender [phone] Mental Health Problems Active Problems Provider Date [...] Medications SIG Qnty Indications Ordering Provider Date Vimpat 1 tab by mouth G40.909 Kai Gibbs, 08/12/2019 150mg Tablets twice a M.D. day-neurology Lorazepam 1 tab by mouth 30tabs G40.909 Kai Gibbs, 07/08/2019 2mg Tablets twice a day as M.D. needed after siezure -psych F41.9 Dicyclomine HCL by mouth twice a 120caps K21.0 Kai Gibbs, 05/13/2019 10mg Capsules day-GI M.D. K30 K58.1 Zonisamide 3 by mouth at G40.909 [facility] 04/22/2019 100mg bedtime-Psych M., M.D. Capsules Pantoprazole Sodium 1 by mouth twice a day 180tabs K21.0 [facility] M., M.D. 40mg Tablets K3Huy Ondansetron 1 tab by mouth 90tabs R11.2 [facility] 02/10/2019 4mg Tablets every 4 hours as M.D. Dispers needed Carafate 1 tab by mouth 270tabs K21.0 [facility] 02/10/2019 1gm Tablets three times a day M.D. before meals K30 Metoprolol Tartrate 1 by mouth every 90tabs I10 [facility] 100mg day M.D. Tablets Loratadine 1 tab by mouth 90tabs J30.9 [facility] every day as M.D. needed Allopurinol 1 by mouth every 90tabs M10.9 [facility] 100mg Tablets day M.D. Aptiom Take 2 Tablets By G40.909 Unknown 800mg Tablets Mouth Once Daily AT Night AT Bedtime History Medications Citalopram 1 by mouth 30tabs F41.9 [facility] 07/21/2019 - Hydrobromide every day M., M.D. 07/28/2019 20mg Tablets Vimpat 1 tab by mouth G40.909 [facility] 04/22/2019 - 100mg Tablets twice a M., M.D. 08/12/2019 day-Neurology PT Tiw X 6-8 WKS pain r hip and M25.551 [facility] 03/20/2019 - lower back M., M.D. 05/11/2019 M51.37 M54.17 Azithromycin z debra uad 6tabs [facility] 02/17/2019 - 03/10/2019 250mg Tablets M.D. Immunizations CPT Code Status Date Vaccine Lot # [id number] Given 07/08/2019 Flu Virus Vaccine, Quadrivalent, Slit Virus, Im [id number] Use Vital Signs Date Vital Result Comment 08/12/2019 8:51am BP Systolic 142 mmHg BP Diastolic 78 mmHg Height 73 inches 6'1" Weight 286.00 lb BMI (Body Mass Index) 37.7 kg/m2 Heart Rate 76 /min Respiratory Rate 16 /min 07/21/2019 10:11am BP Systolic 124 mmHg BP Diastolic 66 mmHg Height 73 inches 6'1" Weight 288.00 lb BMI (Body Mass Index) 38.0 kg/m2 Heart Rate 73 /min Respiratory Rate 16 /min Results Test Acquired Date Facility Test Result H/L Range Note Laboratory test 05/26/2019 [facility] Surgical SEE RESULT 1 finding Pathology BELOW CBC Auto Diff 04/17/2019 [facility] White Blood 11.3 High 3.5-10.8 Count 10^3/uL Red Blood Count 5.61 10^6/uL High 4.18-5.48 [...] Blood Cells % 0.0 Laboratory test 04/17/2019 [facility] B-Type Natriuretic 90 pg/mL <= 100 finding Peptide BNP Comp Metabolic 04/17/2019 [facility] Sodium 128 mmol/L Low 135-145 Panel [...] Egfr Non- 118.4 >60 Egfr 143.3 >60 2 Laboratory test 04/17/2019 [facility] Alcohol < 10 mg/dL Normal <10 finding Laboratory test 03/17/2019 [facility] Surgical SEE RESULT 3 finding Pathology BELOW Laboratory test 03/17/2019 [facility] Clotest SEE RESULT 4 finding BELOW 1 SEE RESULT BELOW Name: JONEL LAW : [address]: Carlos Knapp MD Acct: [id number] Unit: [id number] AGE: 43 Location: ENDO Re05/26/19 SEX: M Status: DEP REF SPEC: [id number] ESE: 05/26/19-1115 [facility] [address]: Carlos Knapp MD REQ: [id number] RECD: 05/26/199520 STATUS: ZEINAB HENRIQUEZ DR: Kai Gibbs MD [...] 1223 END OF REPORT DEPARTMENT OF PATHOLOGY, [address] [place] [address] Juan Skinner M.D. Director [facility] # [id number] 2 Because ethnic data is not always readily [...] 15-29 5 Kidney failure <15 (or dialysis) 3 SEE RESULT BELOW Name: JONEL LAW : [address]: Carlos Knapp MD Acct: [id number] Unit: [id number] AGE: 43 Location: [facility] Re03/17/19 SEX: M Status: DEP REF SPEC: [id number] ESE: 03/17/19-32 [facility] [address]: Carlos Knapp MD REQ: [id number] RECD: 03/17/194193 STATUS: ZEINAB HENRIQUEZ DR: Kai Gibbs MD [...] CONTINUED ON NEXT PAGE DEPARTMENT OF PATHOLOGY, [address] [place] [address] Juan Skinner M.D. Director [facility] # [id number] RUN DATE: 03/19/19 [facility] LAB LIVE PAGE 2 Patient: JONEL LAW [id number] (Continued) SPECIMEN COMMENTS (Continued) components of medications [...] 1121 END OF REPORT DEPARTMENT OF PATHOLOGY, [address] [place] [address] Juan Skinner M.D. Director [facility] # [id number] 4 SEE RESULT BELOW Name: JONEL LAW Urbano Leslie : [address]: Carlos Knapp MD Acct: [id number] Unit: [id number] AGE: 43 Location: ENDO Re03/17/19 SEX: M Status: REG REF SPEC: [id number] ESE: 03/17/19 [facility] [address]: Carlos Knapp MD REQ: [id number] RECD: 03/17/19 STATUS: JOSÉ MIGUEL HENRIQUEZ DR: Kai Gibbs MD _ SOURCE: GAS ANTRUM SPDESC: ORDERED: Clotest Procedure Result Reported Site Clotest Final 03/18/19726 ML Clotest Negative * - Main Lab . END OF REPORT DEPARTMENT OF PATHOLOGY, [address] [place] [address] Juan Skinner M.D. Director [facility] # [id number] Procedures Description No Information Available Medical Devices Description No Information Available Encounters Type Date Location Provider Dx Diagnosis Office Visit 08/12/2019 [facility] Kai Gibbs, I10 Essential ( primary) 8:45a M.D. hypertension E78.2 Mixed hyperlipidemia K21.0 Gastro-esophageal [...] constipation Z79.899 Other long-term (current) drug therapy Office Visit 07/21/2019 10:15a [facility] Arash Duncan, I10 Essential (primary) N.P. [...] in left foot Office Visit 07/08/2019 11:00a [facility] Kai Gibbs I10 Essential ( primary) [...] Encounter for immunization Office Visit 05/13/2019 11:00a [facility] Kai Gibbs I10 Essential ( primary) [...] syndrome with constipation Office Visit 04/22/2019 10:45a [facility] Kai Gibbs I10 Essential ( primary) [...] J31.2 Chronic pharyngitis Office Visit 03/20/2019 2:15p [facility] Kai Gibbs I10 Essential ( primary) [...] J31.2 Chronic pharyngitis Office Visit 02/17/2019 10:30a [facility] Arash Duncan, R11.2 Nausea with N.P. [...] Z68.41 Body mass index (BMI) 40.0-44.9, adult Assessments Date Code Description Provider 08/12/2019 I10 Essential (primary) hypertension Kai Gibbs [...] Arash Duncan N.P. 07/21/2019 E78.2 Mixed hyperlipidemia Arash Duncan N.P. 07/21/2019 K21.0 Gastro-esophageal reflux disease with Arash Duncan N.PJacinda esophagitis 07/21/2019 K30 Functional dyspepsia Arash Duncan N.P. 07/21/2019 L20.9 Atopic dermatitis, unspecified Arash Duncan N.P. 07/21/2019 J30.9 Allergic rhinitis, unspecified Arash Duncan N.P. 07/21/2019 M10.9 Gout, unspecified Arash Duncan N.P. 07/21/2019 G40.909 Epilepsy, unspecified, not intractable, Arash Duncan N.P. without status epilepticus 07/21/2019 F41.9 Anxiety disorder, unspecified Arash Duncan N.P. 07/21/2019 F33.9 Major depressive disorder, recurrent, Arash Duncan N.P. unspecified 07/21/2019 E66.01 Morbid (severe) obesity due to excess Arash Duncan N.P. calories 07/21/2019 M51.37 Other intervertebral disc degeneration, Arash Duncan N.P. lumbosacral region 07/21/2019 M54.17 Radiculopathy, lumbosacral region Arash Duncan, N.P. 07/21/2019 M25.551 Pain in right hip Arash Duncan N.P. 07/21/2019 R11.2 Nausea with vomiting, unspecified Arash Duncan N.P. 07/21/2019 R10.13 Epigastric pain Arash Duncan, N.P. 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 07/21/2019 I45.10 Unspecified right bundle-branch block Arash Duncan N.P. 07/21/2019 N20.0 Calculus of kidney Arash Duncan N.P. 07/21/2019 G47.00 Insomnia, unspecified Arash Duncan N.P. 07/21/2019 J31.2 Chronic pharyngitis Arash Duncan N.P. 07/21/2019 K58.1 Irritable bowel syndrome with [...] obstruction 05/29/2019 E55.9 Vitamin D deficiency, unspecified Kia Gibbs M.D. 05/29/2019 I45.10 Unspecified right bundle-branch [...] E66.01 Morbid (severe) obesity due to excess Sai, Ahmad M., M.D. calories 05/13/2019 M51.37 Other intervertebral disc [...] K80.34 Calculus of bile duct with chronic SaiKai cardona M.D. cholangitis without obstr 03/20/2019 E55.9 Vitamin [...] obstr 02/17/2019 M54.5 Low back pain Arash Duncan N.P. 02/17/2019 R56.9 Unspecified convulsions Arash Duncan N.P. 02/17/2019 K21.9 Gastro-esophageal reflux disease without Arash Duncan N.P. esophagitis 02/17/2019 L20.9 Atopic dermatitis, unspecified Arash Duncan N.P. 02/17/2019 J30.9 Allergic rhinitis, unspecified Arash Duncan N.P. 02/17/2019 E55.9 Vitamin D deficiency, unspecified Arash Duncan, N.P. 02/17/2019 M10.9 Gout, unspecified Arash Duncan N.P. 02/17/2019 I45.10 Unspecified right bundle-branch block Arash Duncan N.P. 02/17/2019 E66.01 Morbid (severe) obesity due to excess Matthew Manriquze.P. calories 02/17/2019 J02.9 Acute pharyngitis, unspecified Matthew Manriuqez.P. 02/17/2019 Z68.41 Body mass index (BMI) 40.0-44.9, adult Matthew Manriquez.P. Plan of Treatment Future Appointment(s):08/26/2019 10:15 am - Kai Gibbs M.D. at [facility]08/12/2019 - Kai Gibbs M.D.I10 Essential (primary) hypertensionComments:CHECK BP TIW ( PRN)DIET AND FLUID COUNSELING LOW SODIUM DIETWT LOSSF/U LABE78.2 Mixed hyperlipidemiaComments:DIET REVIEWED CONTINUE DIETWT LOSSF/U LAB FBWK21.0 Gastro-esophageal reflux disease with esophagitisComments:AVOID CAFFEINE, ETOH AND SPICY FOODSTUMS OR MYLANTA PRN CALL WITH PROBLEMS OR [id number] Functional dyspepsiaComments:AVOID CAFFEINE, ETOH AND SPICY FOODSTUMS OR MYLANTA PRN CALL WITH PROBLEMS OR XOZFTXVXF29.9 Atopic dermatitis, unspecifiedComments:SKIN CARE INSTRUCTIONS LOTION OR BABY OIL 2-3 APPLICATION PER DAYUSE MOISTURIZING SOAPAVOID PROLONGED WATER EXPOSUREAVOID USING HOT WATER IN RZCHJQP96.9 Allergic rhinitis, unspecifiedComments:INCREASE PO FLUID USE ANTIHISTAMINE PRN SECOND HAND SMOKING FMDMAAKNHX14.9 Gout, unspecifiedComments:EXERCISE/HEAT/MESSAGE TAKE MEDICATIONS DIRECTEDF/U DIRECTEDCALL WITH QUESTIONS OR CONCERNSWEIGHT BEARING DSVZQQTAAC14.909 Epilepsy, unspecified, not intractable, without status epilepticusNew Medication:Vimpat 150 mg - 1 tab by mouth twice a day- neurologyComments:F/U WITH NEUROLOGY PRNOBSERVE SAFETY MUDYAMG27.9 Anxiety disorder, unspecifiedComments:COUNCELLING AND REASSURANCE RELAXATION TECHNIQUESSTRESSORS IN LIFE AVOID ALL ENERGY/HIGH CAFFEINE NXYGSLK47.9 Major depressive disorder, recurrent, unspecifiedComments:COUNCELLING AND REASSURANCE RELAXATION TECHNIQUESSTRESSORS IN LIFE AVOID ALL ENERGY/HIGH CAFFEINE FUKUDSW95.01 Morbid (severe) obesity due to excess caloriesComments:WT LOSS COUNCELLINGEXERCISEDIET TVQKPJVDQBPC08.37 Other intervertebral disc degeneration , lumbosacral regionComments:EXERCISE/HEAT /MESSAGEAVOID HEAVY LIFTING WT LOSSTYLENOL OR MOTRIN PRNM54.17 Radiculopathy, lumbosacral regionComments: EXERCISE/HEAT /MESSAGE AVOID HEAVY LIFTING WT LOSS TYLENOL OR MOTRIN PRN DUR LRCMXBAN46.551 Pain in right hipComments:EXERCISE/HEAT/MESSAGETYLENOL OR MOTRIN PRNAVOID HEAVY LIFTINGWT LOSS DUR JLNFSMLQ20.2 Nausea with vomiting, unspecifiedComments:INCREASE PO FLUID NICKY DIETR10.13 Epigastric painComments: TYLENOL OR MOTRIN PRNINCREASE PO FLUIDLAXATIVE PRN F/U DIRECTEDF/U KAAHXRUXI09.34 Calculus of bile duct with chronic cholangitis without obstructionComments:JCRMGVMJ07.9 Vitamin D deficiency, unspecifiedComments: INCREASE EXPOSURE TO SUNREVIEW OF DIETI45.10 Unspecified right bundle-branch blockComments:STABLE AND ASYMPTOMATICF/U WITH CARDIOLOGY PRNN20.0 Calculus of kidneyComments:STABLE F/U WITH UROLOGY PRNG47.00 Insomnia, unspecifiedComments: COUNCELLING AND REASSURANCE RELAXATION TECHNIQUESSTRESSORS IN LIFE AVOID ALL ENERGY/HIGH CAFFEINE CBMBZOI02.2 Chronic pharyngitisComments:INCREASE PO FLUIDTYLENOL OR MOTRIN PRNREST WARM FLUIDS/COLD WHICH EVER MAKES THROAT FEEL BETTERSUCRETS DIRECTED CALL IF SYMPTOMS WORSEN F/U CDUQCWPNZ59.1 Irritable bowel syndrome with constipationComments:MOM OR MIRALAX PRNHIGH FIBER DIETINCREASE PO FLUID TYLENOL OR MOTRIN PRNZ79.899 Other long-term (current) drug therapyComments:DRUG SCREEN DONEREVIEWED MEDICATIONS AND DIRECTIONS WITH PATIENT DUR CHECKED Functional Status Description No Information Available Mental Status Description No Information Available Referrals Refer to Dr Reason for Referral Status Appt Date Closed [facility] Neurology PT REQUESTING DR. WHEAT Closed [facility] [address] [place] [address] Floor [facility] [address] [phone] [facility] Closed [address] [place] [address] [phone] Carlos Knapp MD SUSPICION FOR 'PUD' & CHOLECYSTITIS PT ASKING Closed FOR SOONEST APPT POSSIBLE PLEASE AND THANK YOU. [facility] [id number] [phone]
--- OUTSIDE RECORDS SUMMARY | 2019-10-05 13:18 | XMS REPORT ---
:1975 Author Organization [facility] Care Team Providers Name Role Phone Virgilio Youssef Primary Care Physician Unavailable Allergies, Adverse Reactions, Alerts Allergy Code CodeSystem Reaction Severity Criticality Status Start Substance Date Moderate Medications Medication Medication Medication Start Stop Route Dose Status Fill Code CodeSystem Date Date Instructions RxNorm Problems Problem Name Code CodeSystem Alternate Alternate Start End Status Narrative Code CodeSystem Date Date Unspecified 10040315 SNOMED-CT 2018-09 Active anxiety 09-16 disorder Obesity, 10743416 SNOMED-CT 2018-09 Active unspecified 09-29 Adjustment 67587494 SNOMED-CT 2018-09 Active disorders, 09-23 with mixed disturbance of emotions & conduct Relevant diagnostic tests/laboratory data Narrative No Information Procedures Procedure Code CodeSystem Target Date of Status Service Device Device Device Name Site Procedure Delivery Code Name UID Location Psychother 1915574 SNOMED-CT () 2019-07-23 completed Mental apy, 45 4 Health- minutes Des with [address], [id number] Psychother 1443079 SNOMED-CT () 2019-07-31 completed Mental apy, 45 4 Health- minutes [place] with [address], [id number] [phone] Psychother 9541758 SNOMED-CT () 2019-08-06 completed Mental apy, 45 4 Health- minutes Des with [address], [id number] SNOMED-CT () 2019-07-17 completed Mental Health- [address], [phone] Encounters/Encounter Diagnoses Encounter Name Encounter Diagnosis Diagnosis Diagnosis Date of Service Code Code Name CodeSystem Diagnosis Delivery Location Psychotherapy - 11736 [id number] Adjustment SNOMED-CT 2019-08-13 Behavioral Individual 30 disorders, Health min with mixed Clinic , , disturbance , of emotions & conduct Vital Signs No Information Social History Element Description Description Start End Code CodeSystem AdditionalInfo Date Date SexAssignedAtBirth Male 1974-0 M AdministrativeGender - Hospital Discharge Instructions Reason For Referral Medical Equipment FDA Assessments
--- OUTSIDE RECORDS SUMMARY | 2019-10-05 13:18 | XMS REPORT ---
:1975 Author Organization [facility] Care Team Providers Name Role Phone Virgilio Youssef Primary Care Physician Unavailable Allergies, Adverse Reactions, Alerts Allergy Code CodeSystem Reaction Severity Criticality Status Start Substance Date Moderate Medications Medication Medication Medication Start Stop Route Dose Status Fill Code CodeSystem Date Date Instructions sertraline 381996 RxNorm 2019-08 oral 100 mg 1 active Take 1 tablet -09 tablet once a day once a for 30 day(s) day Problems Problem Name Code CodeSystem Alternate Alternate Start End Status Narrative Code CodeSystem Date Date Obesity, 88213088 SNOMED-CT 2018-09 Active unspecified 1-20 Depressive 58489263 SNOMED-CT 2018-09 Active episode, 2-11 unspecified Unspecified 50701069 SNOMED-CT 2018-09 Active anxiety 1-07 disorder Adjustment 21920862 SNOMED-CT 2018-09 Active disorders, 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 Relevant diagnostic tests/laboratory data Narrative No Information Procedures Procedure Code CodeSystem Target Date of Status Service Device Device Device Name Site Procedure Delivery Code Name UID Location Psychotherap 992439 SNOMED-CT () 2019-08-13 complete Mental y, 45 04 d Health- minutes with [address], [id number] Psychotherap 145555 SNOMED-CT () 2019-08-20 complete Mental y, 45 04 d Health- minutes with [address], [id number] [phone] Psychotherap 612924 SNOMED-CT () 2019-07-23 complete Mental y, 45 04 d Health- minutes with [address], [phone] [phone] Psychotherap 456167 SNOMED-CT () 2019-07-31 complete Mental y, 45 04 d Health- minutes with [address] [place], [place], [phone] Psychotherap 459015 SNOMED-CT () 2019-08-06 complete Mental y, 45 04 d Health- minutes with [facility] patient [address], [phone] Psychiatric 091016 SNOMED-CT () 2019-08-18 complete Mental diagnostic 85 d Health- evaluation [facility] services [address] [place] [address], [phone] SNOMED-CT () 2019-07-17 complete Mental d Health- [address], [phone] Encounters/Encounter Diagnoses Encounter Name Encounter Diagnosis Diagnosis Diagnosis Date of Service Code Code Name CodeSystem Diagnosis Delivery Location Psychotherapy - 80781 [id number] Depressive SNOMED-CT 2019-08-27 Behavioral Individual 30 episode, Health min unspecified Clinic , , , Vital Signs No Information Social History Element Description Description Start End Code CodeSystem AdditionalInfo Date Date SexAssignedAtBirth Male 1974-0 M AdministrativeGender 9-20 Hospital Discharge Instructions Reason For Referral Medical Equipment FDA Assessments
--- OUTSIDE RECORDS SUMMARY | 2019-10-05 13:18 | XMS REPORT ---
:1975 Author Organization [facility] Care Team Providers Name Role Phone Virgilio Youssef Primary Care Physician Unavailable Allergies, Adverse Reactions, Alerts Allergy Code CodeSystem Reaction Severity Criticality Status Start Substance Date Moderate Medications Medication Medication Medication Start Stop Route Dose Status Fill Code CodeSystem Date Date Instructions RxNorm Problems Problem Name Code CodeSystem Alternate Alternate Start End Status Narrative Code CodeSystem Date Date Adjustment 37868295 SNOMED-CT 2018-09 Active disorders, 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 Obesity, 31617667 SNOMED-CT 2018-09 Active unspecified -20 Unspecified 33735828 SNOMED-CT 2018-09 Active anxiety -07 disorder Relevant diagnostic tests/laboratory data Narrative No Information Procedures Procedure Code CodeSystem Target Date of Status Service Device Device Device Name Site Procedure Delivery Code Name UID Location Psychother 4285812 SNOMED-CT () 2019-07-23 completed Mental apy, 45 4 Health- minutes [facility] with [facility] patient [address], [place], [phone] Encounters/Encounter Diagnoses Encounter Name Encounter Diagnosis Diagnosis Diagnosis Date of Service Code Code Name CodeSystem Diagnosis Delivery Location Psychotherapy - 05032 [id number] Adjustment SNOMED-CT 2019-07-31 Behavioral Individual 30 disorders, Health min with mixed Clinic , , disturbance , of emotions & conduct Vital Signs No Information Social History Element Description Description Start End Code CodeSystem AdditionalInfo Date Date SexAssignedAtBirth Male 1974-0 M AdministrativeGender 9-20 Hospital Discharge Instructions Reason For Referral Medical Equipment FDA Assessments
--- OUTSIDE RECORDS SUMMARY | 2019-10-05 13:18 | XMS REPORT | Continuity of Care Document ---
:1975 External Reference #:[id number] Author Name Rafael Parada M.D. (transmitted by agent of provider Paola Dudley) Address [address] [place] [address] Care Team Providers Name Role Phone Cintia Copeland MD - Trailer Tank Truck Driver Care Team Information Telecine Operator [phone] Lukas Pereira MD - Neurology Care Team Information Telecine Operator [phone] Problems Active Problems Provider Date Chronic sinusitis [...] Available Vital Signs Date Vital Result Comment 08/21/2019 3:14pm Weight 289.00 lb Height 68 inches 5'8" BMI (Body Mass Index) 43.9 kg/m2 BP Systolic 141 mmHg BP Diastolic 88 mmHg Heart Rate 73 /min O2 % BldC Oximetry 98 % Body Temperature 98.1 F Pain Level 0 05/13/2019 1:05pm Weight 283.00 lb Height 68 inches 5'8" BMI (Body Mass Index) 43.0 kg/m2 BP Systolic 132 mmHg BP Diastolic 85 mmHg Heart Rate 74 /min O2 % BldC Oximetry 100 % Body Temperature 97.0 F Pain Level 0 Results Description No Information Available Procedures Description No Information Available Medical Devices Description No Information Available Encounters Type Date Location Provider Dx Diagnosis Office Visit 05/13/2019 Main Office Fawn Meraz, J32.9 Chronic sinusitis, 1: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
--- OUTSIDE RECORDS SUMMARY | 2019-10-05 13:18 | XMS REPORT | Continuity of Care Document ---
:1975 External Reference #:[id number] Author Name Kai Gibbs M.D. Address [address] [place] [address] [address] [place] [address] Care Team Providers Name Role Phone [facility] - Care Team Information Director Web Mental Health Problems Active Problems Provider Date [...] HCL by mouth twice a 120caps K[facility].0 [facility] 05/13/2019 10mg Capsules day-GI M.D. K30 K58.1 Pantoprazole Sodium 1 by mouth twice 180tabs K21.0 [facility] 2018 40mg a day M.D. Tablets DR K30 Ondansetron 1 tab by mouth 90tabs R11.2 [facility] 02/10/2019 4mg Tablets every 4 hours as M.D. Dispers needed Carafate 1 tab by mouth 270tabs K21.0 [facility] 02/10/2019 1gm Tablets three times a day M.D. before meals K30 Oxycodone-Acetaminophen As needed Unknown 10-325mg Tablets Zoloft 1 Unknown 100mg Tablets Famotidine 1 Unknown 40mg Tablets Aptiom Take 2 Tablets G40.909 Unknown 800mg Tablets By Mouth Once Daily AT Night AT Bedtime Allopurinol 1 by mouth 90tabs M10.9 [facility] 100mg Tablets every day M., M.D. Loratadine 1 tab by mouth 90tabs J30.9 [facility] 10mg Tablets every day as M., M.D. needed History Medications Vimpat 1 tab by mouth twice G40.909 [facility] 08/12/2019 - 150mg Tablets a day-neurology M., M.D. 08/29/2019 Citalopram 1 by mouth every day 30tabs F41.9 [facility] 07/21/2019 - Hydrobromide M., M.D. 07/28/2019 20mg Tablets Vimpat 1 tab by mouth twice G40.909 [facility] 04/22/2019 - 100mg Tablets a day-Neurology M., M.D. 08/12/2019 Zonisamide 3 by mouth at G40.909 [facility] 04/22/2019 - 100mg bedtime-Psych MJacinda M.D. 08/29/2019 Capsules PT Tiw X 6-8 WKS pain r hip and lower M25.551 Kai Gibbs 03/20/2019 - jorge luis Godfrey M.D. 05/11/2019 M51.37 M54.17 Immunizations CPT Code Status Date Vaccine Lot # [id number] Given 07/08/2019 Flu Virus Vaccine, Quadrivalent, Slit Virus, Im [id number] Use Vital Signs Date Vital Result Comment 09/08/2019 10:48am BP Systolic 125 mmHg BP Diastolic 70 mmHg Height 73 inches 6'1" Weight 282.00 lb BMI (Body Mass Index) 37.2 kg/m2 Heart Rate 83 /min Respiratory Rate 16 /min 08/12/2019 8:51am BP Systolic 142 mmHg BP Diastolic 78 mmHg Height 73 inches 6'1" Weight 286.00 lb BMI (Body Mass Index) 37.7 kg/m2 Heart Rate 76 /min Respiratory Rate 16 /min Results Test Acquired Date Facility Test Result H/L Range Note Laboratory test 08/12/2019 [facility] Ethyl Negative Normal 10 1, 2 finding Glucuronide ng/mL Gabapentin Negative ng/mL Normal 0.5 3 Tramadol Negative ng/mL Normal 0.5 4 THC-Delta-9 44.49 Positive I <SEE NOTE> ng/mL Abnormal 1 5 Oral Fluid Drug 08/12/2019 [facility] Amphetamine NEGATIVE Normal 50 Screen Barbiturate NEGATIVE Normal 20 Benzodiazepine NEGATIVE Normal 1.5 Cannabinoid POSITIVE Abnormal 1 Cocaine NEGATIVE Normal 5 Methadone NEGATIVE Normal 5 Methamphetamine NEGATIVE Normal 40 Opiate NEGATIVE Normal 10 Phencyclidine NEGATIVE Normal 1 6 Antidepressant PNL 08/12/2019 [facility] Amitriptyline Negative Normal 0.5 (Oral-LC/MS/MS ng/mL Clomipramine Negative ng/mL Normal 0.5 Desipramine Negative ng/mL Normal 0.5 Doxepin Negative ng/mL Normal 0.5 Fluoxetine Negative ng/mL Normal 0.5 Imipramine Negative ng/mL Normal 0.5 Nortriptyline Negative ng/mL Normal 0.5 Sertraline 1.10 Positive In <SEE NOTE> ng/mL Abnormal 0.5 7 Trimipramine Negative ng/mL Normal 0.5 8 Methadone Panel 08/12/2019 [facility] Methadone Negative ng/mL Normal 1 (Oral-LC/MS/MS) Eddp Negative ng/mL Normal 0.2 9 Opiate Panel 08/12/2019 [facility] 6-Olamide (Heroin Negative Normal 0.5 (Oral-LC/MS/MS) Metabolite) ng/mL Codeine Negative ng/mL Normal 0.5 Hydrocodone 1.12 Positive In <SEE NOTE> ng/mL Abnormal 0.5 10 Hydromorphone Negative ng/mL Normal 0.5 Morphine Negative ng/mL Normal 1 Oxycodone Negative ng/mL Normal 0.5 Oxymorphone Negative ng/mL Normal 0.5 11 Cocaine Panel 08/12/2019 [facility] Cocaine Negative ng/mL Normal 0.5 (Oral-LC/MS/MS Benzoylecgonine Negative ng/mL Normal 1 12 Buprenorphine PNL 08/12/2019 [facility] Buprenorphine Negative Normal 0.05 (Oral -LC/MS/MS) ng/mL Norbuprenorphine Negative ng/mL Normal 0.5 Naloxone Negative ng/mL Normal 0.1 13 Barbiturate PNL 08/12/2019 [facility] Butalbital Negative ng/mL Normal 10 (Oral-L C/MS/MS) Pentobarbital Negative ng/mL Normal 10 Phenobarbital Negative ng/mL Normal 10 Secobarbital Negative ng/mL Normal 10 14 Benzodiazepine PNL 08/12/2019 [facility] 7-Aminoclonazepam Negative Normal 0.2 (Oral-LC/MS/MS) [...] ng/mL Normal 0.2 16 Amphetamine Panel 08/12/2019 [facility] Amphetamine Negative ng/ mL Normal 0.5 (Oral -LC/MS/MS) Methamphetamine Negative ng/mL Normal 0.5 Mda Negative ng/mL Normal 1 Mdea Negative ng/mL Normal 0.5 Mdma Negative ng/mL Normal 0.5 17 Oral [place] FML 08/12/2019 [facility] Comment: See Components Normal 18 Practice Laboratory test 05/26/2019 [facility] Surgical SEE RESULT 19 finding Pathology BELOW CBC Auto Diff 04/17/2019 [facility] White Blood 11.3 10^3/uL High 3.5 [...] Blood Cells % 0.0 Laboratory test 04/17/2019 [facility] B-Type Natriuretic 90 pg/mL <= 100 finding Peptide BNP Comp Metabolic 04/17/2019 [facility] Sodium 128 mmol/L Low 135-145 Panel [...] >60 Egfr 143.3 >60 20 Laboratory test 04/17/2019 [facility] Alcohol < 10 mg/dL Normal <10 finding Laboratory test 03/17/2019 [facility] Surgical SEE RESULT 21 finding Pathology BELOW Laboratory test 03/17/2019 [facility] Clotest SEE RESULT 22 finding BELOW 1 Prescribed Medications: Lorazepam (Lorazepam), Zonisamide (Zonisamide), [...] [address]: Carlos Knapp MD Acct: [id number] Unit: [id number] AGE: 43 Location: ENDO Re05/26/19 SEX: M Status: DEP REF SPEC: [id number] ESE: 05/26/19-[address] [facility] DR: Carlos Knapp MD REQ: [id number] RECD: 05/26/19 STATUS: ZEINAB HENRIQUEZ DR: Kai [...] 1223 END OF REPORT DEPARTMENT OF PATHOLOGY, [address] [place] [address] Juan Skinner M.D. Director [facility] # [id number] 20 Because ethnic data is not always [...] 15-29 5 Kidney failure <15 (or dialysis) 21 SEE RESULT BELOW Name: JONEL LAW : [address]: Carlos Knapp MD Acct: [id number] Unit: [id number] AGE: 43 Location: ENDO Re03/17/19 SEX: M Status: DEP REF SPEC: [id number] ESE: 03/17/19-[address] [facility] DR: Carlos Knapp MD REQ: [id number] RECD: 03/17/19 STATUS: ZEINAB HENRIQUEZ DR: Kai [...] CONTINUED ON NEXT PAGE DEPARTMENT OF PATHOLOGY, [address] [place] [place] [address] Juan Skinner M.D. Director [facility] # [id number] RUN DATE: 03/19/19 [facility] LAB LIVE PAGE 2 Patient: JONEL LAW [id number] (Continued) SPECIMEN COMMENTS (Continued) components of medications [...] 1121 END OF REPORT DEPARTMENT OF PATHOLOGY, [address] [place] [place] [address] Juan Skinner M.D. Director [facility] # [id number] 22 SEE RESULT BELOW Name: JONEL LAW : [address]: Carlos Knapp MD Acct: [id number] Unit: [id number] AGE: 43 Location: ENDO Re03/17/19 SEX: M Status: REG REF SPEC: [id number] ESE: 03/17/[address] [facility] DR: Carlos Knapp MD REQ: [id number] RECD: 03/17/19 STATUS: JOSÉ MIGUEL HENRIQUEZ DR: Kai Gibbs MD _ SOURCE: GAS ANTRUM SPDESC: ORDERED: Clotest Procedure Result Reported Site Clotest Final 03/18/19726 ML Clotest Negative * ML - Main Lab . END OF REPORT DEPARTMENT OF PATHOLOGY, [address] [place] [place] [address] uJan Skinner M.D. Director [facility] # [id number] Procedures Description No Information Available Medical Devices Description No Information Available Encounters Type Date Location Provider Dx Diagnosis Office Visit 09/08/2019 [facility] Kai Gibbs I10 Essential ( primary) 10:45a Oniel hypertension E78.2 Mixed hyperlipidemia K21.0 Gastro-esophageal reflux [...] Irritable bowel syndrome with constipation Z79.899 Other intermediate manager (current) drug therapy K57.00 Dvtrcli of sm int w perforation and abscess w/o bleeding K81.1 Chronic cholecystitis Office Visit 08/12/2019 8:45a [facility] Kai Gibbs I10 Essential ( primary) [...] Irritable bowel syndrome with constipation Z79.899 Other retirement (current) drug therapy Office Visit 07/21/2019 10:15a [facility] Arash Duncan, I10 Essential (primary) N.P. [...] in left foot Office Visit 07/08/2019 11:00a [facility] Kai Gibbs I10 Essential ( primary) [...] Encounter for immunization Office Visit 05/13/2019 11:00a [facility] Kai Gibbs I10 Essential ( primary) [...] syndrome with constipation Office Visit 04/22/2019 10:45a [facility] Kai Gibbs I10 Essential ( primary) [...] J31.2 Chronic pharyngitis Office Visit 03/20/2019 2:15p [facility] Kai Gibbs I10 Essential ( primary) [...] Chronic pharyngitis Assessments Date Code Description Provider 09/08/2019 I10 Essential (primary) hypertension Kai Gibbs [...] 09/08/2019 K58.1 Irritable bowel syndrome with constipation aKi Gibbs M.D. 09/08/2019 Z79.899 Other intermediate manager (current) drug therapy Kai Gibbs M.D. 09/08/2019 [...] constipation Kai Gibbs M.D. 08/12/2019 Z79.899 Other intermediate manager (current) drug therapy Kai Gibbs M.D. 07/29/2019 [...] status epilepticus 07/29/2019 F41.9 Anxiety disorder, unspecified aKi Gibbs M.D. 07/29/2019 F33.9 Major depressive disorder, recurrent, Kai Gibbs M.D. unspecified 07/29/2019 E66.01 Morbid (severe) obesity due to excess Kai Gibbs M.D. calories 07/29/2019 M51.37 Other intervertebral disc degeneration, Kai Gibbs M.D. lumbosacral region 07/29/2019 M54.17 Radiculopathy, lumbosacral region Kai Gibbs M.D. 07/29/2019 M25.551 Pain in right hip Kai Gibbs M.D. 07/29/2019 R11.2 Nausea with vomiting, unspecKai Webster M.D. 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 07/08/2019 I45.10 Unspecified right bundle-branch block Kai Gibbs M.D. 07/08/2019 N20.0 Calculus of kidney Kai Gibbs M.D. 07/08/2019 G47.00 Insomnia, unspecKai Webster M.D. 07/08/2019 J31.2 Chronic pharyngitis Kai Gibbs [...] Kai Gibbs M.D. 05/29/2019 M10.9 Gout, unspecified SaiKai cardona M.D. 05/29/2019 G40.909 Epilepsy, unspecified, not intractable, Kai Gibbs M.D. without status epilepticus 05/29/2019 F41.9 Anxiety disorder, unspecified Kai Gibbs M.D. 05/29/2019 F33.9 Major depressive disorder, recurrent, Kai Gibbs M.D. unspecified 05/29/2019 E66.01 Morbid (severe) obesity due to excess Kai Gibbs M.D. calories 05/29/2019 M51.37 Other intervertebral disc degeneration, Kia Gibbs M.D. lumbosacral region 05/29/2019 M54.17 Radiculopathy, [...] 03/17/2019 R11.2 Nausea with vomiting, unspecified Arash Duncan N.P. 03/17/2019 K80.34 Calculus of bile duct with chronic Arash Duncan N.P. cholangitis without obstr 03/17/2019 M54.5 Low back pain Arash Duncan N.P. 03/17/2019 R56.9 Unspecified convulsions Arash Duncan N.PJacinda 03/17/2019 K21.9 Gastro-esophageal reflux disease without Arash Duncan N.P. esophagitis 03/17/2019 L20.9 Atopic dermatitis, unspecified Arash Duncan N.P. 03/17/2019 J30.9 Allergic rhinitis, unspecified Arash Duncan N.PJacinda 03/17/2019 E55.9 Vitamin D deficiency, unspecified Arash Duncan N.P. 03/17/2019 M10.9 Gout, unspecified Arash Duncan N.P. 03/17/2019 I45.10 Unspecified right bundle-branch block Arash Duncan N.PJacinda 03/17/2019 E66.01 Morbid (severe) obesity due to excess Matthew Manriquez.PJacinda calories 03/17/2019 J02.9 Acute pharyngitis, unspecified Arash Duncan N.P. 03/17/2019 Z68.41 Body mass index (BMI) 40.0-44.9, adult Arash Duncan N.P. Plan of Treatment Future Appointment(s):09/16/2019 10:00 am - Kai Gibbs M.D. at [facility]09/08/2019 - aKi Gibbs M.D.I10 Essential (primary) hypertensionNew Medication:Metoprolol Succinate ER 100 mg - 1 by mouth every dayComments:CHECK BP TIW ( PRN)DIET AND FLUID COUNSELING LOW SODIUM DIETWT LOSSF/U LABE78.2 Mixed hyperlipidemiaComments:DIET REVIEWED CONTINUE DIETWT LOSSF/U LAB FBWK21.0 Gastro -esophageal reflux disease with esophagitisComments:AVOID CAFFEINE, ETOH AND SPICY FOODSTUMS OR MYLANTA PRN CALL WITH PROBLEMS OR [id number] Functional dyspepsiaComments:AVOID CAFFEINE, ETOH AND SPICY FOODSTUMS OR MYLANTA PRN CALL WITH PROBLEMS OR RHBIBMXIP75.9 Atopic dermatitis, unspecifiedComments:SKIN CARE INSTRUCTIONS LOTION OR BABY OIL 2-3 APPLICATION PER DAYUSE MOISTURIZING SOAPAVOID PROLONGED WATER EXPOSUREAVOID USING HOT WATER IN VZYCOFB00.9 Allergic rhinitis, unspecifiedComments:INCREASE PO FLUID USE ANTIHISTAMINE PRN SECOND HAND SMOKING OTDNXVSQEB78.9 Gout, unspecifiedComments:EXERCISE/HEAT/MESSAGE TAKE MEDICATIONS DIRECTEDF/U DIRECTEDCALL WITH QUESTIONS OR CONCERNSWEIGHT BEARING FIXGPYNKRT80.909 Epilepsy, unspecified, not intractable, without status epilepticusComments:F/U WITH NEUROLOGY PRNOBSERVE SAFETY EEKHCIW76.9 Anxiety disorder, unspecifiedComments:COUNCELLING AND REASSURANCE RELAXATION TECHNIQUESSTRESSORS IN LIFE AVOID ALL ENERGY/HIGH CAFFEINE SBJXLUB30.9 Major depressive disorder, recurrent, unspecifiedComments: COUNCELLING AND REASSURANCE RELAXATION TECHNIQUESSTRESSORS IN LIFE AVOID ALL ENERGY/HIGH CAFFEINE QVXSXLP84.01 Morbid (severe) obesity due to excess caloriesComments:WT LOSS COUNCELLINGEXERCISEDIET RKQZFXBRXRYP37.37 Other intervertebral disc degeneration, lumbosacral regionComments:EXERCISE/HEAT / MESSAGEAVOID HEAVY LIFTING WT LOSSTYLENOL OR MOTRIN PRNM54.17 Radiculopathy, lumbosacral regionComments:EXERCISE/HEAT /MESSAGE AVOID HEAVY LIFTING WT LOSS TYLENOL OR MOTRIN PRN DUR APCQWZFO10.551 Pain in right hipComments:EXERCISE/ HEAT/MESSAGETYLENOL OR MOTRIN PRNAVOID HEAVY LIFTINGWT LOSS DUR QLYPFDIW10.2 Nausea with vomiting, unspecifiedComments:INCREASE PO FLUID NICKY DIETR10.13 Epigastric painComments:TYLENOL OR MOTRIN PRNINCREASE PO FLUIDLAXATIVE PRN F/U DIRECTEDF/U AVLXFBSBR17.34 Calculus of bile duct with chronic cholangitis without obstructionComments:UJZULQCO13.9 Vitamin D deficiency, unspecifiedComments:INCREASE EXPOSURE TO SUNREVIEW OF DIETI45.10 Unspecified right bundle-branch blockComments:STABLE AND ASYMPTOMATICF/U WITH CARDIOLOGY PRNN20.0 Calculus of kidneyComments:STABLE F/U WITH UROLOGY PRNG47.00 Insomnia, unspecifiedComments:COUNCELLING AND REASSURANCE RELAXATION TECHNIQUESSTRESSORS IN LIFE AVOID ALL ENERGY/HIGH CAFFEINE TALCMLZ29.2 Chronic pharyngitisComments: INCREASE PO FLUIDTYLENOL OR MOTRIN PRNREST WARM FLUIDS/COLD WHICH EVER MAKES THROAT FEEL BETTERSUCRETS DIRECTED CALL IF SYMPTOMS WORSEN F/U HPANIDUHK24.1 Irritable bowel syndrome with constipationComments:MOM OR MIRALAX PRNHIGH FIBER DIETINCREASE PO FLUID TYLENOL OR MOTRIN PRNZ79.899 Other retirement (current) drug therapyComments:DRUG SCREEN DONEREVIEWED MEDICATIONS AND DIRECTIONS WITH PATIENT DUR GFJTIRSL72.00 Diverticulitis of small intestine with perforation and abscess without bleedingComments:TYLENOL OR MOTRIN PRN INCREASE PO FLUID LAXATIVE PRNK81.1 Chronic cholecystitisComments:F/U WITH SURGERY Functional Status Description No Information Available Mental Status Description No Information Available Referrals Refer to Dr Reason for Referral Status Appt Date Closed [facility] Neurology PT REQUESTING DR. WHEAT Closed [facility] [address] [facility] [address] [place] [address] Floor [facility] [id number] [phone] [facility] Closed [address] [place], [place] [id number] [phone]
--- OUTSIDE RECORDS SUMMARY | 2019-10-05 13:18 | XMS REPORT | Summary of Care ---
:1975 Author Organization [facility] Address [address] [place] [address] Care Team Providers Name Role Phone Kai Gibbs MD Primary Care Provider Reason for Referral Surgical (Routine) Status Reason Specialty Diagnoses / Referred By Referred To Contact Procedures Contact Open Specialty Surgery Diagnoses Biliary colic Emelina, Surgical Services Ghislaine Leslie MD Subspecialties [facility] [address] [facility] Based [place] [address] [address] [facility] [address] [address] Phone: [place], [place] [phone] Fax: Email: [email or web address] Reason for Visit Auth/Cert Status Reason Specialty Diagnoses / Procedures Referred By Referred To Contact Contact Diagnoses Perforated diverticulitis Diverticulitis large intestine Encounter Details Date Type Department Care Team Description 08/31/2019 - Hospital [facility] GENERAL [place], Diverticulitis of large intestine with perforation without bleeding (Primary Dx); 09/03/2019 Encounter MEDICINE Rossana Stout MD Biliary colic [address], [place] [address] [id number] [place] [address] [phone] Allergies Active Allergy Reactions Severity Noted Date Comments Penicillins Rash Medium 05/05/2019 documented as of this encounter (statuses as of 09/03/2019) Medications Medication Sig Dispensed Refills Start Date [...] by mouth daily (ZOLOFT)Indications: Anxiety with depression Magnesium 400 MG Oral Take 400 mg by 30 tablet 5 07/23/2019 Active Tablet mouth daily LORazepam 2 MG Oral Take 1 tablet 12 tablet 0 07/24/2019 Active Tablet (ATIVAN) by mouth as needed for Anxiety, Max Daily Dose: 2 mg Lacosamide 200 MG Oral Take 1 tablet 60 tablet 5 08/26/2019 Active Tablet (VIMPAT) by mouth Two Times Daily , Max Daily Dose: 400 mg Additional information Patient taking differently: 100 mg Oral Three Times Daily Standard, Reported on 08/31/2019 12:36 AM Famotidine 20 MG Oral Take 40 mg by mouth 0 Active Tablet (PEPCID) daily Acetaminophen 325 MG Take 2 tablets by 30 tablet 0 09/03/2019 09/13/2019 Active Oral Tablet mouth every 6 (six) hours for 10 days Docusate Sodium 100 MG Take 1 capsule by 20 capsule 0 09/03/20192019 Active Oral Capsule (COLACE) mouth Two Times Daily for 10 days Ibuprofen 600 MG Oral Take 1 tablet by 30 tablet 0 09/03/2019 09/13/2019 Active Tablet (ADVIL,MOTRIN) mouth every 6 (six) hours as needed for up to 10 days Polyethylene Glycol 3350 Take 1 packet by 14 each 0 09/04/2019 09/07/2019 Active Oral Packet (MIRALAX) mouth daily for 3 daysPlease substitute bottle for packets, if packets are unavailable. 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 documented as of this encounter (statuses as of 09/03/2019) Social History Tobacco Use Types Packs/Day Years [...] Sign Reading Time Taken Comments Blood Pressure 155/100 09/03/2019 10:55 AM EST Pulse 59 09/03/2019 10:55 AM EST Temperature 36.5 09/03/2019 10:55 AM C (97.7 EST F) Respiratory Rate 18 09/03/2019 10:55 AM EST Oxygen Saturation 99% 09/03/2019 10:55 AM EST Inhaled Oxygen Concentration - - Weight 130.8 kg (288 lb 4.8 oz) 08/31/2019 12:00 AM EST Height 185.4 cm (6' 1") 08/31/2019 12:00 AM EST Body Mass Index 38.04 08/31/2019 12:00 AM EST documented in this encounter Progress Notes Nies, Bozena J, RN - 09/03/2019 12:39 PM ESTPt discharged at 1230. Pt was brougth down to [place] by staff via wheelchair where he was picked up by family. Paperwork and belongings sent with pt. Pt verbalized understanding of discharge paperwork. Peripheral IV removed. VSS. Safety measures maintained. Bozena Boyd RN - 09/03/2019 11:48 AM EST 09/03/19 1055 Vitals BP (!) 155/100 BP Location Right arm BP Method Automatic pt concerned about blood pressure, per Jaspreet Tarango, pt should follow up to PCP. Relayed information to pt Glynn Kauffman MBBS - 09/03/2019 10:59 AM ESTPt is seen at bedside this morning. Re[orts that he is being discharged today. Is currently on vimpat 200 mg bid (increased from 150 mg bid last week) and aptiom 1600 mg nightly. He reports that anxiety and mood changes have not improved after discontinuing zonisamide and continues to have episodes of"brain stuttering" everyday. He had them about 2-3 times every week in the past, now everyday. Typical spells were not captured in prior VEEG but some less typical spells were captured with no EEG changes. Is not monitored during current admission due to ongoing surgical interventions. Continue follow up with Dr Pereira and future ambulatory/ repeat VEEG at his discretion. Can be discharged on current doses of AED s. D/W Dr Agrawal Associated attestation - Edward Agrawal MD - 09/03/2019 11:27 AM MICHAEL saw and evaluated the patient. Discussed with the resident and agree with residents findings as documented in the resident's note. Bozena Lawler RN - 09/03/2019 8:56 AM EST 09/03/19 0830 Vitals BP (!) 170/92 BP Location Left arm BP Method Manual SurOnc2 MD Hall notified via text page Myriam Currie RN - 09/03/2019 6:30 AM ESTAssumed pt. care at 2300. Throughout the night the pt. had three episodes of Focal seizures with a pounding headache and elevated BP. PRN medications were administered and Shreyas Sampson made aware. No acute changes made to plan of care at this time. Seizure precautions maintained. Stacie Patterson RN - 09/02/2019 9:49 PM ESTPt transferred from . Bedside report was given. Call almendarez within reach. Seizure precautions maintained. Will continue to monitor. Hilda Merrill RD - 09/02/2019 5:52 PM EST Department of Food and Nutrition Nutritional Evaluation and Care Plan Basic Evaluation Patient is a 44 y.o. 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 Authorizing Provider Famotidine 20 MG Oral Tablet (PEPCID) Take 40 mg by mouth daily Yes Historical Provider, allopurinol (ZYLOPRIM) 100 MG tablet Take 100 mg by mouth daily Historical Provider, Dicyclomine HCl 10 MG Oral Capsule (BENTYL) Take 10 mg by mouth Two Times Daily Historical Provider, eslicarbazepine (APTIOM) 800 MG tablet Take 1,600 mg by mouth nightly Historical Provider, HYDROcodone-acetaminophen (LORTAB) 5-325 MG per tablet Take 1 tablet by mouth every 8 (eight) hours as needed for Pain Historical Provider, Lacosamide 200 MG Oral Tablet (VIMPAT) Take 1 tablet by mouth Two Times Daily , Max Daily Dose: 400 mg Patient taking differently: Take 100 mg by mouth Three times daily 08/26/19 Lukas Pereira MD loratadine (CLARITIN) 10 MG tablet Take 10 mg by mouth daily Historical Provider, LORazepam 2 MG Oral Tablet (ATIVAN) Take 1 tablet by mouth as needed for Anxiety, Max Daily Dose: 2mg 07/24/19 Lukas Pereira MD Magnesium 400 MG Oral Tablet Take 400 mg by mouth daily 07/23/19 Lukas Pereira MD metoprolol (LOPRESSOR) 100 MG tablet Take 1 tablet by mouth daily 05/09/19 Iraida Fuller, CHEL pantoprazole (PROTONIX) 40 MG tablet Take 40 mg by mouth Two times daily before meals HistoricalProviderMD ranitidine (ZANTAC) 150 MG tablet Take 150 mg by mouth Two Times Daily Historical Provider, Sertraline HCl 50 MG Oral Tablet (ZOLOFT) Take 1 tablet by mouth daily 07/21/19 07/19/20 Lukas Pereira MD sucralfate (CARAFATE) 1 g tablet Take 1 g by mouth Three times daily before meals 30 to 60 minutes before meals Historical Provider, tizanidine (ZANAFLEX) 2 MG tablet Take 2 mg by mouth every 8 (eight) hours as needed Historical Provider, zonisamide (ZONEGRAN) 100 MG capsule Take 300 mg by mouth nightly Historical Provider, Multidisciplinary Problems: Active Problems: Cryptogenic localization-related epilepsy Diverticulitis large intestine Current Diet/Tube Feed/TPN Order: Diet Age: Adult; Diet: Modified; Modifier: Liquid Diets, Other Diets/Requests/Fluid Restrictions; Liquid Diets: Full Liquids Only; Other Diets/Requests/Fluid Restrictions: No Carbonated Beverages Active, Scheduled Medications: Current Facility-Administered Medications Medication Dose Route Frequency Provider Last Rate Last Dose acetaminophen (TYLENOL) tablet 650 mg 650 mg Oral Q6H Shreyas Boone MD 650 mg at 09/02/19 1424 allopurinol (ZYLOPRIM) tablet 100 mg 100 mg Oral Daily Jesus Herron MD 100 mg at 09/02/19 0850 bisacodyl (DULCOLAX) suppository 10 mg 10 mg Rectal Daily PRN Shreyas Boone MD calcium carbonate (TUMS) chewable tablet 500 mg 500 mg Oral Daily PRN Shreyas Boone MD cefTRIAXone (ROCEPHIN) IVPB (premix) 2 g 2 g Intravenous Q24H Mame Donaldson MD 100 mL/hrat 09/02/19 0000 2 g at 09/02/19 0000 dextrose 5 %-0.9 % sodium chloride infusion Intravenous Continuous Mame Donaldson MD 100mL/hr at 09/02/19 0316 dicyclomine (BENTYL) capsule 10 mg 10 mg Oral BID Jesus Herron MD 10 mg at 09/02/19 0850 docusate sodium (COLACE) capsule 100 mg 100 mg Oral BID Shreyas Boone MD 100 mg at 09/02/19 0850 eslicarbazepine (APTIOM) tablet 1,600 mg 1,600 mg Oral Nightly Jesus Herron MD 1,600 mg at 09/01/19 2149 fentaNYL (SUBLIMAZE) (PF) injection 25 mcg 25 mcg Intravenous Q3H PRN Shreyas Boone MD 25 mcg at 09/02/19 1424 ibuprofen (ADVIL,MOTRIN) tablet 600 mg 600 mg Oral Q6H PRN Jesus Herron MD 600 mg at 08/31/19 0614 lacosamide (VIMPAT) injection 200 mg 200 mg Intravenous BID Jesus Herron MD 200 mg at111/03/18 0851 loratadine (CLARITIN) tablet 10 mg 10 mg Oral Daily Jesus Herron MD 10 mg at 850 Magnesium Oxide (MAG-OX) tablet 400 mg 400 mg Oral Daily Jesus Herron MD 400 mg at 09/02/19 0850 melatonin tablet 5 mg 5 mg Oral Nightly Jesus Herron MD 5 mg at 09/01/19 2148 metoprolol (LOPRESSOR) tablet 100 mg 100 mg Oral Daily Jesus Herron MD 100 mg at 09/02/19 0850 metroNIDAZOLE (FLAGYL) IVPB 500 mg 500 mg Intravenous Q8H Jesus Herron MD 100 mL/hr at 09/02/19 0902 500 mg at 09/02/19 0902 ondansetron (ZOFRAN) injection 4 mg 4 mg Intravenous Q8H PRN Jesus Herron MD 4 mg at 09/02/19 1133 oxyCODONE (ROXICODONE) 5 MG/5ML solution 5 mg 5 mg Oral Q4H PRN Jesus Herron MD 5 mg at 09/01/19 1053 Or oxyCODONE (ROXICODONE) immediate release tablet 10 mg 10 mg Oral Q4H PRN Jesus Herron MD 10 mg at 09/02/19 1732 pantoprazole (PROTONIX) injection 40 mg 40 mg Intravenous BID Jesus Herron MD 40 mg at 09/02/19 0851 sertraline (ZOLOFT) tablet 100 mg 100 mg Oral Daily Jesus Herron MD 100 mg at 09/02/19 0850 sucralfate (CARAFATE) tablet 1 g 1 g Oral TID AC Jesus Herron MD 1 g at 09/02/19 1732 Allergies: Penicillins Cultural/Amish/Ethnic food preferences: None Recent Labs Lab 08/31/19 0106 09/02/19 0326 NA 132* < > 138 CL 99 < > 101 BUN 6 < > 6 GLUCOSE 114 < > 93 K 3.8 < > 3.2* BICARBONATE 23 < > 25 CREATININE 0.67* < > 0.69* CALCIUM 8.4* < > 9.0 MG 1.8 < > 1.7 PHOS 3.0 < > 3.7 ALBUMIN 3.8 -- -- < > = values in this interval not displayed. Interview: Chart reviewed for MST x 2 decreased PO intake and unintentional wt loss. Hx significant for seizures, diverticulitis episode. Admit with lower abdominal pain, n/v, loss of appetite startingday of admission, per chart. Pt with diagnosed diverticulitis; on abx with no surgical intervention pending, per chart. No seizures noted per recent EEG, per chart. Met with pt at bedside. Pt reported good appetite and intake CAR SALTER; pt eats low fat, low salt and avoids spicy or crunchy foods/seeds for management of his diverticulitis. Pt report poor appetite and intake since admit. Pt on full liquid diet, no carbonation. No current report of n/v noted per chart andpt reported though he has n/v at baseline and since admit, meds have kept it well- controlled. Only 1intake of 0% noted so far since admit per flowsheets which supports pt report. Based on documentation and pt report, pt likely not meeting nutrition needs currently and would benefit from oral supplementation; pt amenable to vanilla Ensure+. Discussed brief education re: low-fiber diet for diverticulitis flare management, which pt reported he had not heard prior and appreciated. No current questions. Last BM CAR SALTER. Labs noted as of 09/02 - K+ low, s/p PO repletion today. Learning or discharge needs identified: N/A Height: 185.4 cm Weight: 130.8 kg (288 lb 4.8 oz) Weight Method: Actual: Bed scale Body Mass Index: Body mass index is 38.04 kg/m. IBW Range (kg): 91.9 kg ( Upper IBW) Weight change: MST reporting unintentional wt loss per pt. Wt hx per chart shows wt fairly stable with slight uptrend since 07/16/19. Pt reported to this field underwriter intentional wt loss of ~160# over the past 3.5 years d/t drinking more water and less soda. Obesity or underweight? Yes BMI 35-39.99 Obesity Class II Malnutrition Identified: No Skin: Intact Nutrition Obstacles: Inadequate PO Intake and Pain Energy/Protein Requirement based on: 91.9 kg (Upper IBW,) obesity Current Protein Needs: 1.5 gm/kg = 138 gm/d Current Energy Needs: 25 kcal/kg = 2298 kcal/d Estimated Fluid Needs: ~2298 ml/d = 1 ml:kcal I/O last 3 completed shifts: In: - Out: 925 [Urine:925] No intake/output data recorded. Nutrition Diagnostic Statement(s): Patient is at nutritional risk. Current risk is High. Patient is found to have inadequate oral food/beverage intake related to medical status as evidencedby consumption of meals percent less than or equal to 25%. Nutrition Intervention(s): Nutrition Prescription/Diet Order: Continue full liquid diet with advancement as medically feasible,Meals & Snacks: Encourage good PO intake and Supplements: Please offer Ensure+ TID to support intake if intake <50% at meals, if amenable Discussed brief education re: low-fiber diet for diverticulitis flare management Nutrition Goal(s)/Outcome(s): Patient will tolerate good PO intake >/=75% prior to d/c Patient will maintain weight during admission Recommendations: - Continue full liquid diet with advancement as medically feasible - Encourage good PO intake - Please offer vanilla Ensure+ TID to support intake if intake <50% at meals - Discussed brief education re: low-fiber diet for diverticulitis flare management and pt with no current questions Monitoring/Evaluation: Labs, Pt care rounds, Weight, I&O and Meds Edward Feliz MD - 09/02/2019 3:18 PM ESTClarified with primary service that there is no plan for surgical intervention, patient tolerating anti seizure medications but mouth. He continues to have these events daily about 3- 5 times which are described as brain stuttering without impaired awareness of convulsions. Etiology of episodes are unclear, possibly seizures or aura. No episodes during routine EEG study and results are unchanged from last examination - cortical irritability in left temporal region. Will require superintendent marine oil terminal monitoring in the future, but current admission for diverticulosis may not be the correct setting to address this. There will continue antiepileptic medication at current dose - Aptiom 1600 mg nightly and vimpat 200mg twice a day (dose recently increased after generalized seizure prior to this admission). Please notify us for generalized seizures, let us know if you have additional questions. Attending Addendum EEG unchanged from previous studies. EEG was done for his new complaint of "brain stuttering" whichper description is not suggestive of seizure and frequency has improved. He has known seizure history and currently maintained on Aptiom & Vimpat regimen. Suggest continue this regimen. He follows with Dr. Pereira Office. Please call neurology if breakthrough seizure during hospitalization. I personally saw and examined the patient, reviewed the pertinent imaging, discussed the case and formulated assessment and plan with resident. I agree with the history, exam, assessment and plan outlined in the resident's note except where stated otherwise in the supplemental documentation by myself. Liliana Ramos RN - 09/02/2019 10:31 AM ESTAssumed care of the patient at 0700. During bedside report pt laying in bed in position and crying. Pt states "I want to sign myself out, the pain is too bad." Pt c/o 10/10 pain to RUQ abdomen radiating. Pt medicated with prn fentanyl. YANELY/ONC2 SENIOR SOFTWARE MANAGER notified. SENIOR SOFTWARE MANAGER at bedside to assess pt. At approximately 0820 pt rang almendarez and stated "I just had a focal seizure." Pt appears asymptomatic during reassessment. YANELY/ONC2 SENIOR SOFTWARE MANAGER notified and at bedside to assess. One time dose of morphine administered for pain. No new orders at this time. Ana Farr RN - 09/01/2019 7:09 PM ESTPatient tolerated his ultrasound poorly. 10/10 pain and frequent emesis after test. IV Zofran givenwithout releif. Pain management per orderd schedule. Ricky Uribe RN - 09/01/2019 3:29 PM ESTCase Management Screen Patient's Name: Jonel Law Date of : 1975 Age: 44 y.o. Gender: male Attending Provider: Rossana Asif MD Admitting Diagnosis: Perforated diverticulitis Diverticulitis large intestine Admission Date and Time: 08/31/2019 12:00 AM High Risk Criteria - CAR SALTER/Upon Arrival CAR SALTER-Type of Residence: Private residence CAR SALTER- Home Care Services: No Limited Home Supports/Lives Alone?: No Multi trauma/Critical care admit?: No Head/Spinal cord injury?: No Self pay/No prescription plan?: No Active with homecare?: No Multiple ED visits?: No Related/Unplanned readmission within 30 days?: No Complex/New medical issues: perforated diverticulitis Relevant comorbidities: See EPIC CM Screen Outcome Balloon Tester Screen Outcome: Anticipate no Case Management needs for discharge planning Important message (Medicare rights) given?: Yes Date Given: 08/31/19 Note: chart reviewed. Attempted to meet with the patient, but he was in too much pain to converse. Came in with perforated diverticulitis. Independent CAR SALTER. Will likely have no CM needs. Lives with spouse. CM to follow. Giancarlo, Adjuah S 3: 30 PM Ana Farr RN - 09/01/2019 1:00 PM ESTTeam at bedside to see pt, new orderes followed. 1 :42 PM Ana Farr RN - 09/01/2019 12:05 PM ESTPt pain unrelieved with fentanyl. 10/10 RUQ pain not improved with position changes. Team made aware. Rossana Ramirez MD - 09/01/2019 11:44 AM ESTPatient seen and examined. Pain improved from yesterday. No n/v. Getting EEG monitoring by neuro. WBC normal. Increase diet. Hopefully, will be able to discharge soon. Resident note to follow. 11: 45 AM Ana Farr RN - 09/01/2019 11:37 AM ESTPatient is experiencing 10/ 10 right uq pain radiating to his right shoulder not relieved with oxycodone. Fentanyl given iv. Yanely/Onc Team2 notified. Ana Farr RN - 09/01/2019 9:24 AM ESTPt resting in bed with eeg in progress. He c/o chills and "that feeling I get when im going to have a seizure" warm blankets helped with the shivering. VIMPAT was given at the time of the feelings. Lilia Camargo RN - 09/01/2019 6:53 AM EST Spoke to provider on phone and instructed to give AM dose of metoprolol early. Pt VS listed below. ECG obtained. 09/01/19 0637 Vitals Temp 36.8 C Temp src Oral Pulse 95 Heart Rate Source Automatic Resp (!) 20 BP (!) 192/95 BP Location Left arm BP Method Automatic MAP (Monitor) (!) 127 Patient Position Lying Providers at bedside to assess patient. Patient states he get anxiety and treats it with lexapro as needed. States it may be anxiety that iscausing his symptoms. No new orders at this time. Lilia Haskins 6:57 AM Lilia Camargo RN - 09/01/2019 5:51 AM ESTTeam paged regarding uncontrolled BP in 160s. No new orders placed. 0545 patient began feeling sharp chest pain/pressure with nausea. Team paged again. No response. Patient refusing pain medication at this time due to nausea. Zofran not due to be administered yet. 0625 patient ambulating in room and was able to expel large burp that relieved pressure in abdomen, causing some relief from chest pain but still very uncomfortable. Neelima Ruiz RN - 08/31/2019 4:47 PM ESTAt approx 1615, patient states "I am having a seizure". The event was characterized by closing of the eyes for approx 30 seconds, and then reopening of the eyes. Patient alert and oriented right after event. Neurology team to bedside to assess, no new orders. Primary team paged as well. 4: 50 PM Kirk Abraham RN - 08/31/2019 3:30 PM ESTReport given to 9G. Patient transported via wheelchair. All safety precautions maintained. eKllie Hudson RN - 08/31/2019 6:15 AM ESTPt requesting NSAIDs for pain of 12/18. Ibuprofen given.Electronically signed by Kellie Wilson RN at 2018 6:16 AM Kellie Hudson RN - 08/31/2019 3:22 AM ESTIf wound was present on admission, this documentation was sent to attending provider for cosignature. Kellie Hudson RN - 08/31/2019 2:20 AM ESTPt sitting at side of bed at approximately 0130. Pt states he had a focal seizure and is holding hishead. Guided back to bed and bed alarm on. Pt denies any major distress but having some mild anxiety. No significant changes in oxygenation or HR of on monitor. Kellie Hudson RN - 08/31/2019 2:18 AM EST 08/30/19 2358 EWS Score Respiratory Rate (Breaths/min) 0 Spo2 0 Temperature (C) 0 Systolic Blood Pressure (mmHg) 0 Heart Rate (Beats/min) 2 EWS Score 2 Sepsis (SIRS) Screen Negative Vitals Temp 36.7 C Temp src Oral Pulse (!) 120 Heart Rate Source Monitor Resp (!) 20 BP (!) 152/95 BP Location Left arm BP Method Automatic MAP (Monitor) (!) 114 Patient Position Lying Oxygen Therapy SpO2 94 % $Oxygen On/Off (LINE OUT WORKER & RN) Off O2 Therapy Room air Pt arrived to floor at above time from outside hospital with EMS via stretcher. Pt has bilateral PIV's. Pt ambulated to bed independently. Seizure precautions in place since pt states he had a seizure on the ride here, and 4 others previously during the day of 08/30/19. Pt oriented to use of call belland safety precautions. Bed alarm on. documented in this encounter Plan of Treatment Date Type Specialty Care Team Description 10/17/2019 Office Visit Neurology Lukas Pereira MD [address] [place] [id number] [phone] Name Type Priority Associated Diagnoses Date/Time Lacosamide Lab Routine 08/31/2019 3:25 AM EST Zonisamide level Lab Routine 08/31/2019 3:25 AM EST Name Type Priority Associated Diagnoses Order Schedule CBC Lab Routine AM Draw for 5 Occurrences starting 08/31/2019 until 09/04/2019, 4 completed Phosphorus Level Lab Routine AM Draw for 7 Occurrences starting 08/31/2019 until 09/06/2019, 4 completed Magnesium Level Lab Routine AM Draw for 7 Occurrences starting 08/31/2019 until 09/06/2019, 4 completed Basic Metabolic Panel Lab Routine AM Draw for 5 Occurrences starting 08/31/2019 until 09/04/2019, 4 completed Lacosamide Lab Routine Once for 1 Occurrences starting 08/31/2019 until 08/31/2019 Zonisamide level Lab Routine Once for 1 Occurrences starting 08/31/2019 until 08/31/2019 Name Type Priority Associated Diagnoses Order Schedule Referral to Outpatient Referral Routine Biliary colic Ordered: General Surgery 09/03/2019 Health Maintenance Due Date Last Done Comments [...] Procedure Name Priority Date/Time Associated Comments Diagnosis CBC Routine 09/03/2019 6:15 Results for this AM EST procedure are in the results section. PHOSPHORUS LEVEL Routine 09/03/2019 6:15 Results for this AM EST procedure are in the results section. MAGNESIUM LEVEL Routine 09/03/2019 6:15 Results for this AM EST procedure are in the results section. BASIC METABOLIC PANEL Routine 09/03/2019 6:15 Results for this AM EST procedure are in the results section. CBC Routine 09/02/2019 3:26 Results for this AM EST procedure are in the results section. PHOSPHORUS LEVEL Routine 09/02/2019 3:26 Results for this AM EST procedure are in the results section. MAGNESIUM LEVEL Routine 09/02/2019 3:26 Results for this AM EST procedure are in the results section. BASIC METABOLIC PANEL Routine 09/02/2019 3:26 Results for this AM EST procedure are in the results section. EEG ROUTINE STUDY Routine 09/01/2019 11:16 Results for this PM EST procedure are in the results section. US ABDOMEN LIMITED STAT 09/01/2019 5:59 Results for this [address] PM EST procedure are in the results section. EKG 12-LEAD - CMAXX 09/01/2019 6:45 REPORT AM EST EKG 12-LEAD - CMAXX 09/01/2019 6:45 REPORT AM EST EKG 12-LEAD Routine 09/01/2019 6:45 Results for this AM EST procedure are in the results section. CBC Routine 09/01/2019 4:04 Results for this AM EST procedure are in the results section. PHOSPHORUS LEVEL Routine 09/01/2019 4:04 Results for this AM EST procedure are in the results section. MAGNESIUM LEVEL Routine 09/01/2019 4:04 Results for this AM EST procedure are in the results section. BASIC METABOLIC PANEL Routine 09/01/2019 4:04 Results for this AM EST procedure are in the results section. CT ABDOMEN PELVIS WITH STAT 08/31/2019 10:40 Results for this CONTRAST 61728 AM EST procedure are in the results section. INCENTIVE SPIROMETRY RT Routine 08/31/2019 2:10 TEACH AM EST PARTIAL THROMBOPLASTIN Routine 08/31/2019 1:06 Results for this TIME (PTT) AM EST procedure are in the results section. PROTIME INR Routine 08/31/2019 1:06 Results for this AM EST procedure are in the results section. CBC Routine 08/31/2019 1:06 Results for this AM EST procedure are in the results section. PHOSPHORUS LEVEL Routine 08/31/2019 1:06 Results for this AM EST procedure are in the results section. MAGNESIUM LEVEL Routine 08/31/2019 1:06 Results for this AM EST procedure are in the results section. LACTIC ACID LEVEL, Routine 08/31/2019 1:06 Results for this PLASMA AM EST procedure are in the results section. HEPATIC FUNCTION PANEL Routine 08/31/2019 1:06 Results for this A AM EST procedure are in the results section. BASIC METABOLIC PANEL Routine 08/31/2019 1:06 Results for this AM EST procedure are in the results section. documented in this encounter Results Basic Metabolic Panel (09/03/2019 6:15 AM EST) Bicarbonate 23 22 - 29 mmol/L [facility] Chloride 102 98 - 107 mmol/L [facility] Creatinine 0.67 (L) 0.70 - 1.20 [facility] mg/dL [facility] Glucose 103 70 - 140 mg/dL [facility] Potassium 3.6 3.4 - 5.1 [facility] mmol/L [facility] Sodium 138 136 - 145 [facility] mmol/L [facility] Blood Urea Nitrogen 4 (L) 6 - 20 mg/dL [facility] Anion Gap 14 8 - 15 mmol/L [facility] Osmolality, [place] 284 275 - 300 [facility] mosm/kg [facility] BUN/Cre Ratio 6 [facility] Calcium 8.3 (L) 8.6 - 10.0 [facility] mg/dL [facility] GFR Non >90 >60 [facility] Citizen Of [place] 2008 CDK-EPI mL/min/1.73m2 [facility] GFR >90 >60 [facility] 2009 CKD-EPI mL/min/1.73m2 [facility] Specimen Plasma Performing Organization Address City/[facility] Phone Number [facility] [address] [place] [address] [phone] [facility] [address] [place] [address] Pathology Magnesium Level (09/03/2019 6:15 AM EST) Magnesium 1.6 1.6 - 2.6 mg/dL [facility] Specimen Plasma Performing Organization Address City/[facility] Phone Number [facility] [address] [place] [address] [facility] [address] [place] [address] Pathology Phosphorus Level (09/03/2019 6:15 AM EST) Phosphorus 3.1 2.5 - 4.5 mg/dL [facility] Specimen Plasma Performing Organization Address [facility] Phone Number [facility] [address] [place] [address] [phone] [facility] [address] [place] [address] Pathology CBC (09/03/2019 6:15 AM EST) White Blood Cell 5.4 4 - 10 10*3/uL [facility] Red Blood Cell 4.56 (L) 4.6 - 6.1 [facility] 10*6/uL [facility] Hemoglobin 13.4 (L) 13.5 - 18 g/dL [facility] Hematocrit 39.1 (L) 41 - 53 % [facility] Mean Cell Volume 85.8 80 - 96 fL [facility] Mean Cell Hemoglobin 29.3 27 - 33 pg [facility] Mean Cell Hgb Conc 34.2 32.0 - 36.0 [facility] g/dL [facility] Red Cell Dist Width 12.6 11.5 - 14.5 % [facility] Platelet Count 168 150 - 400 [facility] 10*3/uL [facility] Specimen EDTA Whole Blood Performing Organization Address City/State/[facility] [place] [place] Phone Number [facility] [address] [place] [address] [phone] [facility] [address] [place] [address] Pathology Basic Metabolic Panel (09/02/2019 3:26 AM EST) Bicarbonate 25 22 - 29 mmol/L [facility] Chloride 101 98 - 107 mmol/L [facility] Creatinine 0.69 (L) 0.70 - 1.20 [facility] mg/dL [facility] Glucose 93 70 - 140 mg/dL [facility] Potassium 3.2 (L) 3.4 - 5.1 [facility] mmol/L [facility] Sodium 138 136 - 145 [facility] mmol/L [facility] Blood Urea Nitrogen 6 6 - 20 mg/dL [facility] Anion Gap 12 8 - 15 mmol/L [facility] Osmolality, [place] 283 275 - 300 [facility] mosm/kg [facility] BUN/Cre Ratio 9 [facility] Calcium 9.0 8.6 - 10.0 [facility] mg/dL [facility] GFR Non >90 >60 [facility] Citizen Of [place] 2009 CDK-EPI mL/min/1.73m2 [facility] GFR >90 >60 [facility] 2009 CKD-EPI mL/min/1.73m2 [facility] Specimen Plasma Performing Organization Address City/[facility] Phone Number [facility] [address] [place] [address] [facility] [address] [place] [address] Pathology Magnesium Level (09/02/2019 3:26 AM EST) Magnesium 1.7 1.6 - 2.6 mg/dL [facility] Specimen Plasma Performing Organization Address [facility] Phone Number [facility] [address] [place] [address] [facility] [address] [place] [address] Pathology Phosphorus Level (09/02/2019 3:26 AM EST) Phosphorus 3.7 2.5 - 4.5 mg/dL [facility] Specimen Plasma Performing Organization Address [facility] [place] [place] Phone Number [facility] [address] [place] [address] [phone] [facility] [address] [place] [address] Pathology CBC (09/02/2019 3:26 AM EST) White Blood Cell 6.2 4 - 10 10*3/uL [facility] Red Blood Cell 4.51 (L) 4.6 - 6.1 [facility] 10*6/uL [facility] Hemoglobin 13.3 (L) 13.5 - 18 g/dL [facility] Hematocrit 38.6 (L) 41 - 53 % [facility] Mean Cell Volume 85.5 80 - 96 fL [facility] Mean Cell Hemoglobin 29.5 27 - 33 pg [facility] Mean Cell Hgb Conc 34.5 32.0 - 36.0 [facility] g/dL [facility] Red Cell Dist Width 12.6 11.5 - 14.5 % [facility] Platelet Count 164 150 - 400 [facility] 10*3/uL [facility] Specimen EDTA Whole Blood Performing Organization Address [facility] Phone Number [facility] [address] [place] [address] [facility] [address] [place] [address] Pathology EEG Routine Study (09/01/2019 11:16 PM EST) Narrative Performed At Riri Vallejo MD EXTERNAL NON-INTERFACED LAB 09/01/2019 11:22 PM PROCEDURE: EEG REPORT # [id number]. DATE OF PROCEDURE: September 01, 2019 HISTORY: The patient is a 44 y.o. male with a history of epilepsy, with recent clinical events concerning for seizure. The purpose of this regular EEG is to look for evidence of epileptiform activity. No current facility-administered medications on file prior to encounter. Current Outpatient Medications on File Prior to Encounter Medication Sig Dispense Refill Famotidine 20 MG Oral Tablet (PEPCID) Take 40 mg by mouth daily allopurinol (ZYLOPRIM) 100 MG tablet Take 100 mg by mouth daily Dicyclomine HCl 10 MG Oral Capsule (BENTYL) Take 10 mg by mouth Two Times Daily eslicarbazepine (APTIOM) 800 MG tablet Take 1,600 mg by mouth nightly HYDROcodone-acetaminophen (LORTAB) 5-325 MG per tablet Take 1 tablet by mouth every 8 (eight) hours as needed for Pain Lacosamide 200 MG Oral Tablet (VIMPAT) Take 1 tablet by mouth Two Times Daily , Max Daily Dose: 400 mg (Patient taking differently: Take 100 mg by mouth Three times daily ) 60 tablet 5 loratadine (CLARITIN) 10 MG [...] by mouth Two times daily before meals ranitidine (ZANTAC) 150 MG tablet Take 150 mg by mouth Two Times Daily Sertraline HCl 50 MG Oral Tablet (ZOLOFT) Take 1 tablet by mouth daily 30 tablet 5 sucralfate (CARAFATE) 1 g tablet Take 1 g by mouth Three times daily before meals 30 to 60 minutes before meals tizanidine (ZANAFLEX) 2 MG tablet Take 2 mg by mouth every 8 (eight) hours as needed zonisamide (ZONEGRAN) 100 MG capsule Take 300 mg by mouth nightly Scheduled Meds: acetaminophen (TYLENOL) tablet 650 mg Oral Q6H allopurinol 100 mg Oral Daily cefTRIAXone 2 g Intravenous Q24H dicyclomine 10 mg Oral BID docusate sodium 100 mg Oral BID eslicarbazepine 1,600 mg Oral Nightly lacosamide 200 mg Intravenous BID loratadine 10 mg Oral Daily Magnesium Oxide 400 mg Oral Daily melatonin 5 mg Oral Nightly metoprolol 100 mg Oral Daily metroNIDAZOLE 500 mg Intravenous Q8H pantoprazole (PROTONIX) injection 40 mg Intravenous BID sertraline 100 mg Oral Daily sucralfate 1 g Oral TID AC Continuous Infusions: dextrose 5 % and 0.9% NaCl 100 mL/hr at 09/01/19 1807 PRN Meds:.bisacodyl, calcium carbonate, fentaNYL (SUBLIMAZE) injection, ibuprofen, ondansetron, oxyCODONE OR oxyCODONE TECHNICAL DESCRIPTION: This digital EEG was recorded using 2 EKG and 21 scalp and/or ear electrodes. It was reviewed in referential and bipolar montages following reformatting in the 10-[employer] International electrode placement system. In the best awake and alert state, the background consists of a symmetric 9 Hz to 10Hz, 20 to 40 microvolt posterior dominant rhythm that attenuates with eye opening. The remainder of the background consists of generalized polymorphic theta and a symmetric waxing and waning beta discharge in the frontal leads. During drowsiness the alpha rhythm drops out and there was a generalized increase in slowing of the background. No sleep architecture. Rare interictal epileptiform sharp waves maximal at F7/T7, with some extension to P7. No electrographic seizures Photic stimulation with flash frequencies of 2-21 Hz did not elicit photic driving. Activation of epileptiform abnormalities was not seen. CLINICAL IMPRESSION: This regular EEG done in the awake and drowsy states, was abnormal. The abnormality was consistent with an area of cortical irritability with epileptogenic potential in the left temporal region. This does not evolve into electrographic seizure on this study. Performing Organization Address City/State/Zipcode Phone Number EXTERNAL NON-INTERFACED LAB US Abdomen Limited (09/01/2019 5:59 PM EST) Specimen Narrative Performed At PROCEDURE INFORMATION: [facility] Exam: US Abdomen Limited, Right Upper Quadrant Exam date and time: 09/01/2019 5:13 PM Age: 44 years old Clinical indication: Abdominal pain; Localized; Right upper quadrant (ruq); Additional info: R/O acute cholecystitis TECHNIQUE: Imaging protocol: Real-time ultrasound of the abdomen with image documentation. Examination was focused on the right upper quadrant. COMPARISON: CT ABDOMEN PELVIS WITH CONTRAST [id number] 08/31/2019 10:27 AM FINDINGS: Liver: Liver appears sonographically unremarkable except for hepatomegaly. Liver measures about 20.2 cm in length. Gallbladder: What appears to be a single large gallstone and several small gallstones are noted within the gallbladder lumen. Questionable small gallbladder wall polyp. No gallbladder wall thickening. Hess's sign reported negative. Common bile duct: Normal. No stones. No dilation. Pancreas: Pancreas was obscured. Right kidney: Normal. No mass. No hydronephrosis. IMPRESSION: Cholelithiasis with no sonographic evidence for acute cholecystitis. Hepatomegaly. THIS DOCUMENT HAS BEEN ELECTRONICALLY SIGNED BY FLAQUITA WHEELER MD Procedure Note Interface, Received Via [employer] System - 09/01/2019 6:32 PM EST PROCEDURE INFORMATION: Exam: US Abdomen Limited, Right Upper Quadrant Exam date and time: 09/01/2019 5:13 PM Age: 44 years old Clinical indication: Abdominal pain; Localized; Right upper quadrant (ruq); Additional info: R/O acute cholecystitis TECHNIQUE: Imaging protocol: Real-time ultrasound of the abdomen with image documentation. Examination was focused on the right upper quadrant. COMPARISON: CT ABDOMEN PELVIS WITH CONTRAST [id number] 08/31/2019 10:27 AM FINDINGS: Liver: Liver appears sonographically unremarkable except for hepatomegaly. Liver measures about 20.2 cm in length. Gallbladder: What appears to be a single large gallstone and several small gallstones are noted within the gallbladder lumen. Questionable small gallbladder wall polyp. No gallbladder wall thickening. Hess's sign reported negative. Common bile duct: Normal. No stones. No dilation. Pancreas: Pancreas was obscured. Right kidney: Normal. No mass. No hydronephrosis. IMPRESSION: Cholelithiasis with no sonographic evidence for acute cholecystitis. Hepatomegaly. THIS DOCUMENT HAS BEEN ELECTRONICALLY SIGNED BY FLAQUITA WHEELER MD Performing Organization Address City/State/Zipcode Phone Number [facility] [address] [place] [address] EKG 12-LEAD - CMAXX REPORT (09/01/2019 6:45 AM EST) Narrative Performed At EKG 12-LEAD - CMAXX REPORT (09/01/2019 6:45 AM EST) Narrative Performed At EKG 12 Lead (09/01/2019 6:45 AM EST) Specimen Narrative Performed At Ventricular Rate: [facility] EKG 103 BPM Atrial Rate: 103 BPM P-R Interval: 144 ms QRS Duration: 90 ms Q-T Interval: 344 ms QTC Calculation(Bazett): 450 ms P [place]: 59 degrees R [place]: 10 degrees T [place]: 47 degrees : MILD SINUS TACHYCARDIA : RSR' OR QR PATTERN IN V1 SUGGESTS RIGHT VENTRICULAR CONDUCTION : DELAY : OTHERWISE NORMAL ECG : NO PREVIOUS ECGS AVAILABLE : Confirmed by MD SEGOVIA DANIEL ([id number]) on 09/01/2019 9:02:35 : AM Procedure Note Interface, Received Via [employer] - 09/01/2019 9:02 AM EST Ventricular Rate: 103 BPM Atrial Rate: 103 BPM P-R Interval: 144 ms QRS Duration: 90 ms Q-T Interval: 344 ms QTC Calculation(Bazett): 450 ms P [place]: 59 degrees R [place]: 10 degrees T [place]: 47 degrees : MILD SINUS TACHYCARDIA : RSR' OR QR PATTERN IN V1 SUGGESTS RIGHT VENTRICULAR CONDUCTION : DELAY : OTHERWISE NORMAL ECG : NO PREVIOUS ECGS AVAILABLE : Confirmed by MD SEGOVIA DANIEL ([id number]) on 09/01/2019 9:02:35 : AM Performing Organization Address City/State/Zipcode Phone Number [facility] EKG Basic Metabolic Panel (09/01/2019 4:04 AM EST) Bicarbonate 25 22 - 29 mmol/L [facility] Chloride 101 98 - 107 mmol/L [facility] Creatinine 0.69 (L) 0.70 - 1.20 [facility] mg/dL [facility] Glucose 99 70 - 140 mg/dL [facility] Potassium 3.7 3.4 - 5.1 [facility] mmol/L [facility] Sodium 136 136 - 145 [facility] mmol/L [facility] Blood Urea Nitrogen 4 (L) 6 - 20 mg/dL [facility] Anion Gap 10 8 - 15 mmol/L [facility] Osmolality, [place] 279 275 - 300 [facility] mosm/kg [facility] BUN/Cre Ratio 6 [facility] Calcium 8.9 8.6 - 10.0 [facility] mg/dL [facility] GFR Non >90 >60 [facility] Citizen Of [place] 2008 CDK-EPI mL/min/1.73m2 [facility] GFR >90 >60 [facility] 2008 CKD-EPI mL/min/1.73m2 [facility] Specimen Plasma Performing Organization Address [facility] Phone Number [facility] [address] [place] [address] [facility] [address] [place] [address] Pathology Magnesium Level (09/01/2019 4:04 AM EST) Magnesium 1.9 1.6 - 2.6 mg/dL [facility] Specimen Plasma Performing Organization Address [facility] [place] [place] Phone Number [facility] [address] [place] [address] [phone] [facility] [address] [place] [address] Pathology Phosphorus Level (09/01/2019 4:04 AM EST) Phosphorus 3.0 2.5 - 4.5 mg/dL [facility] Specimen Plasma Performing Organization Address [facility] [place] [place] Phone Number [facility] [address] [place] [address] [facility] [address] [place] [address] Pathology CBC (09/01/2019 4:04 AM EST) White Blood Cell 7.4 4 - 10 10*3/uL [facility] Red Blood Cell 4.74 4.6 - 6.1 [facility] 10*6/uL [facility] Hemoglobin 14.0 13.5 - 18 g/dL [facility] Hematocrit 40.6 (L) 41 - 53 % [facility] Mean Cell Volume 85.7 80 - 96 fL [facility] Mean Cell Hemoglobin 29.6 27 - 33 pg [facility] Mean Cell Hgb Conc 34.6 32.0 - 36.0 [facility] g/dL [facility] Red Cell Dist Width 12.8 11.5 - 14.5 % [facility] Platelet Count 166 150 - 400 [facility] 10*3/uL [facility] Specimen EDTA Whole Blood Performing Organization Address City/State/Zipcode Phone Number [facility] [address] [place] [address] [phone] [facility] [address] [place] [address] Abdomen Pelvis with Contrast (08/31/2019 10:40 AM EST) Specimen Narrative Performed At PROCEDURE INFORMATION: [facility] Exam: CT Abdomen And Pelvis With Contrast Exam date and time: 08/31/2019 10:44 AM Age: 44 years old Clinical indication: Abdominal pain; Additional info: Diverticulitis of sigmoid colon; Iv contrast only; Compare results to CT from [place] done 08/30 TECHNIQUE: Imaging protocol: Computed tomography of the abdomen and pelvis with intravenous contrast. Radiation optimization: All CT scans at this facility use at least one of these dose optimization techniques: automated exposure control; mA and/or kV adjustment per patient size (includes targeted exams where dose is matched to clinical indication); or iterative reconstruction. Contrast material: OMNI 300; Contrast volume: 100 ml; Contrast route: IV; COMPARISON: Comparison made with the previous outside abdomen pelvis CT dated 08/30/2019 performed at [facility]. FINDINGS: Lungs: Lung bases are clear. Liver: There is hepatomegaly. There is no change in the single focus of air in the right lobe of the liver measuring 1.3 x 0.4 cm which parallels a right portal vein branch. It is difficult to explain its presence as there is otherwise no air in the biliary tree. No air is identified in the mesenteric venous system. This may lie within the interstitium of the liver parenchyma. Etiology uncertain. There is a 7 x 4 mm hypodense lesion in the right lobe of liver, too small to adequately characterize, but possibly a cyst. There is no intrahepatic biliary dilatation. Gallbladder and bile ducts: There are multiple subcentimeter calcified gallstones in the gallbladder as well as a 2.7 x 2.3 cm calcified gallstone. There are no findings to suggest acute cholecystitis. There is no biliary dilatation. Pancreas: Unremarkable. No mass or ductal dilation.. Spleen: Normal. No splenomegaly. Adrenals: Normal. No mass. Kidneys and ureters: No obvious mass, cyst, or hydronephrosis. No urinary tract calculi. No findings to suggest acute pyelonephritis. Stomach and bowel: There is colonic diverticulosis. There is stable again acute diverticulitis of the sigmoid colon with localized wall thickening and mildly increased paracolic inflammatory stranding compared to the previous study. There is evidence of bowel perforation with a stable amount of extraluminal air adjacent to the region of diverticulitis as well as stable free intraperitoneal air. There is probable mild phlegmon along the anterior and superior borders of the diseased segment of the sigmoid colon without evidence of an abscess. Stomach and small bowel are unremarkable. No evidence of bowel obstruction. Appendix: Unremarkable, no evidence of acute appendicitis. Intraperitoneal space: No ascites. Vasculature: Abdominal aorta is normal. No aneurysm or dissection. Lymph nodes: Unremarkable. No enlarged lymph nodes. Bladder: Unremarkable as visualized. Reproductive: There is nonspecific enlargement of the prostate gland, correlate clinically. Bones/joints: There are degenerative changes of the thoracolumbar spine. Soft tissues: There is a small fat containing umbilical hernia. IMPRESSION: 1. Stable acute sigmoid diverticulitis with evidence of bowel perforation with a stable amount of free intraperitoneal air as well as stable extraluminal air adjacent to the region of diverticulitis. 2. Multiple calcified gallstones. No biliary dilatation. 3. Stable tiny focus of air in the right lobe of the liver, difficult to explain its presence. 4. THIS REPORT CONTAINS FINDINGS THAT MAY BE CRITICAL TO PATIENT CARE. The findings were verbally communicated via telephone conference with ROSSANA ASIF at 11:30 AM EST on 08/31/2019. The findings were acknowledged and understood. THIS DOCUMENT HAS BEEN ELECTRONICALLY SIGNED BY FLAQUITA LORENZO MD Procedure Note Interface, Received Via [employer] System - 08/31/2019 11:32 AM EST PROCEDURE INFORMATION: Exam: CT Abdomen And Pelvis With Contrast Exam date and time: 08/31/2019 10:44 AM Age: 44 years old Clinical indication: Abdominal pain; Additional info: Diverticulitis of sigmoid colon; Iv contrast only; Compare results to CT from [place] done 08/30 TECHNIQUE: Imaging protocol: Computed tomography of the abdomen and pelvis with intravenous contrast. Radiation optimization: All CT scans at this facility use at least one of these dose optimization techniques: automated exposure control; mA and/or kV adjustment per patient size (includes targeted exams where dose is matched to clinical indication); or iterative reconstruction. Contrast material: OMNI 300; Contrast volume: 100 ml; Contrast route: IV; COMPARISON: Comparison made with the previous outside abdomen pelvis CT dated 08/30/2019 performed at [facility]. FINDINGS: Lungs: Lung bases are clear. Liver: There is hepatomegaly. There is no change in the single focus of air in the right lobe of the liver measuring 1.3 x 0.4 cm which parallels a right portal vein branch. It is difficult to explain its presence as there is otherwise no air in the biliary tree. No air is identified in the mesenteric venous system. This may lie within the interstitium of the liver parenchyma. Etiology uncertain. There is a 7 x 4 mm hypodense lesion in the right lobe of liver, too small to adequately characterize, but possibly a cyst. There is no intrahepatic biliary dilatation. Gallbladder and bile ducts: There are multiple subcentimeter calcified gallstones in the gallbladder as well as a 2.7 x 2.3 cm calcified gallstone. There are no findings to suggest acute cholecystitis. There is no biliary dilatation. Pancreas: Unremarkable. No mass or ductal dilation.. Spleen: Normal. No splenomegaly. Adrenals: Normal. No mass. Kidneys and ureters: No obvious mass, cyst, or hydronephrosis. No urinary tract calculi. No findings to suggest acute pyelonephritis. Stomach and bowel: There is colonic diverticulosis. There is stable again acute diverticulitis of the sigmoid colon with localized wall thickening and mildly increased paracolic inflammatory stranding compared to the previous study. There is evidence of bowel perforation with a stable amount of extraluminal air adjacent to the region of diverticulitis as well as stable free intraperitoneal air. There is probable mild phlegmon along the anterior and superior borders of the diseased segment of the sigmoid colon without evidence of an abscess. Stomach and small bowel are unremarkable. No evidence of bowel obstruction. Appendix: Unremarkable, no evidence of acute appendicitis. Intraperitoneal space: No ascites. Vasculature: Abdominal aorta is normal. No aneurysm or dissection. Lymph nodes: Unremarkable. No enlarged lymph nodes. Bladder: Unremarkable as visualized. Reproductive: There is nonspecific enlargement of the prostate gland, correlate clinically. Bones/joints: There are degenerative changes of the thoracolumbar spine. Soft tissues: There is a small fat containing umbilical hernia. IMPRESSION: 1. Stable acute sigmoid diverticulitis with evidence of bowel perforation with a stable amount of free intraperitoneal air as well as stable extraluminal air adjacent to the region of diverticulitis. 2. Multiple calcified gallstones. No biliary dilatation. 3. Stable tiny focus of air in the right lobe of the liver, difficult to explain its presence. 4. THIS REPORT CONTAINS FINDINGS THAT MAY BE CRITICAL TO PATIENT CARE. The findings were verbally communicated via telephone conference with ROSSANA ASIF at 11:30 AM EST on 08/31/2019. The findings were acknowledged and understood. THIS DOCUMENT HAS BEEN ELECTRONICALLY SIGNED BY FLAQUITA LORENZO MD Performing Organization Address City/[facility]/Zipcode Phone Number [facility] [address] [place] [address] Basic Metabolic Panel (08/31/2019 1:06 AM EST) Bicarbonate 23 22 - 29 mmol/L [facility] Chloride 99 98 - 107 mmol/L [facility] Creatinine 0.67 (L) 0.70 - 1.20 [facility] mg/dL [facility] Glucose 114 70 - 140 mg/dL [facility] Potassium 3.8 3.4 - 5.1 [facility] mmol/L [facility] Sodium 132 (L) 136 - 145 [facility] mmol/L [facility] Blood Urea Nitrogen 6 6 - 20 mg/dL [facility] Anion Gap 10 8 - 15 mmol/L [facility] Osmolality, [place] 272 (L) 275 - 300 [facility] mosm/kg [facility] BUN/Cre Ratio 9 [facility] Calcium 8.4 (L) 8.6 - 10.0 [facility] mg/dL [facility] GFR Non >90 >60 [facility] Citizen Of [place] 2009 CDK-EPI mL/min/1.73m2 [facility] Pathology GFR >90 >60 [facility] 2009 CKD-EPI mL/min/1.73m2 [facility] Pathology Specimen Plasma Performing Organization Address City/[facility]/Zipcode Phone Number [facility] [address] [place] [address] [facility] [address] [place] [address] Pathology Magnesium Level (08/31/2019 1:06 AM EST) Magnesium 1.8 1.6 - 2.6 mg/dL [facility] Specimen Plasma Performing Organization Address [facility] Phone Number [facility] [address] [place] [address] [facility] [address] [place] [phone] Pathology Phosphorus Level (08/31/2019 1:06 AM EST) Phosphorus 3.0 2.5 - 4.5 mg/dL [facility] Specimen Plasma Performing Organization Address [facility] [place] [place] Phone Number [facility] PATH[facility] [address] [place] [address] [phone] [facility] [address] [place] [phone] Pathology CBC (08/31/2019 1:06 AM EST) White Blood Cell 15.5 (H) 4 - 10 10*3/uL [facility] Red Blood Cell 4.99 4.6 - 6.1 [facility] 10*6/uL [facility] Hemoglobin 14.6 13.5 - 18 g/dL [facility] Hematocrit 42.7 41 - 53 % [facility] Mean Cell Volume 85.6 80 - 96 fL [facility] Mean Cell Hemoglobin 29.3 27 - 33 pg [facility] Mean Cell Hgb Conc 34.2 32.0 - 36.0 [facility] g/dL [facility] Red Cell Dist Width 12.8 11.5 - 14.5 % [facility] Platelet Count 181 150 - 400 [facility] 10*3/uL [facility]ology Specimen EDTA Whole Blood Performing Organization Address [facility] Phone Number [facility] [address] [place] [address] [facility] [address] [place] [phone] Pathology Hepatic Function Panel (08/31/2019 1:06 AM EST) Albumin 3.8 3.5 - 5.2 g/dL [facility] Bilirubin, Total 0.8 <1.2 mg/dL [facility] Bilirubin, Direct 0.2 <0.3 mg/dL [facility] Alkaline Phosphatase 118 40 - 129 U/L [facility] AST/SGO 16 <40 U/L [facility] ALT/SGP 10 <41 U/L [facility] Total Protein 6.1 (L) 6.4 - 8.3 g/dL [facility] Specimen Plasma Performing Organization Address [facility] [place] [place] Phone Number [facility] [address] [place] [address] [phone] [facility] [address] [place] [address] Pathology Partial Thromboplastin Time (PTT) (08/31/2019 1:06 AM EST) PTT Patient (PAT) 37.3 (H) 24.0 - 34.0 s [facility] Specimen Plasma Performing Organization Address [facility] [place] [place] Phone Number [facility] [address] [place] [address] [facility] [address] [place] [address] Pathology Protime-INR (08/31/2019 1:06 AM EST) PT Patient 15.0 (H) 12.5 - 14.9 [facility] Pathology Int'l Normalized 1.14Comment: Routine [facility] oral Univ Clin anticoagulation INR is Pathology typically 2.0-3.0. Target INR must be clinically individualized. Specimen Plasma Performing Organization Address [facility] [place], [place] Phone Number [facility] [address] [place] [address] [facility] [address] [place] [phone] Pathology Lactic Acid Level, Plasma (08/31/2019 1:06 AM EST) Lactic Acid 0.6 0.5 - 2.2 mmol/l [facility] Specimen Plasma Performing Organization Address 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 simple partial seizures, without mention of intractable epilepsy documented in this encounter Administered Medications Medication Order MAR Action Action Date Dose Rate Site acetaminophen (TYLENOL) tablet Given 09/03/2019 8:23 AM EST 650 mg 650 mg 650 mg, Oral, Every 6 hours, First dose on 09/01/19 at 2015, For 30 days, Maximum daily dose of acetaminophen is 3,000 mg from all sources in 24 hours., Given 09/03/2019 3:34 AM EST 650 mg Given 09/02/2019 8:35 PM EST 650 mg allopurinol (ZYLOPRIM) tablet 100 mg Given 09/03/2019 8:23 AM EST 100 mg 100 mg, Oral, Daily Standard, First dose on 08/31/19 at 0900, For 30 days Given 09/02/2019 8:50 AM EST 100 mg Given 09/01/2019 8:59 AM EST 100 mg bisacodyl (DULCOLAX) suppository 10 mg 10 mg, Rectal, Daily PRN, Constipation, Starting Sun09/01/19 at 2013, For 30 days calcium carbonate (TUMS) chewable tablet 500 Given 09/03/2019 10:52 AM EST 500 mg mg 500 mg, Oral, Daily PRN, Indigestion, Starting Sun09/01/19 at 2014, For 30 days Given 09/02/2019 10:07 PM EST 500 mg cefTRIAXone (ROCEPHIN) IVPB (premix) New Bag 09/03/2019 12:33 AM EST 2 g 100 mL/hr 2 g 2 g, Intravenous, at 100 mL/hr, Every 24 hours, First dose on 08/31/19 at 0045, For 5 doses, Discouraged Uses: Empiric treatment of post-surgical meningitis (ceftazidime preferred), New Bag 09/02/2019 12:00 AM EST 2 g 100 mL/hr New Bag 09/01/2019 1:32 AM EST 2 g 100 mL/hr dicyclomine (BENTYL) capsule 10 mg Given 09/03/2019 8:23 AM EST 10 mg 10 mg, Oral, 2 Times Daily, First dose on 08/31/19 at 0900, For 30 days Given 09/02/2019 8:34 PM EST 10 mg Given 09/02/2019 8:50 AM EST 10 mg docusate sodium (COLACE) capsule 100 mg Given 09/03/2019 8:24 AM EST 100 mg 100 mg, Oral, 2 Times Daily, First dose on 09/01/19 at 2100, For 30 days Given 09/02/2019 8:34 PM EST 100 mg Given 09/02/2019 8:50 AM EST 100 mg eslicarbazepine (APTIOM) tablet 1,600 mg Given 09/02/2019 9:04 PM EST 1,600 mg 1,600 mg, Oral, Nightly, First dose on 08/31/19 at 2200, For 30 days Given 09/01/2019 9:49 PM EST 1,600 mg Given 08/31/2019 9:16 PM EST 1,600 mg fentaNYL (SUBLIMAZE) (PF) Given by IV push 09/03/2019 3:34 AM EST 25 mcg injection 25 mcg 25 mcg, Intravenous, Every 3 hours PRN, breakthrough, Starting Sun09/02/19 at 2026, For 2 days Given by IV push 09/03/2019 12:34 AM EST 25 mcg New 09/02/2019 9:01 PM EST 25 mcg ibuprofen (ADVIL,MOTRIN) tablet 600 mg Given 09/03/2019 6:58 AM EST 600 mg 600 mg, Oral, Every 6 hours PRN, Mild Pain (Pain Scale Score 1-3), Starting Sun08/31/19 at 0029, For 30 days, Take with food., Given 08/31/2019 6:14 AM EST 600 mg lacosamide (VIMPAT) injection 200 mg New 09/03/2019 8:19 AM EST 200 mg 200 mg, Intravenous, 2 Times Daily, First dose on 08/31/19 at 0900, For 30 days New 09/02/2019 8:34 PM EST 200 mg New 09/02/2019 8:51 AM EST 200 mg loratadine (CLARITIN) tablet 10 mg Given 09/03/2019 8:23 AM EST 10 mg 10 mg, Oral, Daily Standard, First dose on 08/31/19 at 0900, For 30 days Given 09/02/2019 8:50 AM EST 10 mg Given 09/01/2019 8:59 AM EST 10 mg Magnesium Oxide (MAG-OX) tablet 400 mg Given 09/03/2019 8:23 AM EST 400 mg 400 mg, Oral, Daily Standard, First dose on 08/31/19 at 0900, For 7 days Given 09/02/2019 8:50 AM EST 400 mg Given 09/01/2019 8:59 AM EST 400 mg melatonin tablet 5 mg Given 09/02/2019 10:07 PM EST 5 mg 5 mg, Oral, Nightly, First dose on 09/01/19 at 2200, For 30 days Given 09/01/2019 9:48 PM EST 5 mg metoprolol (LOPRESSOR) tablet 100 mg Given 09/03/2019 8:23 AM EST 100 mg 100 mg, Oral, Daily Standard, First dose on 08/31/19 at 0900, For 30 days Given 09/02/2019 8:50 AM EST 100 mg Given 09/01/2019 6:41 AM EST 100 mg metroNIDAZOLE (FLAGYL) IVPB 500 mg New Bag 09/03/2019 9:21 AM EST 500 mg 100 mL/hr 500 mg, Intravenous, Administer over 60 Minutes, Every 8 hours, First dose on 08/31/19 at 0045, For 7 days New 09/03/2019 1:46 AM EST 500 mg 100 mL/hr New 09/02/2019 7:01 PM EST 500 mg 100 mL/hr ondansetron (ZOFRAN) injection 4 mg Given by IV push 09/03/2019 12:55 AM EST 4 mg 4 mg, Intravenous, Every 8 hours PRN, Nausea, Vomiting, Starting Sun08/31/19 at 0029, For 30 days New 09/02/2019 11:33 AM EST 4 mg New 09/01/2019 5:59 PM EST 4 mg oxyCODONE (ROXICODONE) 5 MG/5ML solution 5 mg 5 mg, Oral, Every 4 hours PRN, Moderate Pain (Pain Scale Score 4-6), Starting Sun09/02/19 at 2026, For 72 hours oxyCODONE (ROXICODONE) immediate release Given 09/03/2019 4:53 AM EST 10 mg tablet 10 mg 10 mg, Oral, Every 4 hours PRN, Severe Pain (Pain Scale Score 7-10), Starting Sun09/02/19 at 2025, For 72 hours, Oxycodone immediate release is limited to 10 mg per dose. Higher doses ( only) require Pain Service consultation and approval., Given 09/02/2019 8:42 PM EST 10 mg pantoprazole (PROTONIX) injection 40 mg New Bag 09/03/2019 8:23 AM EST 40 mg 40 mg, Intravenous, 2 Times Daily, First dose on Sun08/31/19 at 0900, For 30 days New Bag 09/02/2019 8:35 PM EST 40 mg New Bag 09/02/2019 8:51 AM EST 40 mg polyethylene glycol (MIRALAX) packet 17 g Given 09/03/2019 10:52 AM EST 17 g 17 g, Oral, Daily Standard, First dose (after last modification) on Sun09/03/19 at 1030, For 30 days, Mix in 8 ounces of water, juice or milk. Avoid use in patients who require thickened liquids due to potential increased risk for aspiration., potassium chloride (K-DUR,KLOR-CON) Given 09/03/2019 8:23 AM EST 40 mEq dissolvable tablet 40 mEq 40 mEq, Oral, Daily Standard, First dose (after last reorder) on Sun09/03/19 at 0900, For 3 days, May be dissolved in water for patients with a G-Tube or unable to swallow. If concern for clogging G-Tube, may contact Pharmacy to switch formulation to a powder packet., sertraline (ZOLOFT) tablet 100 mg Given 09/03/2019 8:24 AM EST 100 mg 100 mg, Oral, Daily Standard, First dose (after last modification) on Sun08/31/19 at 0900, For 30 days Given 09/02/2019 8:50 AM EST 100 mg Given 09/01/2019 8:59 AM EST 100 mg sucralfate (CARAFATE) tablet 1 g Given 09/03/2019 10:52 AM EST 1 g 1 g, Oral, Before Meals - Three Times Daily, First dose on Sun08/31/19 at 0730, For 30 days Given 09/03/2019 6:58 AM EST 1 g Given 09/02/2019 5:32 PM EST 1 g Medication Order MAR Action Action Date Dose Rate Site acetaminophen (OFIRMEV) New 08/31/2019 11:42 AM 1,000 mg 400 mL/hr infusion 1,000 mg EST 1,000 mg, Intravenous, Administer over 15 Minutes, Every 8 hours PRN, Mild Pain (Pain Scale Score 1-3), Starting [place] 08/31/19 at 0046, For 1 day, Maximum dose 3 gm daily from all sources, New 08/31/2019 2:53 AM EST 1,000 mg 400 mL/hr dextrose 5 %-0.9 % sodium Rate/Dose Verify 09/03/2019 6:00 AM EST 100 mL/ hr chloride infusion at 100 mL/hr, Intravenous, Continuous, Starting [place] 08/31/19 at 0030, For 30 days New 09/03/2019 4:48 AM EST 100 mL/hr Rate/Dose Verify 09/03/2019 2:00 AM EST 100 mL/hr famotidine (PEPCID) in sodium New 09/01/2019 9:13 AM EST 20 mg 200 mL/ hr chloride 0.9 % IVPB 20 mg (premix) 20 mg, Intravenous, Administer over 15 Minutes, 2 Times Daily, First dose (after last reorder) on Sun08/31/19 at 0900, For 7 days New 08/31/2019 10:43 PM EST 20 mg 200 mL/hr New 08/31/2019 9:24 AM EST 20 mg 200 mL/hr fentaNYL (SUBLIMAZE) (PF) Given by IV push 09/01/2019 5:04 PM EST 25 mcg injection 25 mcg 25 mcg, Intravenous, Every 3 hours PRN, breakthrough, Starting [place] 08/31/19 at 0113, For 2 days Given by IV push 09/01/2019 11:31 AM EST 25 mcg New 08/31/2019 9:36 PM EST 25 mcg fentaNYL (SUBLIMAZE) (PF) injection 25 mcg Given 09/01/2019 12:11 PM EST 25 mcg 25 mcg, Intravenous, Once, [facility] 09/01/19 at 1215, For 1 dose fentaNYL (SUBLIMAZE) (PF) injection 25 mcg New 09/02/2019 2:24 PM EST 25 mcg 25 mcg, Intravenous, Every 3 hours PRN, breakthrough, Starting Sun09/01/19 at 2011, For 2 days New 09/02/2019 7:27 AM EST 25 mcg New 09/01/2019 8:31 PM EST 25 mcg iohexol (OMNIPAQUE) 300 MG/ML contrast Given 08/31/2019 10:36 AM EST 100 mLs injection 100 mL 100 mL, Given by IV, 1 TIME IMAGING, [place] 08/31/19 at 1030, For 1 dose ketorolac (TORADOL) injection 30 mg 09/01/2019 1:25 PM EST 30 mg 30 mg, Intravenous, Once, Sun09/01/19 at 1245, For 1 dose labetalol (NORMODYNE,TRANDATE) injection 20 New 09/01/2019 9:51 PM EST 20 mg mg 20 mg, Intravenous, Once, [facility] 09/01/19 at 2030, For 1 dose morphine sulfate (PF) injection 2 mg 09/02/2019 8:50 AM EST 2 mg 2 mg, Intravenous, Once, [facility] 09/02/19 at 0800, For 1 dose oxyCODONE (ROXICODONE) 5 MG/5ML solution 5 mg Given 09/01/2019 10:53 AM EST 5 mg 5 mg, Oral, Every 4 hours PRN, Moderate Pain (Pain Scale Score 4-6), Starting [place] 08/31/19 at 0113, For 3 days oxyCODONE (ROXICODONE) immediate release Given 09/02/2019 5:32 PM EST 10 mg tablet 10 mg 10 mg, Oral, Every 4 hours PRN, Severe Pain (Pain Scale Score 7-10), Starting [place] 08/31/19 at 0113, For 3 days, Oxycodone immediate release is limited to 10 mg per dose. Higher doses ( only) require Pain Service consultation and approval., Given 09/02/2019 10:53 AM EST 10 mg Given 09/02/2019 6:38 AM EST 10 mg potassium chloride (K-DUR,KLOR-CON) Given 09/02/2019 6:08 AM EST 40 mEq dissolvable tablet 40 mEq 40 mEq, Oral, Once, Sun09/02/19 at 0545, For 1 dose, May be dissolved in water for patients with a G-Tube or unable to swallow. If concern for clogging G-Tube, may contact Pharmacy to switch formulation to a powder packet., potassium chloride (K-DUR,KLOR-CON) Given 09/02/2019 11:56 AM EST 40 mEq dissolvable tablet 40 mEq 40 mEq, Oral, Once, 09/02/19 at 1200, For 1 dose, May be dissolved in water for patients with a G-Tube or unable to swallow. If concern for clogging G-Tube, may contact Pharmacy to switch formulation to a powder packet., documented in this encounter
[2019-10-05 13:48] VITALS: BP 139/80
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
== END 2019-10-05 15:06 | disposition home or self-care (01) ==
LOC: UCCORT 13:07
DX: M54.5 Low back pain (principal); M25.551 Pain in right hip; G89.29 Other chronic pain; G40.909 Epilepsy, unspecified, not intractable, without status epilepticus; M51.36 Other intervertebral disc degeneration, lumbar region; M47.816 Spondylosis without myelopathy or radiculopathy, lumbar region; Z79.899 Other long term (current) drug therapy; Z87.891 Personal history of nicotine dependence; Z88.0 Allergy status to penicillin
CPT/HCPCS: 72110; 99212; G0463